=== PATIENT | female | born 1950 | race Caucasian/White ===

== ENCOUNTER → 2016-09-13 | Outpatient (CLI) | payer BC ==
--- NOTE | 2016-09-14 08:15 | MM ---
Reason for exam: screening (asymptomatic). Last mammogram was performed 1 year ago. History: Patient is postmenopausal. Physical Findings: A clinical breast exam by your physician is recommended on an annual basis and results should be correlated with mammographic findings. MG Screening Mammo w CAD Bilateral CC and MLO view(s) were taken. Prior study comparison: September 10, 2015, bilateral MG screening mammo w CAD. September 09, 2014, left breast MG work up mamm w CAD LT. The breast tissue is heterogeneously dense. This may lower the sensitivity of mammography. Finding: There are typically benign round calcifications in both breasts. There is no discrete abnormality. ASSESSMENT: Benign, BI-RAD 2 RECOMMENDATION: Routine screening mammogram of both breasts in 1 year.
== END | disposition home or self-care (01) ==
LOC: RADMAMWWP 07:30
PROVIDERS: ATTEND Obstetrics & Gynecology
DX: Z12.31 Encounter for screening mammogram for malignant neoplasm of breast (principal)

== ENCOUNTER → 2016-11-30 | Outpatient (CLI) | payer BC | END | disposition home or self-care (01) | LOC: LABWHC1 09:39 | PROVIDERS: ATTEND Obstetrics & Gynecology | DX: N83.9 Noninflammatory disorder of ovary, fallopian tube and broad ligament, unspecified (principal) | CPT/HCPCS: 36415; 86304 ==

== ENCOUNTER → 2017-09-05 | Outpatient (CLI) | payer MEDICARE, BC | END | disposition home or self-care (01) | LOC: LABWHC1 06:40 | PROVIDERS: ATTEND Obstetrics & Gynecology | DX: C56.9 Malignant neoplasm of unspecified ovary (principal) | CPT/HCPCS: 36415; 86304 ==

== ENCOUNTER → 2017-09-19 | Outpatient (CLI) | payer MEDICARE, BC ==
--- NOTE | 2017-09-20 10:04 | MM ---
Reason for exam: screening (asymptomatic). Last mammogram was performed 1 year ago. History: Patient is postmenopausal. Physical Findings: A clinical breast exam by your physician is recommended on an annual basis and results should be correlated with mammographic findings. MG Screening Mammo w CAD Bilateral CC and MLO view(s) were taken. Prior study comparison: September 13, 2016, bilateral MG screening mammo w CAD. September 10, 2015, bilateral MG screening mammo w CAD. The breast tissue is heterogeneously dense. This may lower the sensitivity of mammography. There are few typically benign round calcifications in both breasts. There is no discrete abnormality. ASSESSMENT: Benign, BI-RAD 2 RECOMMENDATION: Routine screening mammogram of both breasts in 1 year.
== END | disposition home or self-care (01) ==
LOC: RADMAMWWP 07:56
PROVIDERS: ATTEND Obstetrics & Gynecology
DX: Z12.31 Encounter for screening mammogram for malignant neoplasm of breast (principal)
CPT/HCPCS: 77067

== ENCOUNTER → 2017-09-30 | Outpatient (CLI) | payer MEDICARE, BC | END | disposition home or self-care (01) | LOC: LABWHC1 06:41 | PROVIDERS: ATTEND Obstetrics & Gynecology | DX: C56.9 Malignant neoplasm of unspecified ovary (principal) | CPT/HCPCS: 36415; 86304 ==

== ENCOUNTER → 2017-10-28 | Outpatient (CLI) | payer BC, MEDICARE | LOC: LABWHC1 06:45 | PROVIDERS: ATTEND Obstetrics & Gynecology | DX: C56.9 Malignant neoplasm of unspecified ovary (principal) | CPT/HCPCS: 36415; 86304 ==

== ENCOUNTER → 2018-09-20 | Outpatient (CLI) | payer MEDICARE, BC ==
--- NOTE | 2018-09-21 09:32 | MM ---
Reason for exam: screening (asymptomatic). Last mammogram was performed 1 year ago. History: Patient is postmenopausal. Physical Findings: A clinical breast exam by your physician is recommended on an annual basis and results should be correlated with mammographic findings. MG 3D Screening Mammo W/Cad Bilateral CC and MLO view(s) were taken. XCCL view(s) were taken of the right breast. Prior study comparison: September 19, 2017, bilateral MG screening mammo w CAD. September 13, 2016, bilateral MG screening mammo w CAD. The breast tissue is heterogeneously dense. This may lower the sensitivity of mammography. There is chronic nodularity in the right breast. No significant changes when compared with prior studies. ASSESSMENT: Benign, BI-RAD 2 RECOMMENDATION: Routine screening mammogram of both breasts in 1 year.
== END | disposition home or self-care (01) ==
LOC: RADMAMWWP 07:35
PROVIDERS: ATTEND Family Medicine
DX: Z12.31 Encounter for screening mammogram for malignant neoplasm of breast (principal)
CPT/HCPCS: 77063; 77067

== ENCOUNTER → 2018-10-11 | Outpatient (CLI) | payer MEDICARE, BC ==
[2018-10-11 07:09] LABS: HCT 38.8 % (34.0-46.0); HGB 12.3 gm/dL (11.4-16.0); MCH 30.1 pg (25.0-35.0); MCHC 31.8 g/dL (31.0-37.0); MCV 94.6 fL (80.0-100.0); Mean Platelet Volume 7.6; Platelet Count 365 k/uL (150-450); RDW 13.6 % (11.5-15.5); WBC 9.5 k/uL (3.8-10.6)
[2018-10-11 11:50] LABS: Albumin 4.6 g/dL (3.80-4.90); Albumin/Globulin Ratio 1.92 (1.60-3.17); Anion Gap 8.5 mmol/L (4.00-12.00); Calcium 9.8 mg/dL (8.7-10.3); Carbon Dioxide 25.5 mmol/L (21.6-31.8); Globulin 2.4 g/dL (1.6-3.3); LDL Cholesterol,Calculated 64.2 mg/dL (0.0-131.0); Potassium 4.5 mmol/L (3.5-5.5); Total Bilirubin 0.5 mg/dL (0.3-1.2); VLDL Calculation 16.8 mg/dL (5.00-40.00)
[2018-10-11 16:44] LABS: Amorphous Sediment,Urine Few /hpf; Appearance,Urine Turbid (Clear); Bacteria,Urine Many /hpf; Bilirubin,Urine Negative (Negative); Blood,Urine Negative (Negative); Color,Urine Dark Yellow; Glucose,Urine (UA) Negative (Negative); Ketones,Urine Negative (Negative); Leukocyte Esterase,Urine Large (Negative); Mucus,Urine Many /hpf; Nitrite,Urine Negative (Negative); PH, Urine 5.5 (5.0-8.0); Protein,Urine 1+ (Negative); RBC,Urine 3 /hpf (0-5); Specific Gravity,Urine 1.024 (1.001-1.035); Squamous Epithelial Cell,Urine 37 /hpf (0-4); Urobilinogen,Urine <2.0 mg/dL (<2.0); WBC,Urine 107 /hpf (0-5)
[2018-10-13 21:16] LABS: Hemoglobin A1C 6.9 % (4.0-6.0)
== END ==
LOC: LABWHC1 06:46
PROVIDERS: ATTEND Internal Medicine
DX: E11.9 Type 2 diabetes mellitus without complications (principal); E78.5 Hyperlipidemia, unspecified; C56.1 Malignant neoplasm of right ovary
CPT/HCPCS: 36415; 80053; 80061; 81001; 83036; 85027

== ENCOUNTER 2019-07-12 09:18 | Day surgery (SDC) | payer MEDICARE, BC ==
[2019-07-10 14:25] VITALS: BMI 27.4
[~2019-07-12 09:18] MED LIST: LACTATED RINGERS 1,000 ML IV SCH
[2019-07-12 09:56] VITALS: RESP 16; TEMP 97.9
[2019-07-12] MEDS ORDERED: LIDOCAINE 1% 20 ML VIAL (10MG/ML) FOR IV START INTRADERMA ONE (10:00)
[2019-07-12] MEDS ORDERED: PROPOFOL 10 MG/ML 20 ML VIAL IV ONE (10:38)
[2019-07-12] MEDS ORDERED: LIDOCAINE 1% INJ 10MG/ML (20 ML MDV) ONE (10:38)
--- NOTE | 2019-07-12 10:55 | P.PCN ---
Date of Procedure: 07/12/19 Procedure(s) Performed: BRIEF HISTORY: Patient is a 68-year-old pleasant female scheduled for an elective colonoscopy as a part of screening for colorectal neoplasia. PROCEDURE PERFORMED: Colonoscopy. PREOPERATIVE DIAGNOSIS: Screening for colon cancer. IV sedation per Anesthesia. PROCEDURE: After informed consent was obtained, the patient, was brought into the endoscopy unit. IV sedation was administered by Anesthesia under continuous monitoring. Digital rectal examination was normal. Initially the Olympus CF-160 flexible video colonoscope was then inserted in the rectum, gradually advanced into the cecum without any difficulty. Careful examination was performed as the scope was gradually being withdrawn. Ileocecal valve and the appendiceal orifice were visualized and appeared normal. Prep was excellent. Mucosa of the cecum, ascending colon, transverse colon, descending colon, sigmoid colon, and rectum appeared normal. Anastomosis from previous sigmoid resection was located at 15 cm from the anal was there appeared normal. Retroflexion was performed in the rectum and no lesions were seen. The patient tolerated the procedure well. IMPRESSION: Normal-appearing colon from rectum to cecum with no evidence of colorectal neoplasia. RECOMMENDATIONS: Findings of this examination were discussed with the patient as well as her family. She was advised to have a repeat screening colonoscopy in 10 years.
[2019-07-12 11:03] VITALS: BP 108/65; PULSE 90
== END 2019-07-12 11:33 | disposition home or self-care (01) ==
LOC: ORWHC2ENDO 09:18
PROVIDERS: ATTEND Internal Medicine Gastroenterology
DX: Z12.11 Encounter for screening for malignant neoplasm of colon (principal); I10 Essential (primary) hypertension; E78.5 Hyperlipidemia, unspecified; R32 Unspecified urinary incontinence; Z85.43 Personal history of malignant neoplasm of ovary; Z79.899 Other long term (current) drug therapy; Z90.710 Acquired absence of both cervix and uterus; Z90.722 Acquired absence of ovaries, bilateral; Z90.81 Acquired absence of spleen; Z90.49 Acquired absence of other specified parts of digestive tract
CPT/HCPCS: J2001; J2704; G0121

== ENCOUNTER → 2019-07-26 | Outpatient (CLI) | payer MEDICARE, BC ==
--- NOTE | 2019-07-26 08:00 | BD ---
EXAMINATION TYPE: Axial Bone Density DATE OF EXAM: 07/26/2019 COMPARISON: 09.10.2015 CLINICAL HISTORY: 69 YR OLD FEMALE....ICD-10 CODE: M85.80 DISORDER OF BONE Height: 62 Weight: 148 FRAX RISK QUESTIONS: Family History (Parent hip fracture): YES, MOTHER AND BROTHER NO HIP FX Secondary Osteoporosis: YES 3. Menopause before 45: YES AT 46 RISK FACTORS HISTORY OF: Family History of Osteoporosis: YES, MOTHER AND BROTHER..NO HIP FX Active: YES Postmenopausal woman: YES, AT 46 YRS OLD Hyperparathyroidism: NO Adrenal Insufficiency: NO MEDICATIONS: Additional Medications: HX OF DOUBLE CHEMO TREATMENTS, STATIN FOR CHOLESTEROL, CALCIUM AND VIT D Additional History: HX OF OVARIAN CA, OSTEOARTHRITIS EXAM MEASUREMENTS: Bone mineral densitometry was performed using the [employer] System. Bone mineral density as measured about the Lumbar spine is: ----- L1-L4(G/cm2): 1.357 T Score Values are as follows: ----- L1: 0.9 ----- L2: 0.3 ----- L3: 2.0 ----- L4: 2.1 ----- L1-L4: 1.5 Bone mineral density has: Increased 1.9% since study of: 09.10.2015 Bone mineral density about the R hip (g/cm2): 0.850 Bone mineral density about the L hip (g/cm2): 0.852 T Score values are as follows: -----R Neck: -1.9 -----L Neck: -1.8 -----R Total: -1.3 -----L Total: -1.2 Bone mineral density has: Decreased -8.6% since study of: 09.10.2015 FRAX%s: THERE IS A 10.8% CHANCE FOR A MAJOR OSTEOPOROTIC FX AND A 1.6% FOR HIP.....PROBABILITY FOR FX IN 10 YRS TIME IMPRESSION: Osteopenia (T Score between -2.5 and -1). There is slightly increased risk of fracture and the patient may be considered for treatment. Re-Screen 2-5 years. NOTE: T-SCORE=SD OF THE YOUNG ADULT MEAN.
== END | disposition home or self-care (01) ==
LOC: RADBDWWP 07:13
PROVIDERS: ATTEND Internal Medicine
DX: M85.88 Other specified disorders of bone density and structure, other site (principal)
CPT/HCPCS: 77080

== ENCOUNTER → 2019-09-21 | Outpatient (CLI) | payer MEDICARE ==
--- NOTE | 2019-09-24 09:41 | MM ---
Reason for exam: screening (asymptomatic). Last mammogram was performed 1 year ago. History: Patient is postmenopausal and has history of ovarian cancer at age 66. Physical Findings: A clinical breast exam by your physician is recommended on an annual basis and results should be correlated with mammographic findings. MG 3D Screening Mammo W/Cad Bilateral CC and MLO view(s) were taken. Prior study comparison: September 20, 2018, bilateral MG 3d screening mammo w/cad. September 19, 2017, bilateral MG screening mammo w CAD. The breast tissue is heterogeneously dense. This may lower the sensitivity of mammography. Stable benign calcifications. There is no discrete abnormality. No significant changes when compared with prior studies. ASSESSMENT: Benign, BI-RAD 2 RECOMMENDATION: Routine screening mammogram of both breasts in 1 year.
== END | disposition home or self-care (01) ==
LOC: RADMAMWWP 07:31
PROVIDERS: ATTEND Internal Medicine
DX: Z12.31 Encounter for screening mammogram for malignant neoplasm of breast (principal)
CPT/HCPCS: 77063; 77067

== ENCOUNTER → 2020-10-20 | Outpatient (CLI) | payer MEDICARE ==
--- NOTE | 2020-10-22 09:25 | MM ---
Reason for exam: screening (asymptomatic). Last mammogram was performed 1 year and 1 month ago. History: Patient is postmenopausal and has history of ovarian cancer at age 66. Physical Findings: A clinical breast exam by your physician is recommended on an annual basis and results should be correlated with mammographic findings. MG 3D Screening Mammo W/Cad Bilateral CC and MLO view(s) were taken. Prior study comparison: September 21, 2019, bilateral MG 3d screening mammo w/cad. September 20, 2018, bilateral MG 3d screening mammo w/cad. The breast tissue is heterogeneously dense. This may lower the sensitivity of mammography. There is chronic nodularity in the right breast medially. No significant changes when compared with prior studies. ASSESSMENT: Benign, BI-RAD 2 RECOMMENDATION: Routine screening mammogram of both breasts in 1 year.
== END ==
LOC: RADMAMWWP 08:19
PROVIDERS: ATTEND Internal Medicine
DX: Z12.31 Encounter for screening mammogram for malignant neoplasm of breast (principal); Z85.43 Personal history of malignant neoplasm of ovary
CPT/HCPCS: 77063; 77067

== ENCOUNTER → 2020-12-12 | Outpatient (CLI) | payer MEDICARE ==
[2020-12-12 21:11] LABS: African American GFR (CKD) 53.8 (60.0-200.0); Anion Gap 13.7 mmol/L (4.00-12.00); BUN/Creat Ratio 10.83 Ratio (12.00-20.00); Calcium 10.1 mg/dL (8.7-10.3); Carbon Dioxide 23.3 mmol/L (21.6-31.8); Non-African American GFR(CKD) 46.4 (60.0-200.0); Potassium 4.6 mmol/L (3.5-5.5)
[2020-12-13 03:41] LABS: Creatinine,Urine Random 146.2 mg/dL
== END | disposition home or self-care (01) ==
LOC: LABWHC1 12-04 12:30
PROVIDERS: ATTEND Internal Medicine Nephrology
DX: E87.1 Hypo-osmolality and hyponatremia (principal)
CPT/HCPCS: 36415; 80048; 82570; 83935; 84133; 84300

== ENCOUNTER 2021-07-22 08:06 | Day surgery (SDC) | payer MEDICARE ==
[~2021-07-22 08:06] MED LIST changes: +LIDOCAINE 1% (10MG/ML) FOR IV START INTRADERMA PRN
[2021-07-22 08:32] VITALS: TEMP 98.1
[2021-07-22] MEDS ORDERED: PROPOFOL 10 MG/ML 20 ML VIAL IV ONE (09:12)
--- NOTE | 2021-07-22 09:29 | P.PCN ---
Date of Procedure: 07/22/21 Procedure(s) Performed: BRIEF HISTORY: Patient is a 71-year-old pleasant female scheduled for an elective colonoscopy as a part of screening for colon rectal neoplasia. She has history of colon cancer diagnosed 3 years ago. Presently on immunotherapy. PROCEDURE PERFORMED: Colonoscopy. PREOPERATIVE DIAGNOSIS: Screening for colon cancer. IV sedation per Anesthesia. PROCEDURE: After informed consent was obtained, the patient, was brought into the endoscopy unit. IV sedation was administered by Anesthesia under continuous monitoring. Digital rectal examination was normal. Initially the Olympus CF-160 flexible video colonoscope was then inserted in the rectum, gradually advanced into the cecum without any difficulty. Careful examination was performed as the scope was gradually being withdrawn. Ileocecal valve and the appendiceal orifice were visualized and appeared normal. Prep was excellent. Mucosa of the cecum, ascending colon, transverse colon, descending colon, sigmoid colon, and rectum appeared normal. There was evidence of surgical aarti noted in the distal sigmoid colon at 25 cm from the anal verge. Retroflexion was performed in the rectum and no lesions were seen. The patient tolerated the procedure well. IMPRESSION: Normal-appearing colon from rectum to cecum with no evidence of colorectal neoplasia . RECOMMENDATIONS: Findings of this examination were discussed with the patient as well as a family.. She was advised to have a repeat screening colonoscopy in 5 years from now or earlier based on the recommendations of her oncologist.
[2021-07-22 09:34] VITALS: RESP 16
[2021-07-22 09:51] VITALS: BP 155/75; PULSE 66
== END 2021-07-22 10:05 | disposition home or self-care (01) ==
LOC: ORWHC2ENDO 08:06
PROVIDERS: ATTEND Internal Medicine Gastroenterology
DX: Z85.038 Personal history of other malignant neoplasm of large intestine (principal)
CPT/HCPCS: J2704; G0121

== ENCOUNTER → 2021-10-21 | Outpatient (CLI) | payer MEDICARE ==
--- NOTE | 2021-10-22 11:21 | MM ---
Reason for exam: screening (asymptomatic). Last mammogram was performed 1 year ago. History: Patient is postmenopausal and has history of ovarian cancer at age 66. Physical Findings: A clinical breast exam by your physician is recommended on an annual basis and results should be correlated with mammographic findings. MG 3D Screening Mammo W/Cad Bilateral CC and MLO view(s) were taken. Prior study comparison: October 20, 2020, bilateral MG 3d screening mammo w/cad. September 21, 2019, bilateral MG 3d screening mammo w/cad. The breast tissue is heterogeneously dense. This may lower the sensitivity of mammography. Stable benign calcifications. There is chronic nodularity in the right breast. There is no dominant lesion. No significant changes when compared with prior studies. ASSESSMENT: Benign, BI-RAD 2 RECOMMENDATION: Routine screening mammogram of both breasts in 1 year.
== END | disposition home or self-care (01) ==
LOC: RADMAMWWP 07:56
PROVIDERS: ATTEND Internal Medicine
DX: Z12.31 Encounter for screening mammogram for malignant neoplasm of breast (principal); Z78.0 Asymptomatic menopausal state
CPT/HCPCS: 77063; 77067

== ENCOUNTER → 2022-01-07 | Outpatient (CLI) | payer MEDICARE | END | disposition home or self-care (01) | LOC: LABWHC1 09:38 | PROVIDERS: ATTEND Internal Medicine | DX: Z53.9 Procedure and treatment not carried out, unspecified reason (principal) ==

== ENCOUNTER → 2022-01-13 | Outpatient (CLI) | payer MEDICARE ==
--- NOTE | 2022-01-13 11:36 | BD ---
EXAMINATION TYPE: Axial Bone Density DATE OF EXAM: 01/13/2022 COMPARISON: 07-26-2019 CLINICAL HISTORY: 71 years year old Female. ICD-10 CODE: M85.80 Osteopenia Height: 61.5 Weight: 135.5 FRAX RISK QUESTIONS: Alcohol (3 or more units per day): NO Family History (Parent hip fracture): NO Glucocorticoids (More than 3mos): NO History of Fracture in Adulthood: NO Secondary Osteoporosis: 1. Type 1 Diabetes: NO 2. Hyperthyroidism: NO 3. Menopause before 45: NO 4. Malnutrition: NO 5. Chronic liver disease: NO Rheumatoid Arthritis: NO Current Tobacco Use: NO RISK FACTORS HISTORY OF: Hip Fracture (Right/Left): NO Spine Fracture: NO History of Wrist Fracture: RT When: AGE 6 Surgery to Spine/Hip(right/left)/Wrist (right/left): NO Family History of Osteoporosis: MOTHER AND BROTHER Active: YES Diet low in dairy products/other sources of calcium: YES Postmenopausal woman: YES Take estrogen and/or progesterone medications: NO Lost more than 2 inches in height since high school: NO Frequent falls: NO Poor Health: NO Hyperparathyroidism: NO Adrenal Insufficiency: NO MEDICATIONS: Prednisone or other steroids: NO Thyroid Medications: NO Osteoporosis Medications: NO Additional Medications: LISINOPRIL, LYNPARZA, ROSUVASTATIN, VIT D, CALCIUM, EXAM MEASUREMENTS: Bone mineral densitometry was performed using the [employer] System. Bone mineral density as measured about the Lumbar spine is: ----- L1-L4(G/cm2): 1.251 T Score Values are as follows: ----- L1: -0.5 ----- L2: 0.0 ----- L3: 1.3 ----- L4: 1.0 ----- L1-L4: 0.6 Bone mineral density has: DECREASED 6.3 % since study of: 07/26/2019 Bone mineral density about the R hip (g/cm2): 0.731 Bone mineral density about the L hip (g/cm2): 0.750 T Score values are as follows: -----R Neck: -2.2 -----L Neck: -2.1 -----R Total: -1.8 -----L Total: -1.7 Bone mineral density has: DECREASED 7.9 % since study of: 07/26/2019 FRAX%s: The graph provided illustrates a 13.1% chance for a major osteoporotic fx and a 2.8% chance f or the hips probability for fx in 10 years time. IMPRESSION: Osteopenia NOTE: T-SCORE=SD OF THE YOUNG ADULT MEAN.
== END | disposition home or self-care (01) ==
LOC: RADBDWWP 07:46
PROVIDERS: ATTEND Internal Medicine
DX: M85.89 Other specified disorders of bone density and structure, multiple sites (principal)
CPT/HCPCS: 77080

== ENCOUNTER → 2022-07-05 | Outpatient (CLI) | payer MEDICARE ==
[2022-07-05 11:16] LABS: Basophils # (A) 0.03 X 10*3/uL (0.00-0.10); Basophils % (A) 0.5 %; HCT 28.2 % (37.2-46.3); HGB 9.5 g/dL (12.0-15.0); Immature Grans, Automated 0.5 %; Lymphocytes # (A) 1.02 X 10*3/uL (0.90-5.00); Lymphocytes % (A) 17.1 %; MCH 37.3 pg (27.0-32.0); MCHC 33.7 g/dL (32.0-37.0); MCV 110.6 fL (80.0-97.0); Macrocytosis (M) 2+; Mean Platelet Volume 11.3 fL (9.5-12.2); Monocytes # (A) 0.77 X 10*3/uL (0.20-1.00); Monocytes % (A) 12.9 %; NRBC Per 100 WBC 13.9 /100 WBCS (0.0-0.0); Neutrophils # (A) 3.83 X 10*3/uL (1.80-7.70); Platelet Count 290 X 10*3/uL (140-440); RBC 2.55 X 10*6/uL (4.10-5.20); RDW 15.9 % (11.5-14.5); WBC 5.98 X 10*3/uL (4.50-10.00)
[2022-07-05 11:20] LABS: ALT 14 U/L (8-44); AST 19 U/L (13-35); African American GFR (CKD) 59.3 (60.0-200.0); Albumin 4.3 g/dL (3.8-4.9); Albumin/Globulin Ratio 1.72 (1.60-3.17); Alkaline Phosphatase 45 U/L (41-126); BUN/Creat Ratio 11.27 Ratio (12.00-20.00); Blood Urea Nitrogen 12.4 mg/dL (9.0-27.0); Calcium 9.7 mg/dL (8.7-10.3); Carbon Dioxide 23.9 mmol/L (20.0-27.5); Chloride 99 mmol/L (96-109); Chol/HDL Ratio 2.29 Ratio; Globulin 2.5 g/dL (1.6-3.3); Glucose 89 mg/dL (70-110); Magnesium 1.7 mg/dL (1.5-2.4); Non-African American GFR(CKD) 51.2 (60.0-200.0); Potassium 4.3 mmol/L (3.5-5.5); Sodium 134 mmol/L (135-145); Total Protein 6.8 g/dL (6.2-8.2); VLDL Calculation 12.38 mg/dL (5.00-40.00)
[2022-07-05 14:01] LABS: Appearance,Urine Clear (Clear); Bilirubin,Urine Negative (Negative); Blood,Urine Negative (Negative); Color,Urine Light Yellow; Glucose,Urine (UA) Negative (Negative); Ketones,Urine Negative (Negative); Leukocyte Esterase,Urine Negative (Negative); Nitrite,Urine Negative (Negative); PH, Urine 5.5 (5.0-8.0); Protein,Urine Negative (Negative); Urobilinogen,Urine <2.0 mg/dL (<2.0)
== END | disposition home or self-care (01) ==
LOC: LABWHC1 07:20
PROVIDERS: ATTEND Internal Medicine
DX: Z00.00 Encounter for general adult medical examination without abnormal findings (principal); Z11.59 Encounter for screening for other viral diseases; M85.80 Other specified disorders of bone density and structure, unspecified site; R73.01 Impaired fasting glucose
CPT/HCPCS: 36415; 80053; 80061; 81003; 82306; 83036; 83735; 84443; 85025; 86803

== ENCOUNTER → 2022-10-22 | Outpatient (CLI) | payer MEDICARE ==
--- NOTE | 2022-10-25 09:29 | MM ---
Reason for Exam: Screening (asymptomatic). Last screening mammogram was performed 12 month(s) ago. Patient History: Menarche at age 12. First Full-Term at age 23. Left ovary removed at age 66. Right ovary removed at age 66. Hysterectomy at age 66. Postmenopausal. Ovarian cancer, age 66. Risk Values: Jenna 5 year model risk: 1.7%. NCI Lifetime model risk: 5.0%. Prior Study Comparison: 09/21/2019 Bilateral Screening Mammogram, [facility]. 10/20/2020 Bilateral Screening Mammogram, [facility]. 10/21/2021 Bilateral Screening Mammogram, [facility]. Tissue Density: The breast tissue is heterogeneously dense. This may lower the sensitivity of mammography. Findings: Analyzed By CAD. There are a few scattered benign-appearing round and punctate calcifications throughout the bilateral breasts redemonstrated. Stable benign-appearing bilateral axillary lymph nodes. Stable circumscribed 6 mm rounded mass in the right breast. There is no suspicious new group of microcalcifications or new or enlarging suspicious mass in either breast. Overall Assessment: Benign, BI-RAD 2 Management: Screening Mammogram of both breasts in 1 year. A clinical breast exam by your physician is recommended on an annual basis and results should be correlated with mammographic findings. Electronically signed and approved by: Cuate Diamond M.D.
== END | disposition home or self-care (01) ==
LOC: RADMAMWWP 07:25
PROVIDERS: ATTEND Internal Medicine
DX: Z12.31 Encounter for screening mammogram for malignant neoplasm of breast (principal); Z78.0 Asymptomatic menopausal state
CPT/HCPCS: 77063; 77067

== ENCOUNTER 2023-02-13 06:26 | Inpatient (IN) | payer MEDICARE ==
--- NOTE | 2023-02-13 06:54 | ED ---
SOB HPI - General Chief Complaint: Shortness of Breath Stated Complaint: SOB Time Seen by Provider: 02/13/23 06:42 Source: patient, EMS, RN notes reviewed, old records reviewed Mode of arrival: EMS Limitations: no limitations - History of Present Illness Initial Comments: This is a pleasant 72-year-old female who presents to the emergency room with family member complaining of shortness of breath upon awakening this morning. She denies any chest pain. States that she has had a cough and her shortness of breath is worse when she lays flat. She is being treated with chemotherapy for ovarian cancer. Her last dose was 2 weeks ago and is scheduled for her second dose next week. She denies any fevers, no nausea vomiting or diarrhea. No abdominal pain. No leg swelling. She does have a history of hypertension, osteoarthritis and diabetes. MD Complaint: shortness of breath -: hour(s) Severity scale (1-10): 0 Consistency: constant Improves With: nothing Worsens With: lying flat Known History Of: diabetes, other (ovarian cancer on chemo) Associated Symptoms: cough - Related Data Home Medications Medication Instructions Recorded Confirmed lisinopriL [Prinivil] 20 mg PO DAILY 07/10/19 02/13/23 Gabapentin 300 mg PO HS 02/13/23 02/13/23 Mirtazapine 7.5 mg PO HS 02/13/23 02/13/23 Pantoprazole Sodium [Protonix] 20 mg PO BID 02/13/23 02/13/23 Rosuvastatin Calcium 5 mg PO HS 02/13/23 02/13/23 Allergies Allergy/AdvReac Type Severity Reaction Status Date / Time No Known Allergies Allergy Verified 02/13/23 11:53 Review of Systems ROS Statement: Those systems with pertinent positive or pertinent negative responses have been documented in the HPI. ROS Other: All systems not noted in ROS Statement are negative. Past Medical History Past Medical History: Cancer, Diabetes Mellitus, Hypertension, Osteoarthritis (OA) Additional Past Medical History / Comment(s): Hx ovarian CA, constipation, urinary leakage, History of Any Multi-Drug Resistant Organisms: None Reported Past Surgical History: Appendectomy, Bladder Surgery, Hysterectomy Additional Past Surgical History / Comment(s): bladder suspension, lymph nodes and part of bowel removed with hysterectomy Past Anesthesia/Blood Transfusion Reactions: No Reported Reaction Past Psychological History: No Psychological Hx Reported Past Alcohol Use History: Occasional Past Drug Use History: None Reported - Past Family History Brother(s) Family Medical History: Cancer Mother Family Medical History: Cancer Father Family Medical History: Cancer General Exam Limitations: no limitations General appearance: alert, in no apparent distress Head exam: Present: atraumatic Eye exam: Present: normal appearance. Absent: scleral icterus, conjunctival injection, periorbital swelling Neck exam: Present: full ROM. Absent: meningismus Respiratory exam: Present: rales (bilateral bases). Absent: respiratory distress, chest wall tenderness, accessory muscle use Cardiovascular Exam: Present: tachycardia GI/Abdominal exam: Present: soft Extremities exam: Present: normal capillary refill. Absent: pedal edema, calf tenderness Neurological exam: Present: alert, oriented X3 Psychiatric exam: Present: normal affect, normal mood Skin exam: Present: warm, dry, normal color. Absent: cyanosis, diaphoretic, petechiae, pallor Course Vital Signs 02/13/23 02/13/23 02/13/23 06:32 09:24 09:41 Temperature 97.9 F Pulse Rate 100 96 Respiratory 24 24 Rate Blood Pressure 194/115 169/96 165/102 O2 Sat by Pulse 93 L 100 Oximetry Medical Decision Making - Medical Decision Making Was pt. sent in by a medical professional or institution (, PA, HIGH SPEED PRINTER OPERATOR, urgent care, hospital, or shelter...) When possible be specific @ -No Did you speak to anyone other than the patient for history (EMS, parent, family, police, friend...)? What history was obtained from this source @ -Daughter was able to provide medical history for ovarian cancer diagnosis and chemotherapy treatments Did you review nursing and triage notes (agree or disagree)? Why? @ -I reviewed and agree with nursing and triage notes Were old charts reviewed (outside hosp., previous admission, EMS record, old EKG, old radiological studies, urgent care reports/EKG's, shelter records)? Report findings @ -No old charts were reviewed Differential Diagnosis (chest pain, altered mental status, abdominal pain women, abdominal pain men, vaginal bleeding, weakness, fever, dyspnea, syncope, headache, dizziness, GI bleed, back pain, seizure, CVA, palpatations, mental health, musculoskeletal)? @ -Differential Dyspnea: Coronary syndrome, arrhythmia, tamponade, asthma, COPD, pulmonary embolism, p neumonia, pneumothorax, pulmonary effusion, anaphylaxis, diabetic ketoacidosis, flailed chest, pulmonary contusion, diaphragmatic rupture, anemia, neuromuscular, this is not meant to be an all-inclusive list. EKG interpreted by me (3pts min.). @ -yes EKG interpreted by me shows sinus tachycardia with a ventricular rate of 101, IA interval 0.185, QRS 0.77, QTC 0.389, normal axis. No concerning changes compared to old 05/31/2015. X-rays interpreted by me (1pt min.). @ -yes Chest x-ray interpreted by me shows no evidence of focal consolidation. Blunting of bilateral costophrenic angles. Trachea midline. CT interpreted by me (1pt min.). @ -no U/S interpreted by me (1pt. min.). @ -None done What testing was considered but not performed or refused? (CT, X-rays, U/S, labs)? Why? @ -None What meds were considered but not given or refused? Why? @ -None Did you discuss the management of the patient with other professionals (professionals i.e. , PA, HIGH SPEED PRINTER OPERATOR, lab, RT, psych nurse, secondary social studies teacher, bottom scrubber, teacher, chief supply chain officer, bilingual case manager)? Give summary @ -No Was smoking cessation discussed for >3mins.? @ -No Was critical care preformed (if so, how long)? @ -No Were there social determinants of health that impacted care today? How? (Homelessness, low income, unemployed, alcoholism, drug addiction, felder sportation, low edu. Level, literacy, decrease access to med. care, group home, rehab)? @ -No Was there de-escalation of care discussed even if they declined (Discuss DNR or withdrawal of care, Hospice)? DNR status @ -No What co-morbidities impacted this encounter? (DM, HTN, Smoking, COPD, CAD, Cancer, CVA, ARF, Chemo, Hep., AIDS, mental health diagnosis, sleep apnea, morbid obesity)? @ -History of ovarian cancer, diabetes, hypertension, osteoarthritis, appendectomy, hysterectomy Was patient admitted / discharged? Hospital course, mention meds given and route, prescriptions, significant lab abnormalities, going to OR and other pertinent info. @ -Admitted This is a pleasant 72-year-old female who presents to the emergency room with family member complaining of shortness of breath upon awakening this morning. She denies any chest pain. States that she has had a cough and her shortness of breath is worse when she lays flat. She is being treated with chemotherapy for ovarian cancer. Her last dose was 2 weeks ago and is scheduled for her second dose next week. She denies any fevers, no nausea vomiting or diarrhea. No abdominal pain. No leg swelling. Patient states this is her third recurrence of ovarian cancer initial diagnosis in November 2016, again November 2019 and was recently again in November 2022. Found this time in pelvic lymph nodes. Currently being treated at [facility] with IV chemotherapy first dose 2 weeks ago. EKG interpreted by me shows sinus tachycardia with a ventricular rate of 101, IA interval 0.185, QRS 0.77, QTC 0.389, normal axis. No concerning changes compared to old 05/31/2015. Patient denies any chest pain however continues to be short of breath. Patient was given Lasix, nitro and Vasotec for her hypertensive urgency. States improvement in her breathing. Chest x-ray interpreted by me shows no evidence of focal consolidation. Blunting of bilateral costophrenic angles. Trachea midline. Radiologist interpretation background COPD changes with pulmonary vascular congestion and small bilateral pleural effusions. Troponin elevated at 0.102, magnesium 1.4, sodium 124, d-dimer elevated, patient was started on heparin drip. CTA of the chest shows no evidence of pulmonary embolism. Cardiomegaly with p ulmonary vascular congestion, and Trileptal either septal thickening and moderate bilateral pleural effusions consistent with CHF exacerbation. Patient will be admitted with NSTEMI, new onset CHF, hyponatremia and hypomagnesemia. She is agreeable to this plan of care Case discussed with Dr. Boswell Undiagnosed new problem with uncertain prognosis? @ -New onset congestive heart failure Drug Therapy requiring intensive monitoring for toxicity (Heparin, Nitro, Insulin, Cardizem)? @ -Heparin Were any procedures done? @ -No Diagnosis/symptom? @ -nstemi, new onset congestive heart failure, hyponatremia, hypomagnesemia, ovarian cancer, hypertensive urgency, elevated d-dimer Acute, or Chronic, or Acute on Chronic? @ -Acute Uncomplicated (without systemic symptoms) or Complicated (systemic symptoms)? @ -Complicated Side effects of treatment? @ -No Exacerbation, Progression, or Severe Exacerbation? @ -No Poses a threat to life or bodily function? How? (Chest pain, [place], [place], pneumonia, PE, COPD, DKA, ARF, appy, cholecystitis, CVA, Diverticulitis, Homicidal, Suicidal, threat to staff... and all critical care pts) @ -Yes new-onset congestive heart failure, NSTEMI - Lab Data Result diagrams: 02/13/23 06:55 02/13/23 09:00 Lab Results 02/13/23 02/13/23 02/13/23 Range/Units 06:55 06:55 06:55 WBC 3.8 (3.8-10.6) k/uL RBC 2.72 L (3.80-5.40) m/uL Hgb 9.5 L (11.4-16.0) gm/dL Hct 27.9 L (34.0-46.0) % MCV 102.8 H (80.0-100.0) fL MCH 34.9 (25.0-35.0) pg MCHC 33.9 (31.0-37.0) g/dL RDW 15.9 H (11.5-15.5) % Plt Count 236 (150-450) k/uL MPV 8.7 Neutrophils % 57 % Lymphocytes % 29 % Monocytes % 10 % Eosinophils % 1 % Basophils % 0 % Neutrophils # 2.2 (1.3-7.7) k/uL Lymphocytes # 1.1 (1.0-4.8) k/uL Monocytes # 0.4 (0-1.0) k/uL Eosinophils # 0.0 (0-0.7) k/uL Basophils # 0.0 (0-0.2) k/uL Macrocytosis Slight PT 10.1 (9.0-12.0) sec INR 0.9 (<1.2) APTT 19.5 L (22.0-30.0) sec D-Dimer 1.17 H (<0.60) mg/L FEU Sodium 124 L (137-145) mmol/L Potassium 4.6 (3.5-5.1) mmol/L Chloride 95 L (98-107) mmol/L Carbon Dioxide 18 L (22-30) mmol/L Anion Gap 11 mmol/L BUN 13 (7-17) mg/dL Creatinine 0.74 (0.52-1.04) mg/dL Est GFR (CKD-EPI)AfAm >90 (>60 ml/min/1.73 sqM) Est GFR (CKD-EPI)NonAf 83 (>60 ml/min/1.73 sqM) Glucose 116 H (74-99) mg/dL Osmolality (280-301) mosm/kg Plasma Lactic Acid [place] (0.7-2.0) mmol/L Calcium 8.6 (8.4-10.2) mg/dL Magnesium 1.5 L (1.6-2.3) mg/dL Total Bilirubin 0.4 (0.2-1.3) mg/dL AST 49 H (14-36) U/L ALT 36 H (4-34) U/L Alkaline Phosphatase 53 (38-126) U/L Troponin I (0.000-0.034) ng/mL NT-Pro-B Natriuret Pep pg/mL Total Protein 6.3 (6.3-8.2) g/dL Albumin 3.6 (3.5-5.0) g/dL TSH (0.465-4.680) mIU/L Cortisol ug/dL Urine Color Urine Appearance (Clear) Urine pH (5.0-8.0) Ur Specific [place] (1.001-1.035) Urine Protein (Negative) Urine Glucose (UA) (Negative) Urine Ketones (Negative) Urine Blood (Negative) Urine Nitrite (Negative) Urine Bilirubin (Negative) Urine Urobilinogen (<2.0) mg/dL Ur Leukocyte Esterase (Negative) 02/13/23 02/13/23 02/13/23 Range/Units 06:55 06:55 06:55 WBC (3.8-10.6) k/uL RBC (3.80-5.40) m/uL Hgb (11.4-16.0) gm/dL Hct (34.0-46.0) % MCV (80.0-100.0) fL MCH (25.0-35.0) pg MCHC (31.0-37.0) g/dL RDW (11.5-15.5) % Plt Count (150-450) k/uL MPV Neutrophils % % Lymphocytes % % Monocytes % % Eosinophils % % Basophils % % Neutrophils # (1.3-7.7) k/uL Lymphocytes # (1.0-4.8) k/uL Monocytes # (0-1.0) k/uL Eosinophils # (0-0.7) k/uL Basophils # (0-0.2) k/uL Macrocytosis PT (9.0-12.0) sec INR (<1.2) APTT (22.0-30.0) sec D-Dimer (<0.60) mg/L FEU Sodium (137-145) mmol/L Potassium (3.5-5.1) mmol/L Chloride (98-107) mmol/L Carbon Dioxide (22-30) mmol/L Anion Gap mmol/L BUN (7-17) mg/dL Creatinine (0.52-1.04) mg/dL Est GFR (CKD-EPI)AfAm (>60 ml/min/1.73 sqM) Est GFR (CKD-EPI)NonAf (>60 ml/min/1.73 sqM) Glucose (74-99) mg/dL Osmolality (280-301) mosm/kg Plasma Lactic Acid [place] 1.5 (0.7-2.0) mmol/L Calcium (8.4-10.2) mg/dL Magnesium (1.6-2.3) mg/dL Total Bilirubin (0.2-1.3) mg/dL AST (14-36) U/L ALT (4-34) U/L Alkaline Phosphatase (38-126) U/L Troponin I 0.102 H* (0.000-0.034) ng/mL NT-Pro-B Natriuret Pep 08953 pg/mL Total Protein (6.3-8.2) g/dL Albumin (3.5-5.0) g/dL TSH (0.465-4.680) mIU/L Cortisol ug/dL Urine Color Urine Appearance (Clear) Urine pH (5.0-8.0) Ur Specific [place] (1.001-1.035) Urine Protein (Negative) Urine Glucose (UA) (Negative) Urine Ketones (Negative) Urine Blood (Negative) Urine Nitrite (Negative) Urine Bilirubin (Negative) Urine Urobilinogen (<2.0) mg/dL Ur Leukocyte Esterase (Negative) 02/13/23 02/13/23 02/13/23 Range/Units 09:00 09:00 09:41 WBC (3.8-10.6) k/uL RBC (3.80-5.40) m/uL Hgb (11.4-16.0) gm/dL Hct (34.0-46.0) % MCV (80.0-100.0) fL MCH (25.0-35.0) pg MCHC (31.0-37.0) g/dL RDW (11.5-15.5) % Plt Count (150-450) k/uL MPV Neutrophils % % Lymphocytes % % Monocytes % % Eosinophils % % Basophils % % Neutrophils # (1.3-7.7) k/uL Lymphocytes # (1.0-4.8) k/uL Monocytes # (0-1.0) k/uL Eosinophils # (0-0.7) k/uL Basophils # (0-0.2) k/uL Macrocytosis PT (9.0-12.0) sec INR (<1.2) APTT (22.0-30.0) sec D-Dimer (<0.60) mg/L FEU Sodium (137-145) mmol/L Potassium (3.5-5.1) mmol/L Chloride (98-107) mmol/L Carbon Dioxide (22-30) mmol/L Anion Gap mmol/L BUN (7-17) mg/dL Creatinine 0.73 (0.52-1.04) mg/dL Est GFR (CKD-EPI)AfAm (>60 ml/min/1.73 sqM) Est GFR (CKD-EPI)NonAf (>60 ml/min/1.73 sqM) Glucose (74-99) mg/dL Osmolality 264 L (280-301) mosm/kg Plasma Lactic Acid [place] (0.7-2.0) mmol/L Calcium (8.4-10.2) mg/dL Magnesium (1.6-2.3) mg/dL Total Bilirubin (0.2-1.3) mg/dL AST (14-36) U/L ALT (4-34) U/L Alkaline Phosphatase (38-126) U/L Troponin I (0.000-0.034) ng/mL NT-Pro-B Natriuret Pep pg/mL Total Protein (6.3-8.2) g/dL Albumin (3.5-5.0) g/dL TSH 1.170 (0.465-4.680) mIU/L Cortisol 22 ug/dL Urine Color Colorless Urine Appearance Clear (Clear) Urine pH 5.0 (5.0-8.0) Ur Specific [place] 1.010 (1.001-1.035) Urine Protein Negative (Negative) Urine Glucose (UA) Negative (Negative) Urine Ketones Negative (Negative) Urine Blood Negative (Negative) Urine Nitrite Negative (Negative) Urine Bilirubin Negative (Negative) Urine Urobilinogen <2.0 (<2.0) mg/dL Ur Leukocyte Esterase Negative (Negative) - EKG Data -: EKG Interpreted by Me Rate: tachycardia (EKG interpreted by me shows sinus tachycardia with a ventricular rate of 101, IA interval 0.185, QRS 0.77, QTC 0.389, normal axis) Critical Care Time Critical Care Time: Yes Total Critical Care Time: 32 (heparin) Disposition Clinical Impression: Hyponatremia, Hypomagnesemia, Hypertensive urgency, New onset of congestive heart failure, Elevated d-dimer, NSTEMI (non-ST elevated myocardial infarction) Disposition: ADMITTED IP TO THIS HOSP
--- NOTE | 2023-02-13 07:05 | XR ---
EXAMINATION TYPE: XR chest 2V DATE OF EXAM: 02/13/2023 7:00 AM COMPARISON: Chest radiographs from 05/31/2015 TECHNIQUE: XR chest 2V Frontal and lateral views of the chest. CLINICAL INDICATION:Female, 72 years old with history of difficulty breathing; FINDINGS: Lungs/Pleura: Blunting of both costophrenic angles. No focal consolidation. No pneumothorax. COPD changes. Pulmonary vascularity: Pulmonary vascular congestion. Heart/mediastinum: Cardiomediastinal silhouette is prominent in size. Musculoskeletal: No acute osseous pathology. IMPRESSION: Background COPD changes with pulmonary vascular congestion and small bilateral pleural effusions.
[2023-02-13] MEDS ORDERED: FUROSEMIDE 10 MG/ML 2 ML VIAL IV ONE (07:12)
[2023-02-13 07:18] LABS: ALT 36 U/L (4-34); AST 49 U/L (14-36); African American GFR (CKD) >90 (>60 ml/min/1.73 sqM); Albumin 3.6 g/dL (3.5-5.0); Alkaline Phosphatase 53 U/L (38-126); Anion Gap 11 mmol/L; Blood Urea Nitrogen 13 mg/dL (7-17); Calcium 8.6 mg/dL (8.4-10.2); Carbon Dioxide 18 mmol/L (22-30); Chloride 95 mmol/L (98-107); Glucose 116 mg/dL (74-99); Magnesium 1.5 mg/dL (1.6-2.3); Non-African American GFR(CKD) 83 (>60 ml/min/1.73 sqM); Potassium 4.6 mmol/L (3.5-5.1); Sodium 124 mmol/L (137-145); Total Bilirubin 0.4 mg/dL (0.2-1.3); Total Protein 6.3 g/dL (6.3-8.2)
[2023-02-13 07:20] LABS: Basophils % (A) 0 %; Eosinophils % (A) 1 %; HCT 27.9 % (34.0-46.0); HGB 9.5 gm/dL (11.4-16.0); Lymphocytes # (A) 1.1 k/uL (1.0-4.8); Lymphocytes % (A) 29 %; MCH 34.9 pg (25.0-35.0); MCHC 33.9 g/dL (31.0-37.0); MCV 102.8 fL (80.0-100.0); Macrocytosis Slight; Mean Platelet Volume 8.7; Monocytes # (A) 0.4 k/uL (0-1.0); Monocytes % (A) 10 %; Neutrophils # (A) 2.2 k/uL (1.3-7.7); Neutrophils % (A) 57 %; Platelet Count 236 k/uL (150-450); RBC 2.72 m/uL (3.80-5.40); RDW 15.9 % (11.5-15.5); WBC 3.8 k/uL (3.8-10.6)
[2023-02-13] MEDS ORDERED: Magnesium Replacement Protocol 1 EACH MISC MISCELLANE PRN (07:25)
[2023-02-13] MEDS ORDERED: FUROSEMIDE 10 MG/ML 4 ML VIAL IV STA (07:29)
[2023-02-13 07:31] LABS: INR 0.9 (<1.2); Prothrombin Time 10.1 sec (9.0-12.0)
[2023-02-13 07:51] LABS: Partial Thromboplastin Time 19.5 sec (22.0-30.0)
[2023-02-13] MEDS ORDERED: HEPARIN SODIUM 1,000 UN/ML (10ML VL) IV PRN (07:58)
[2023-02-13] MEDS ORDERED: HEPARIN SODIUM 1,000 UN/ML (10ML VL) IV ONE (07:58)
[2023-02-13] MEDS ORDERED: ENALAPRILAT 1.25 MG/ML 1 ML VIAL IVP STA (08:30)
[2023-02-13] MEDS ORDERED: NITROGLYCERIN OINT 1 INCH/GM PACKET TOPICAL STA (08:30)
[2023-02-13] MEDS: HEPARIN SOD,PORK IN 0.45% NACL 25,000 UNIT in 0.45% NACL 1 250ML.BAG IV SCH (08:32)
--- NOTE | 2023-02-13 09:16 | CT ---
EXAMINATION TYPE: CT angio chest CT DLP: 277.7 mGycm, Automated exposure control for dose reduction was used. DATE OF EXAM: 02/13/2023 9:05 AM COMPARISON: Chest radiograph from same day. CLINICAL INDICATION:Female, 72 years old with history of SOB elevated dimer, current ovarian cancer; SOB TECHNIQUE/CONTRAST: CTA scan of the thorax is performed without and with IV Contrast, patient injected with 100 ml mL of Isovue 370, pulmonary embolism protocol. MIP images are created and reviewed. FINDINGS: Pulmonary Artery: There is no evidence for a filling defect within the pulmonary vasculature to sugge st acute pulmonary embolism. The pulmonary artery is of normal size. Reflux of contrast into the IVC . Lungs/Pleura: Moderate bilateral pleural effusions with partial atelectasis of the bilateral lower lo bes. Intralobular septal thickening identified. No pneumothorax. Airway: Large airways are patent. Heart: Mildly enlarged heart. Trace pericardial effusion. Small coronary arterial calcifications. Vasculature: No evidence of aortic aneurysm. Mediastinum: Mildly prominent bilateral hilar mediastinal lymph nodes. Musculoskeletal: No acute osseous abnormalities. Healing right lateral first, fourth and fifth rib fr actures. No aggressive osseous lesion. Mild multilevel degenerative disc disease. Soft Tissues: Unremarkable. Lower neck: Right thyroid lobe 1.1 cm hypodense nodule.. Upper Abdomen: No significant findings. IMPRESSION: 1. No evidence of pulmonary embolism. 2. Cardiomegaly with pulmonary vascular congestion, intralobular septal thickening, and moderate bila teral pleural effusions. This is most consistent with CHF exacerbation.
[2023-02-13] MEDS ORDERED: NALOXONE 0.4 MG/ML 1 ML VIAL IV PRN (09:27)
[2023-02-13] MEDS ORDERED: ACETAMINOPHEN TAB 325 MG TAB PO PRN (09:27)
[2023-02-13] MEDS: MAGNESIUM SULFATE-D5W PMX 1 GM in DEXTROSE/WATER 1 100ML.BAG IVPB SCH ×2 (10:47→11:09)
[2023-02-13 11:24] LABS: Glucose,Whole Blood 132 mg/dL (70-110)
[2023-02-13 12:40] LABS: Appearance,Urine Clear (Clear); Bilirubin,Urine Negative (Negative); Blood,Urine Negative (Negative); Color,Urine Colorless; Glucose,Urine (UA) Negative (Negative); Ketones,Urine Negative (Negative); Leukocyte Esterase,Urine Negative (Negative); Nitrite,Urine Negative (Negative); Protein,Urine Negative (Negative); Urobilinogen,Urine <2.0 mg/dL (<2.0)
--- NOTE | 2023-02-13 15:15 | P.HPIM ---
History of Present Illness H&P Date: 02/13/23 72-year-old female with PMH of hypertension, GERD, dyslipidemia, history of ovarian cancer currently undergoing chemotherapy at [facility] presents the ED for shortness of breath and lower extremity swelling that has been progressively getting worse over the past 3 days. She reports 2 pillow orthopnea. Her symptoms are worse with exertion. She denies any chest pain. In the ED, her BP was elevated at 194/115 with heart rate of 100 and O2 saturation of 92% on 2 L nasal cannula. CBC showed hemoglobin of 9.5 with MCV of 102.8. Coagulation panel showed a PTT of 43.1. D-dimer 1.17. CMP showed sodium 124, chloride of 95, bicarb of 18, glucose of 116, osmolality of 264, AST of 49, ALT of 36. BNP was 22,600. TSH 1.17. Cortisol 22. Troponin 0.102. Magnesium 1.5. Urinalysis negative. Chest x-ray showed pulmonary vascular congestion and small bilateral pleural effusion. CTA chest showed no PE, cardiomegaly with pulmonary vascular congestion and moderate bilateral pleural e ffusions. EKG showed sinus tachycardia with Q waves, ventricular rate of 101. Pertinent positives and negatives as discussed in HPI, a complete review of systems was performed and all other systems are negative. General: non toxic, no distress, appears at stated age Derm: warm, dry Head: atraumatic, normocephalic, symmetric Eyes: EOMI, no lid lag, anicteric sclera Mouth: no lip lesion, mucus membranes moist Cardiovascular: Tachycardic, no murmur, positive posterior tibial pulse bilateral, Lungs: Decreased breath sounds bilateral, rales at the bases, no accessory muscle use Abdominal: soft, nontender to palpation, no guarding, no appreciable organomegaly Ext: no gross muscle atrophy, no edema, no contractures Neuro: no focal neuro deficits Psych: Alert, oriented, appropriate affect CHF exacerbation Hypertensive urgency Troponin elevation Macrocytic anemia Elevated d-dimer Hyponatremia Hypochloremic metabolic acidosis Hypomagnesemia Transaminitis Chronic conditions: Hypertension, GERD, dyslipidemia, history of ovarian cancer currently undergoing chemotherapy at [facility] Based on my assessment of this patient, this patient meets a high complexity level of care. Patient has an acute diagnosis of CHF exacerbation that poses a threat to life or bodily function. Currently requiring 3 L nasal cannula to maintain O2 saturation greater than 92%. She also has a troponin elevation of 0.102. Her BP was elevated on admission, 194/115. Started on heparin drip at 12 units per kilogram per hour. Trend Trop/EKG to rule out ACS. Telemetry monitoring. Cardiology consultation. Patient be started on Lasix 40 mg IV daily. Strict intake and output take ordered along with daily weights. Echocardiogram ordered. Start Coreg 6.25 mg by mouth twice a day. Obtain B12 and folic acid. Hyponatremia likely related to volume overload. Hopeful improvement with diuresis. Magnesium replaced as per protocol. LFTs are nonobstructive. Unknown etiology. Oncology consultation. Heparin drip for DVT prophylaxis. FULL CODE. I have reviewed the following solution consultant notes: I have reviewed the results of the following tests: CBC, CMP, coagulation panel, d-dimer, serum osmolality, BNP, TSH, cortisol, troponin, and easy him, urinalysis, chest x-ray, CT chest. I have ordered the following tests: Troponin, echocardiogram, PTT, B12, folic acid, CBC, BMP. I have discussed the care of this patient with the following independent historian: Case discussed with the daughter at bedside. I have independently interpreted the following test below: EKG as above. I have discussed the management of this patient with the following physician: Case discussed extensively with the ED provider. This patient has a high risk of morbidity due to the following reasons: Patient is currently on a heparin drip which were his intensive monitoring of PTT. Past Medical History Past Medical History: Cancer, Hypertension, Osteoarthritis (OA) Additional Past Medical History / Comment(s): Hx ovarian CA 2016, recurrence of ovarian CA in 2019 and now currently on chemo, last chemo 01/20/23, constipation, urinary leakage, possible diabetes (being tested) History of Any Multi-Drug Resistant Organisms: None Reported Past Surgical History: Appendectomy, Bladder Surgery, Hysterectomy Additional Past Surgical History / Comment(s): Bladder suspension, lymph nodes and part of bowel removed with hysterectomy, spleen removed Past Anesthesia/Blood Transfusion Reactions: No Reported Reaction Past Psychological History: No Psychological Hx Reported Smoking Status: Never smoker Past Alcohol Use History: Occasional Past Drug Use History: None Reported - Past Family History Brother(s) Family Medical History: Cancer Mother Family Medical History: Cancer Additional Family Medical History / Comment(s): Bone cancer Father History Unknown: Yes Family Medical History: Cancer Medications and Allergies Home Medications Medication Instructions Recorded Confirmed Type lisinopriL [Prinivil] 20 mg PO DAILY 07/10/19 02/13/23 History Gabapentin 300 mg PO HS 02/13/23 02/13/23 History Mirtazapine 7.5 mg PO HS 02/13/23 02/13/23 History Pantoprazole Sodium [Protonix] 20 mg PO BID 02/13/23 02/13/23 History Rosuvastatin Calcium 5 mg PO HS 02/13/23 02/13/23 History Allergies Allergy/AdvReac Type Severity Reaction Status Date / Time No Known Allergies Allergy Verified 02/13/23 11:53 Physical Exam Vitals: Vital Signs Temp Pulse Pulse Resp BP BP Pulse Ox 02/13/23 14:28 89 02/13/23 11:16 98.0 F 89 16 174/98 97 02/13/23 09:41 96 24 165/102 100 02/13/23 09:24 169/96 02/13/23 06:32 97.9 F 100 24 194/115 93 L Intake and Output 02/13/23 02/13/23 02/13/23 06:59 14:59 22:59 Intake Total 216.47 Balance 216.47 Intake: Intake, IV Titration 36.47 Amount Heparin Sod,Pork in 0.45% 36.47 NaCl 25,000 unit In 0.45 % NaCl 1 250ml.bag @ 12 UNITS/KG/HR 7.294 mls/hr IV .Q24H [facility] Rx#: [id number] Oral 180 Other: Voiding Method Toilet # Bowel Movements 1 Weight 134 kg 60.781 kg Results CBC & Chem 7: 02/13/23 06:55 02/13/23 09:00 Labs: Abnormal Lab Results - Last 24 Hours (Table) 02/13/23 02/13/23 02/13/23 Range/Units 06:55 06:55 06:55 RBC 2.72 L (3.80-5.40) m/uL Hgb 9.5 L (11.4-16.0) gm/dL Hct 27.9 L (34.0-46.0) % MCV 102.8 H (80.0-100.0) fL RDW 15.9 H (11.5-15.5) % APTT 19.5 L (22.0-30.0) sec D-Dimer 1.17 H (<0.60) mg/L FEU Sodium 124 L (137-145) mmol/L Chloride 95 L (98-107) mmol/L Carbon Dioxide 18 L (22-30) mmol/L Glucose 116 H (74-99) mg/dL POC Glucose (mg/dL) (70-110) mg/dL Osmolality (280-301) mosm/kg Magnesium 1.5 L (1.6-2.3) mg/dL AST 49 H (14-36) U/L ALT 36 H (4-34) U/L Troponin I (0.000-0.034) ng/mL 02/13/23 02/13/23 02/13/23 Range/Units 06:55 09:00 11:23 RBC (3.80-5.40) m/uL Hgb (11.4-16.0) gm/dL Hct (34.0-46.0) % MCV (80.0-100.0) fL RDW (11.5-15.5) % APTT (22.0-30.0) sec D-Dimer (<0.60) mg/L FEU Sodium (137-145) mmol/L Chloride (98-107) mmol/L Carbon Dioxide (22-30) mmol/L Glucose (74-99) mg/dL POC Glucose (mg/dL) 132 H (70-110) mg/dL Osmolality 264 L (280-301) mosm/kg Magnesium (1.6-2.3) mg/dL AST (14-36) U/L ALT (4-34) U/L Troponin I 0.102 H* (0.000-0.034) ng/mL 02/13/23 Range/Units 11:43 RBC (3.80-5.40) m/uL Hgb (11.4-16.0) gm/dL Hct (34.0-46.0) % MCV (80.0-100.0) fL RDW (11.5-15.5) % APTT 43.1 H (22.0-30.0) sec D-Dimer (<0.60) mg/L FEU Sodium (137-145) mmol/L Chloride (98-107) mmol/L Carbon Dioxide (22-30) mmol/L Glucose (74-99) mg/dL POC Glucose (mg/dL) (70-110) mg/dL Osmolality (280-301) mosm/kg Magnesium (1.6-2.3) mg/dL AST (14-36) U/L ALT (4-34) U/L Troponin I (0.000-0.034) ng/mL Thrombosis Risk Factor Assmnt - Choose All That Apply Any of the Below Risk Factors Present?: Yes Each Factor Represents 1 point: Obesity (BMI >25), Swollen legs (current) Other Risk Factors: Yes Each Risk Factor Represents 2 Points: Age 61-74 years Other congenital or acquired thrombophilia - If yes, enter type in comment: No Thrombosis Risk Factor Assessment Total Risk Factor Score: 4 Thrombosis Risk Factor Assessment Level: Moderate Risk
[2023-02-13 16:36] LABS: Glucose,Whole Blood 150 mg/dL (70-110)
[2023-02-13] MEDS: carvediloL 6.25 MG TAB PO SCH (17:20)
[2023-02-13 20:14] LABS: Glucose,Whole Blood 117 mg/dL (70-110)
[2023-02-13] MEDS: MIRTAZAPINE 15 MG TAB PO SCH (20:27)
[2023-02-13] MEDS: GABAPENTIN 300 MG CAP PO SCH (20:27)
[2023-02-13] MEDS: ATORVASTATIN 10 MG TAB PO SCH (20:28)
[2023-02-13] MEDS: PANTOPRAZOLE 40 MG TABLET PO SCH (20:28)
[2023-02-14] MEDS: carvediloL 6.25 MG TAB PO SCH ×2 (05:46→16:25)
[2023-02-14 06:13] LABS: Glucose,Whole Blood 104 mg/dL (70-110)
[2023-02-14 08:43] LABS: Anisocytosis Slight; HCT 26.7 % (34.0-46.0); MCH 34.2 pg (25.0-35.0); MCHC 33.7 g/dL (31.0-37.0); MCV 101.6 fL (80.0-100.0); Macrocytosis Slight; Mean Platelet Volume 9.7; Platelet Count 247 k/uL (150-450); RBC 2.63 m/uL (3.80-5.40); RDW 16.4 % (11.5-15.5); WBC 4.1 k/uL (3.8-10.6)
[2023-02-14 09:24] LABS: Eosinophils # (M) 0.08 k/uL (0-0.7); Lymphocytes # (M) 1.07 k/uL (1.0-4.8); Monocytes # (M) 0.57 k/uL (0-1.0); Neutrophils # (M) 2.38 k/uL (1.3-7.7); Neutrophils % (M) 58 %; Nucleated Red Blood Cells 0 /100 WBC (0-0); Total Cells Counted 100
[2023-02-14 09:27] LABS: Howell-Jolly Bodies Present; Large Platelets Present
[2023-02-14 09:29] LABS: Poikilocytosis (M) Present
[2023-02-14] MEDS: PANTOPRAZOLE 40 MG TABLET PO SCH ×2 (09:33→21:57)
[2023-02-14] MEDS: FUROSEMIDE 10 MG/ML 4 ML VIAL IV SCH (09:33)
[2023-02-14] MEDS: lisinopriL 20 MG TAB PO SCH (09:33)
[2023-02-14 09:38] LABS: African American GFR (CKD) 81 (>60 ml/min/1.73 sqM); Anion Gap 7 mmol/L; Blood Urea Nitrogen 16 mg/dL (7-17); Calcium 8.4 mg/dL (8.4-10.2); Carbon Dioxide 23 mmol/L (22-30); Chloride 92 mmol/L (98-107); Glucose 117 mg/dL (74-99); Magnesium 1.9 mg/dL (1.6-2.3); Non-African American GFR(CKD) 70 (>60 ml/min/1.73 sqM); Potassium 4.2 mmol/L (3.5-5.1); Sodium 122 mmol/L (137-145)
[2023-02-14] MEDS: HEPARIN SOD,PORK IN 0.45% NACL 25,000 UNIT in 0.45% NACL 1 250ML.BAG IV SCH (09:38)
[2023-02-14 11:33] LABS: Glucose,Whole Blood 187 mg/dL (70-110)
--- NOTE | 2023-02-14 11:40 | P.CRDCN ---
History of Present Illness History of present illness: HISTORY OF PRESENT ILLNESS: This is a 72-year-old female with a past medical history significant for hypertension, hyperlipidemia, and ovarian cancer currently undergoing chemotherapy in [place]. 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 We have been asked to see the patient in consultation for congestive heart failure. Patient examined at the bedside. Patients daughter present time of examination. Patient presented to the hospital for chief complaint of shortness of breath. Patient states her shortness of breath started on and progressively got worse. Patient was found to have congestive heart failure. Patient was started on IV Lasix. The patient denies having any chest pain or pressure. * EKG reveals sinus tachycardia without signs of acute ischemia * Chest xray background COPD changes with pulmonary vascular congestion and small bilateral pleural effusions * Laboratory data: WBC 4.1. Hemoglobin 9.0. Platelet count 247. Sodium 122. Potassium 4.2. BUN 16. Creatinine 0.85. Troponin 0.102. 0.152. 0.131. ProBNP 22,600. * Current home cardiac medications include lisinopril 20 mg daily and Crestor 5 mg at night REVIEW OF SYSTEMS: At the time of my exam: CONSTITUTIONAL: Denies fever or chills. HEENT: Denies blurred vision, vision changes, or eye pain. Denies hemoptysis CARDIOVASCULAR: Denies chest pain. Denies orthopnea. Denies PND. Denies palpitations RESPIRATORY: Denies shortness of breath. GASTROINTESTINAL: Denies abdominal pain. Denies nausea or vomiting. HEMATOLOGIC: Denies bleeding disorders. GENITOURINARY: Denies any blood in urine. SKIN: Denies pruitis. Denies rash. PHYSICAL EXAM: VITAL SIGNS: Reviewed. GENERAL: Well-developed in no acute distress. HEENT: Head is normocephalic. Pupils are equal, round. Sclerae anicteric. Mucous membranes of the mouth are moist. Neck supple. No JVD or thyromegaly LUNGS: Respirations even and unlabored. Lungs diminished to auscultation bilaterally. HEART: Regular rate and rhythm. S1 and S2 heard. Soft systolic murmur. ABDOMEN: Soft. Nondistended. Nontender. EXTREMITIES: Normal range of motion. No clubbing or cyanosis. Peripheral pulses intact. Trace lower extremity edema NEUROLOGIC: Awake and alert. Oriented x 3. ASSESSMENT: Shortness of breath Acute heart failure, type unknown, echo pending Abnormal troponins, flat, suspect secondary to above Hypertension Hyperlipidemia Ovarian cancer, currently undergoing chemotherapy PLAN: Obtain 2D echo to assess cardiac structure and function Resume home cardiac medications Continue IV Lasix Daily weights, accurate I&O, and monitoring of kidney function Continue IV heparin until echocardiogram has been resulted Further recommendations pending patient's course Nurse practitioner note has been reviewed by physician. Signing provider agrees with the documented findings, assessment, and plan of care. Past Medical History Past Medical History: Cancer, Diabetes Mellitus, Hypertension, Osteoarthritis (OA) Additional Past Medical History / Comment(s): Hx ovarian CA, constipation, urinary leakage, History of Any Multi-Drug Resistant Organisms: None Reported Past Surgical History: Appendectomy, Bladder Surgery, Hysterectomy Additional Past Surgical History / Comment(s): bladder suspension, lymph nodes and part of bowel removed with hysterectomy Past Anesthesia/Blood Transfusion Reactions: No Reported Reaction Past Psychological History: No Psychological Hx Reported Past Alcohol Use History: Occasional Past Drug Use History: None Reported - Past Family History Brother(s) Family Medical History: Cancer Mother Family Medical History: Cancer Additional Family Medical History / Comment(s): Bone cancer Father History Unknown: Yes Family Medical History: Cancer Medications and Allergies Home Medications Medication Instructions Recorded Confirmed Type lisinopriL [Prinivil] 20 mg PO DAILY 07/10/19 02/13/23 History Gabapentin 300 mg PO HS 02/13/23 02/13/23 History Mirtazapine 7.5 mg PO HS 02/13/23 02/13/23 History Pantoprazole Sodium [Protonix] 20 mg PO BID 02/13/23 02/13/23 History Rosuvastatin Calcium 5 mg PO HS 02/13/23 02/13/23 History Allergies Allergy/AdvReac Type Severity Reaction Status Date / Time No Known Allergies Allergy Verified 02/13/23 11:53 Physical Exam Vitals: Vital Signs Temp Pulse Pulse Resp BP BP Pulse Ox 02/14/23 04:00 97.6 F 67 16 134/79 99 02/13/23 23:34 97.5 F L 72 16 140/83 99 02/13/23 20:00 97.9 F 76 18 153/94 99 02/13/23 17:15 98.2 F 89 16 163/92 99 02/13/23 14:28 89 02/13/23 11:16 98.0 F 89 16 174/98 97 02/13/23 09:41 96 24 165/102 100 02/13/23 09:24 169/96 Intake and Output 02/13/23 02/14/23 02/14/23 22:59 06:59 14:59 Intake Total 120 Balance 120 Intake: Oral 120 Other: # Voids 2 Weight 61.5 kg Results 02/14/23 07:43 02/14/23 07:43 Cardiac Enzymes 02/13/23 02/13/23 Range/Units 15:15 18:56 Troponin I 0.152 H* 0.131 H* (0.000-0.034) ng/mL Coagulation 02/13/23 02/13/23 Range/Units 11:43 18:56 APTT 43.1 H 52.8 H (22.0-30.0) sec Comprehensive Metabolic Panel 02/13/23 Range/Units 09:00 Creatinine 0.73 (0.52-1.04) mg/dL Current Medications Generic Name Dose Route Start Last Admin Trade Name Ketty PRN Reason Stop Dose Admin Acetaminophen 650 mg 02/13/23 09:27 02/13/23 17:24 Acetaminophen Tab 325 Mg Tab PO 650 mg Q6HR PRN Administration Mild Pain or Fever > 100.5 Atorvastatin Calcium 10 mg 02/13/23 21:00 02/13/23 20:28 Atorvastatin 10 Mg Tab PO 10 mg HS WILIAM Administration Carvedilol 6.25 mg 02/13/23 17:30 02/14/23 05:46 Carvedilol 6.25 Mg Tab PO 6.25 mg BID-W/MEALS WILIAM Administration Furosemide 40 mg 02/14/23 09:00 Furosemide 10 Mg/Ml 4 Ml Vial IV DAILY WILIAM Gabapentin 300 mg 02/13/23 21:00 02/13/23 20:27 Gabapentin 300 Mg Cap PO 300 mg HS WILIAM Administration Heparin Sodium (Porcine) 0 unit 02/13/23 07:58 Heparin Sodium 1,000 Un/Ml (10ml Vl) IV PER PROTOCOL PRN Low PTT Protocol Heparin Sodium/Sodium Chloride 250 mls @ 7.294 mls/hr 02/13/23 08:00 02/13/23 13:32 25,000 unit/ Sodium Chloride IV 14 units/kg/hr .Q24H WILIAM 8.509 mls/hr Titration Protocol 12 UNITS/KG/HR Lisinopril 20 mg 02/14/23 09:00 Lisinopril 20 Mg Tab PO DAILY WILIAM Mirtazapine 7.5 mg 02/13/23 21:00 02/13/23 20:27 Mirtazapine 15 Mg Tab PO 7.5 mg HS WILIAM Administration Miscellaneous Information 1 each 02/13/23 07:25 Magnesium Replacement Protocol 1 Each Misc MISCELLANE DAILY PRN Per Protocol Protocol Naloxone HCl 0.2 mg 02/13/23 09:27 Naloxone 0.4 Mg/Ml 1 Ml Vial IV Q2M PRN Opioid Reversal Pantoprazole Sodium 40 mg 02/13/23 21:00 02/13/23 20:28 Pantoprazole 40 Mg Tablet PO 40 mg BID WILIAM Administration Intake and Output 02/13/23 02/14/23 02/14/23 22:59 06:59 14:59 Intake Total 120 Balance 120 Intake: Oral 120 Other: # Voids 2 Weight 61.5 kg 02/13/23 06:55 02/13/23 09:00
--- NOTE | 2023-02-14 12:10 | P.CONS ---
History of Present Illness - Reason for Consult Consult date: 02/14/23 hx ovarian cancer Requesting physician: Jorje Israle - Chief Complaint SOB - History of Present Illness Patient is a 72 year old female with a significant history of ovarian cancer. She was diagnosed in 2017 and had debulking surgery with Dr Lacey at [facility]. She was treated with adjuvant Carbo + dose dense Taxol. Due to recurrence patient was started on doxil and avastin and s/p cycle [address] Rossi at [facility]. Patient presented to the emergency room for increasing shortness of breath over the last 2 days. Denies cough and fever. She denies chest pain and dizziness. Denies diet changes. Upon presentation chest x-ray revealed background COPD changes with pulmonary vascular congestion and small bilateral pleural effusions. CT chest revealed no evidence of pulmonary embolism. Cardiomegaly with pulmonary vascular congestion, intralobular septal thickening, and moderate bilateral pleural effusions, most consistent with CHF exacerbation. Serial troponins elevated. BNP 22,600. Patient has been started on heparin and Lasix. Cardiology following. Echo ordered. Patient reports she had an echocardiogram 6 weeks ago and [facility] which was normal per patient. patient afebrile. SPO2 97% on 3 L. WBC 4.1, hemoglobin 9.0, platelets 247,000. Review of Systems 10 point ROS is negative except as stated in HPI Past Medical History Past Medical History: Cancer, Diabetes Mellitus, Hypertension, Osteoarthritis (OA) Additional Past Medical History / Comment(s): Hx ovarian CA, constipation, urinary leakage, History of Any Multi-Drug Resistant Organisms: None Reported Past Surgical History: Appendectomy, Bladder Surgery, Hysterectomy Additional Past Surgical History / Comment(s): bladder suspension, lymph nodes and part of bowel removed with hysterectomy Past Anesthesia/Blood Transfusion Reactions: No Reported Reaction Past Psychological History: No Psychological Hx Reported Past Alcohol Use History: Occasional Past Drug Use History: None Reported - Past Family History Brother(s) Family Medical History: Cancer Mother Family Medical History: Cancer Additional Family Medical History / Comment(s): Bone cancer Father History Unknown: Yes Family Medical History: Cancer Medications and Allergies Home Medications Medication Instructions Recorded Confirmed Type lisinopriL [Prinivil] 20 mg PO DAILY 07/10/19 02/13/23 History Gabapentin 300 mg PO HS 02/13/23 02/13/23 History Mirtazapine 7.5 mg PO HS 02/13/23 02/13/23 History Pantoprazole Sodium [Protonix] 20 mg PO BID 02/13/23 02/13/23 History Rosuvastatin Calcium 5 mg PO HS 02/13/23 02/13/23 History Allergies Allergy/AdvReac Type Severity Reaction Status Date / Time No Known Allergies Allergy Verified 02/13/23 11:53 Physical Exam Vitals: Vital Signs Temp Pulse Pulse Resp BP BP Pulse Ox 02/14/23 04:00 97.6 F 67 16 134/79 99 02/13/23 23:34 97.5 F L 72 16 140/83 99 02/13/23 20:00 97.9 F 76 18 153/94 99 02/13/23 17:15 98.2 F 89 16 163/92 99 02/13/23 14:28 89 02/13/23 11:16 98.0 F 89 16 174/98 97 02/13/23 09:41 96 24 165/102 100 02/13/23 09:24 169/96 Intake and Output 02/13/23 02/14/23 02/14/23 22:59 06:59 14:59 Intake Total 120 180 Balance 120 180 Intake: Oral 120 180 Other: # Voids 2 Weight 61.5 kg - Constitutional General appearance: average body habitus, no acute distress - EENT Eyes: anicteric sclerae, EOMI ENT: hearing grossly normal - Respiratory Respiratory: bilateral: rales - Cardiovascular Rhythm: regular Heart sounds: normal: S1, S2 Abnormal Heart Sounds: no systolic murmur, no diastolic murmur, no rub, no S3 Gallop, no S4 Gallop, no click, no other - Gastrointestinal General gastrointestinal: soft, no tenderness - Integumentary Integumentary: no cyanotic, no rash - Neurologic Neurologic: CNII-XII intact - Musculoskeletal Musculoskeletal: strength equal bilaterally - Psychiatric Psychiatric: A&O x's 3 Results CBC & Chem 7: 02/14/23 07:43 02/14/23 07:43 Labs: Abnormal Lab Results - Last 24 Hours (Table) 02/13/23 02/13/23 02/13/23 Range/Units 09:00 11:23 11:43 RBC (3.80-5.40) m/uL Hgb (11.4-16.0) gm/dL Hct (34.0-46.0) % MCV (80.0-100.0) fL RDW (11.5-15.5) % APTT 43.1 H (22.0-30.0) sec POC Glucose (mg/dL) 132 H (70-110) mg/dL Osmolality 264 L (280-301) mosm/kg Troponin I (0.000-0.034) ng/mL 02/13/23 02/13/23 02/13/23 Range/Units 15:15 16:35 18:56 RBC (3.80-5.40) m/uL Hgb (11.4-16.0) gm/dL Hct (34.0-46.0) % MCV (80.0-100.0) fL RDW (11.5-15.5) % APTT 52.8 H (22.0-30.0) sec POC Glucose (mg/dL) 150 H (70-110) mg/dL Osmolality (280-301) mosm/kg Troponin I 0.152 H* (0.000-0.034) ng/mL 02/13/23 02/13/23 02/14/23 Range/Units 18:56 20:13 07:43 RBC 2.63 L (3.80-5.40) m/uL Hgb 9.0 L (11.4-16.0) gm/dL Hct 26.7 L (34.0-46.0) % MCV 101.6 H (80.0-100.0) fL RDW 16.4 H (11.5-15.5) % APTT (22.0-30.0) sec POC Glucose (mg/dL) 117 H (70-110) mg/dL Osmolality (280-301) mosm/kg Troponin I 0.131 H* (0.000-0.034) ng/mL Chest x-ray: report reviewed CT scan - chest: report reviewed Assessment and Plan (1) Ovarian cancer Current Visit: Yes Status: Acute Priority: High Code(s): C56.9 - MALIGNANT NEOPLASM OF UNSPECIFIED OVARY SNOMED Code(s): 731986017 (2) New onset of congestive heart failure Current Visit: Yes Status: Acute Priority: High Code(s): I50.9 - HEART FAILURE, UNSPECIFIED SNOMED Code(s): 91467338 Plan: Ovarian Cancer: -Significant history of ovarian cancer. She was diagnosed in 2017 and had debulking surgery with Dr Lacey at [facility]. She was treated with adjuvant Carbo + dose dense Taxol. Due to recurrence patient was started on doxil and avastin and s/p cycle 1 approx 3 weeks ago, and follows with Dr. Rossi at [facility]. -Doxil has potential for acute cardiotoxicity and heart failure with an incidence of approx 11%, with avastin having low overall risk for CHF. Will gilberto it Echo results and will forward results to Dr. Rossi -Patient will follow-up with primary oncologist upon discharge, who will provide further recommendations for treatment -Counts stable, will continue to monitor CHF: -Upon presentation chest x-ray revealed background COPD changes with pulmonary vascular congestion and small bilateral pleural effusions. CT chest revealed no evidence of pulmonary embolism. Cardiomegaly with pulmonary vascular congestion, intralobular septal thickening, and moderate bilateral pleural effusions, most consistent with CHF exacerbation. -Serial troponins elevated. BNP 22,600. Patient has been started on Lasix. Cardiology following. Echo ordered. Patient reports she had an echocardiogram 6 weeks ago and [facility] which was normal per patient. Denies history of heart failure -Today, breathing is improved. SPO2 97% on 3 L attests: I performed H&P and developed impression and plan of care for patient, discussed with dictator. I agree with dictated note, documented as a scribe
--- NOTE | 2023-02-14 14:57 | P.PN ---
Subjective Progress Note Date: 02/14/23 72-year-old female with PMH of hypertension, GERD, dyslipidemia, history of ovarian cancer currently undergoing chemotherapy at [facility] presents the ED for shortness of breath and lower extremity swelling that has been progressively getting worse over the past 3 days. She reports 2 pillow ort hopnea. Her symptoms are worse with exertion. She denies any chest pain. In the ED, her BP was elevated at 194/115 with heart rate of 100 and O2 saturation of 92% on 2 L nasal cannula. CBC showed hemoglobin of 9.5 with MCV of 102.8. Coagulation panel showed a PTT of 43.1. D-dimer 1.17. CMP showed sodium 124, chloride of 95, bicarb of 18, glucose of 116, osmolality of 264, AST of 49, ALT of 36. BNP was 22,600. TSH 1.17. Cortisol 22. Troponin 0.102. Magnesium 1.5. Urinalysis negative. Chest x-ray showed pulmonary vascular congestion and small bilateral pleural effusion. CTA chest showed no PE, cardiomegaly with pulmonary vascular congestion and moderate bilateral pleural effusions. EKG showed sinus tachycardia with Q waves, ventricular rate of 101. 7/10 Patient was seen and examined. She reports improvement in her LE swelling and breathing. She is currently 94% on RA. CBC shows Hg of 9. BMP shows Na 122, Cl 92, glucose 117. B12 and Folate within normal limits. Troponin flat at 0.152 and 0.131. Echocardiogram pending. General: non toxic, no distress, appears at stated age Derm: warm, dry Head: atraumatic, normocephalic, symmetric Eyes: EOMI, no lid lag, anicteric sclera Cardiovascular: Normal S1 S2, no murmur Lungs: Decreased breath sounds bilateral, rales at the bases, no accessory muscle use Ext: no gross muscle atrophy, no edema, no contractures Neuro: no focal neuro deficits Psych: Alert, oriented, appropriate affect CHF exacerbation Hypertensive urgency Troponin elevation Macrocytic anemia Elevated d-dimer Hyponatremia Hypochloremic metabolic acidosis Hypomagnesemia Transaminitis Chronic conditions: Hypertension, GERD, dyslipidemia, history of ovarian cancer currently undergoing chemotherapy at [facility] in [place] Based on my assessment of this patient, this patient meets a high complexity level of care. Patient has an acute diagnosis of CHF exacerbation that poses a threat to life or bodily function. Currently requiring 3 L nasal cannula to maintain O2 saturation greater than 92%. She also has a troponin elevation of 0.102. Her BP was elevated on admission, 194/115. Troponins are flat and ACS is ruled out. Heparin drip discontinued. Telemetry monitoring. Cardiology consultation. Patient be started on Lasix 40 mg IV daily. Strict intake and output take ordered along with daily weights. Echocardiogram ordered. Continue Coreg 6.25 mg by mouth twice a day. Hyponatremia likely related to volume overload. Hopeful improvement with diuresis. Magnesium replaced as per protocol. LFTs are nonobstructive. Unknown etiology. Oncology consultation. Heparin drip for DVT prophylaxis. FULL CODE. I have reviewed the following color consultant notes: I have reviewed the results of the following tests: CBC, BMP, Troponin. I have ordered the following tests: BMP for tomorrow morning. I have discussed the care of this patient with the following independent historian: Case discussed with the daughter and at bedside. I have independently interpreted the following test below: I have discussed the management of this patient with the following physician: Objective - Vital Signs Vital signs: Vital Signs Temp 97.5 F L 02/14/23 12:00 Pulse 85 02/14/23 13:03 Resp 18 02/14/23 13:03 BP 145/70 02/14/23 12:00 Pulse Ox 94 L 02/14/23 12:00 FiO2 Intake & Output 02/13/23 02/14/23 02/14/23 18:59 06:59 18:59 Intake Total 216.47 120 360 Balance 216.47 120 360 Weight 60.781 kg 61.5 kg Intake: Intake, IV Titration 36.47 Amount Heparin Sod,Pork in 0.45% 36.47 NaCl 25,000 unit In 0.45 % NaCl 1 250ml.bag @ 12 UNITS/KG/HR 7.294 mls/hr IV .Q24H WILIAM Rx#: [id number] Oral 180 120 360 Other: Voiding Method Toilet Toilet # Voids 2 # Bowel Movements 1 - Labs CBC & Chem 7: 02/14/23 07:43 02/14/23 07:43 Labs: Abnormal Lab Results - Last 24 Hours (Table) 02/13/23 02/13/23 02/13/23 Range/Units 15:15 16:35 18:56 RBC (3.80-5.40) m/uL Hgb (11.4-16.0) gm/dL Hct (34.0-46.0) % MCV (80.0-100.0) fL RDW (11.5-15.5) % APTT 52.8 H (22.0-30.0) sec Sodium (137-145) mmol/L Chloride (98-107) mmol/L Glucose (74-99) mg/dL POC Glucose (mg/dL) 150 H (70-110) mg/dL Troponin I 0.152 H* (0.000-0.034) ng/mL 02/13/23 02/13/23 02/14/23 Range/Units 18:56 20:13 07:43 RBC 2.63 L (3.80-5.40) m/uL Hgb 9.0 L (11.4-16.0) gm/dL Hct 26.7 L (34.0-46.0) % MCV 101.6 H (80.0-100.0) fL RDW 16.4 H (11.5-15.5) % APTT (22.0-30.0) sec Sodium (137-145) mmol/L Chloride (98-107) mmol/L Glucose (74-99) mg/dL POC Glucose (mg/dL) 117 H (70-110) mg/dL Troponin I 0.131 H* (0.000-0.034) ng/mL 02/14/23 02/14/23 Range/Units 07:43 11:31 RBC (3.80-5.40) m/uL Hgb (11.4-16.0) gm/dL Hct (34.0-46.0) % MCV (80.0-100.0) fL RDW (11.5-15.5) % APTT (22.0-30.0) sec Sodium 122 L (137-145) mmol/L Chloride 92 L (98-107) mmol/L Glucose 117 H (74-99) mg/dL POC Glucose (mg/dL) 187 H (70-110) mg/dL Troponin I (0.000-0.034) ng/mL
[2023-02-14 16:09] LABS: Glucose,Whole Blood 134 mg/dL (70-110)
--- NOTE | 2023-02-14 17:17 | CA ---
Transthoracic Echo Report Name: Veena Pimentel Age: 72 Gender: F : 1950 Exam Date: 02/14/2023 09:16 Exam Location: [facility] Ht (in): 61 Wt (lb): 135 Ordering Physician: Liam Velasquez Attending/Referring Phys: Hostler Helper Kelsi Oscar [facility] Procedure CPT: Indications: New onset CHF Cardiac Hx: Technical Quality: Fair Contrast 1: Total Dose (mL): Contrast 2: Total Dose (mL): MEASUREMENTS (Male / Female) Normal Values 2D ECHO LV Diastolic Diameter PLAX 5.2 cm 4.2 - 5.9 / 3.9 - 5.3 cm LV Systolic Diameter PLAX 4.4 cm IVS Diastolic Thickness 0.8 cm 0.6 - 1.0 / 0.6 - 0.9 cm LVPW Diastolic Thickness 0.9 cm 0.6 - 1.0 / 0.6 - 0.9 cm LV Relative Wall Thickness 0.3 LVOT Diameter 2.0 cm LV Diastolic Volume MOD BP 83.3 cm??? 67 - 155 / 56 - 104 cm??? LV Systolic Volume MOD BP 58.7 cm??? 22 - 58 / 19 - 49 cm??? LV Ejection Fraction MOD BP 29.5 % >= 55 % LV Cardiac Index MOD BP 1187.3 cm???/min???m??? LV Diastolic Volume MOD 4C 78.7 cm??? LV Systolic Volume MOD 4C 57.0 cm??? LV Ejection Fraction MOD 4C 27.6 % LV Cardiac Index MOD 4C 1049.2 cm???/min???m??? LV Diastolic Length 4C 6.8 cm LV Systolic Length 4C 6.1 cm LV Diastolic Volume MOD 2C 80.6 cm??? LV Systolic Volume MOD 2C 58.7 cm??? LV Ejection Fraction MOD 2C 27.2 % LV Cardiac Index MOD 2C 1057.6 cm???/min???m??? LV Diastolic Length 2C 7.5 cm LV Systolic Length 2C 6.3 cm M-MODE Aortic Root Diameter MM 2.4 cm LA Systolic Diameter MM 3.5 cm LA Ao Ratio MM 1.4 AV Cusp Separation MM 1.6 cm DOPPLER AV Peak Velocity 119.2 cm/s AV Peak Gradient 5.7 mmHg AV Mean Velocity 81.9 cm/s AV Mean Gradient 3.0 mmHg AV Velocity Time Integral 23.2 cm LVOT Peak Velocity 91.3 cm/s LVOT Peak Gradient 3.3 mmHg LVOT Velocity Time Integral 18.3 cm LVOT Stroke Volume 59.0 cm??? LVOT Stroke Volume Index 36.9 ml/m??? LVOT Cardiac Index 2845.4 cm???/min???m??? AV Area Cont Eq vti 2.5 cm??? AV Area Cont Eq pk 2.5 cm??? MV Peak Velocity 107.1 cm/s MV Peak Gradient 4.6 mmHg MV Mean Velocity 83.3 cm/s MV Mean Gradient 2.9 mmHg MV Velocity Time Integral 24.8 cm MR Peak Velocity 558.7 cm/s MR Peak Gradient 124.9 mmHg Mitral E Point Velocity 96.1 cm/s Mitral A Point Velocity 102.0 cm/s Mitral E to A Ratio 0.9 MV Deceleration Time 167.2 ms LV E' Lateral Velocity 4.7 cm/s Mitral E to LV E' Lateral Ratio 20.3 LV E' Septal Velocity 3.2 cm/s Mitral E to LV E' Septal Ratio 30.4 TR Peak Velocity 329.3 cm/s TR Peak Gradient 43.4 mmHg Right Atrial Pressure 15.0 mmHg Pulmonary Artery Systolic Pressu 58.4 mmHg Right Ventricular Systolic Press 58.4 mmHg FINDINGS Left Ventricle Left ventricular wall thickness normal. Mild-moderate left ventricular dilatation. Moderate-severely reduced global left ventricular systolic function. reduced global left ventricular systolic function. Hypokinetic septum. Hypokinetic anterior wall. Hypokinetic inferior wall. Left ventricular ejection fraction is estimated at 25-30%. Right Ventricle Normal right ventricular size and function. Severe pulmonary hypertension. Prominent moderator band in right ventricle (normal variant). Right Atrium Mild right atrial dilatation. Left Atrium Severe left atrial dilatation. Mitral Valve Structurally normal mitral valve. Mitral valve thickened. Gfugyezq-gv-dvuped mitral regurgitation. Aortic Valve Trileaflet aortic valve. Trace aortic regurgitation. Tricuspid Valve Structurally normal tricuspid valve. Mekk-nw-fdgoegul tricuspid regurgitation. Pulmonic Valve Structurally normal pulmonic valve. Wqah-og-rasqllua pulmonic regurgitation. Pericardium Small pericardial effusion. Pleural effusion. Aorta Normal size aortic root. CONCLUSIONS Severe LV systolic dysfunction Severe pulmonary hypertension Moderate to severe mitral regurgitation Previewed by: Dr. Christopher Arenas MD (Electronically Signed) Final Date: 14 February 2023 17:16
[2023-02-14 20:09] LABS: Glucose,Whole Blood 160 mg/dL (70-110)
[2023-02-14] MEDS: GABAPENTIN 300 MG CAP PO SCH (21:56)
[2023-02-14] MEDS: ATORVASTATIN 10 MG TAB PO SCH (21:56)
[2023-02-14] MEDS: MIRTAZAPINE 15 MG TAB PO SCH (21:56)
[2023-02-15 06:05] LABS: Glucose,Whole Blood 96 mg/dL (70-110)
[2023-02-15] MEDS: carvediloL 6.25 MG TAB PO SCH ×2 (06:16→16:55)
[2023-02-15] MEDS: FUROSEMIDE 10 MG/ML 4 ML VIAL IV SCH (08:21)
[2023-02-15] MEDS: PANTOPRAZOLE 40 MG TABLET PO SCH ×2 (08:21→19:42)
[2023-02-15] MEDS: lisinopriL 20 MG TAB PO SCH (08:21)
[2023-02-15] MEDS: SPIRONOLACTONE 25 MG TAB PO SCH (10:29)
[2023-02-15] MEDS: DAPAGLIFLOZIN PROPANEDIOL 10 MG TABLET PO SCH (10:29)
[2023-02-15 10:41] LABS: African American GFR (CKD) 74 (>60 ml/min/1.73 sqM); Anion Gap 10 mmol/L; Blood Urea Nitrogen 18 mg/dL (7-17); Calcium 8.5 mg/dL (8.4-10.2); Carbon Dioxide 23 mmol/L (22-30); Chloride 90 mmol/L (98-107); Glucose 134 mg/dL (74-99); Non-African American GFR(CKD) 64 (>60 ml/min/1.73 sqM); Sodium 123 mmol/L (137-145)
[2023-02-15 10:58] LABS: Potassium 4.6 mmol/L (3.5-5.1)
--- NOTE | 2023-02-15 11:12 | P.PN ---
Subjective Progress Note Date: 02/15/23 Pt is doing well today and reports her breathing is significantly improved. However, she still reports orthopnea. Gen: awake, alert HEENT: normocephalic, atraumatic, good hearing acuity, moist mucous membranes Resp: good air exchange, breathing comfortably with no accessory muscle use CVS: good distal perfusion x 4, GI: soft, NTTP, ND : no SPT, no CVAT, gaitan catheter not present MSK: no pitting edema, no clubbing Neuro: non-focal, moving all extremities Psych: cooperative, euthymic mood Hospital Course: 72-year-old female with PMH of hypertension, GERD, dyslipidemia, history of ovarian cancer currently undergoing chemotherapy at [facility] in [place] presented the ED for shortness of breath and lower extremity swelling that has been progressively getting worse over the prior 3 days. In the ED, her BP was elevated at 194/115 with heart rate of 100 and O2 saturation of 92% on 2 L nasal cannula. CBC showed hemoglobin of 9.5 with MCV of 102.8. Coagulation panel showed a PTT of 43.1. D-dimer 1.17. CMP showed sodium 124, chloride of 95, bicarb of 18, glucose of 116, osmolality of 264, AST of 49, ALT of 36. BNP was 22,600. TSH 1.17. Cortisol 22. Troponin 0.102. Magnesium 1.5. Urinalysis negative. Chest x-ray showed pulmonary vascular congestion and small bilateral pleural effusion. CTA chest showed no PE, cardiomegaly with pulmonary vascular congestion and moderate bilateral pleural effusions. EKG showed sinus tachycardia with Q waves, ventricular rate of 101. She was started on diuretics IV, and reported improvement in her dyspnea. Echo demonstrated significant red uction in EF to 25-30%. 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 Hypertensive urgency Troponin elevation Macrocytic anemia Elevated d-dimer Hyponatremia, hypervolemic Hypochloremic metabolic acidosis Hypomagnesemia Transaminitis Plan: Today, patient is afebrile, 146/81, heart rate 75, 95% on room air Sodium today is 123, up from 122 Discussed the case with cardiology, they're waiting for outpatient records regarding previous echocardiogram done 4 weeks ago, however, they believe this is chemotherapy side effect Consult nephrology for hyponatremia Recommend ongoing diuresis, Lasix 40 mg switched to by mouth by cardiology service Continue Coreg 6.25 mg twice a day Continue lisinopril 20 mg daily Continue Spiriva lactone 25 mg daily Patient was started on dapagliflozin by cardiology service today Patient is full code Objective - Vital Signs Vital signs: Vital Signs Temp 97.9 F 02/15/23 08:18 Pulse 75 02/15/23 08:18 Resp 16 02/15/23 08:18 BP 146/81 02/15/23 08:18 Pulse Ox 95 02/15/23 08:18 FiO2 Intake & Output 02/14/23 02/15/23 02/15/23 18:59 06:59 18:59 Intake Total 360 180 Output Total 400 Balance 360 -220 Weight 60.9 kg Intake: Oral 360 180 Output: Urine 400 Other: Voiding Method Toilet Toilet Toilet # Voids 1 - Labs CBC & Chem 7: 02/14/23 07:43 02/15/23 09:02 Labs: Abnormal Lab Results - Last 24 Hours (Table) 02/14/23 02/14/23 02/14/23 Range/Units 11:31 16:08 20:07 Sodium (137-145) mmol/L Chloride (98-107) mmol/L BUN (7-17) mg/dL Glucose (74-99) mg/dL POC Glucose (mg/dL) 187 H 134 H 160 H (70-110) mg/dL 02/15/23 Range/Units 09:02 Sodium 123 L (137-145) mmol/L Chloride 90 L (98-107) mmol/L BUN 18 H (7-17) mg/dL Glucose 134 H (74-99) mg/dL POC Glucose (mg/dL) (70-110) mg/dL
[2023-02-15 11:38] LABS: Glucose,Whole Blood 120 mg/dL (70-110)
--- NOTE | 2023-02-15 12:10 | P.PN ---
Subjective Progress Note Date: 02/15/23 Principal diagnosis: SOB At today's visit patient is resting comfortably in bed. She reports improvement in her breathing. Denies pain. Echocardiogram reviewed with patient and daughter. Objective - Vital Signs Vital signs: Vital Signs Temp 97.9 F 02/15/23 08:18 Pulse 76 02/15/23 11:29 Resp 15 02/15/23 11:29 BP 157/98 02/15/23 11:29 Pulse Ox 92 L 02/15/23 11:29 FiO2 Intake & Output 02/14/23 02/15/23 02/15/23 18:59 06:59 18:59 Intake Total 360 180 Output Total 400 Balance 360 -220 Weight 60.9 kg Intake: Oral 360 180 Output: Urine 400 Other: Voiding Method Toilet Toilet Toilet # Voids 1 - Constitutional General appearance: Present: average body habitus, no acute distress - EENT Eyes: Present: anicteric sclerae, EOMI ENT: Present: hearing grossly normal - Respiratory Details: breathing is even and unlabored - Cardiovascular Details: skin is warm and dry - Integumentary Integumentary: Absent: cyanotic - Neurologic Neurologic Comment(s): grossly intact - Musculoskeletal Musculoskeletal: Present: strength equal bilaterally - Psychiatric Psychiatric: Present: A&O x's 3, appropriate affect, intact judgment & insight - Labs CBC & Chem 7: 02/14/23 07:43 02/15/23 09:02 Labs: Abnormal Lab Results - Last 24 Hours (Table) 02/14/23 02/14/23 02/15/23 Range/Units 16:08 20:07 09:02 Sodium 123 L (137-145) mmol/L Chloride 90 L (98-107) mmol/L BUN 18 H (7-17) mg/dL Glucose 134 H (74-99) mg/dL POC Glucose (mg/dL) 134 H 160 H (70-110) mg/dL 02/15/23 Range/Units 11:36 Sodium (137-145) mmol/L Chloride (98-107) mmol/L BUN (7-17) mg/dL Glucose (74-99) mg/dL POC Glucose (mg/dL) 120 H (70-110) mg/dL - Imaging and Cardiology echo reviewed Assessment and Plan (1) Ovarian cancer Current Visit: Yes Status: Acute Priority: High Code(s): C56.9 - MALIGNANT NEOPLASM OF UNSPECIFIED OVARY SNOMED Code(s): 709192305 (2) New onset of congestive heart failure Current Visit: Yes Status: Acute Priority: High Code(s): I50.9 - HEART FAILURE, UNSPECIFIED SNOMED Code(s): 79827111 Plan: CHF: -Upon presentation chest x-ray revealed background COPD changes with pulmonary vascular congestion and small bilateral pleural effusions. CT chest revealed no evidence of pulmonary embolism. Cardiomegaly with pulmonary vascular congestion, intralobular septal thickening, and moderate bilateral pleural effusions, most consistent with CHF exacerbation. -Serial troponins elevated. BNP 22,600. Continues on Lasix. Cardiology following. Echo revealed severe LV systolic dysfunction with EF 25-30%. And severe pulmonary hypertension. Echocardiogram from 6 weeks ago requested from her primary oncologist for comparison. Unfortunately, her acute heart failure may be due to Doxil/Avastin. Echocardiogram will be sent to Dr. Rossi. -Defer to cardiology and IM team for management Ovarian Cancer: -Significant history of ovarian cancer. She was diagnosed in 2016 and had debulking surgery with Dr Lacey at [facility]. She was treated with adjuvant Carbo + dose dense Taxol. Due to recurrence patient was started on doxil and avastin and s/p cycle 1 on 01/18/23, and follows with Dr. Rossi at [facility]. -Doxil has potential for acute cardiotoxicity and heart failure with an incidence of approx 11%, with avastin having low overall risk for CHF. Patient has follow-up on with Dr. Rossi. Discussed with patient that she will need to f/u with Dr. Rossi prior to cycle 2, for further recommendations for treatment, as her treatment will likely need to be changed due to her heart failure. Pt and daughters questions were answered to the best of our ability. Recommend close outpt f/u with cardiology -Counts stable, will continue to monitor
--- NOTE | 2023-02-15 12:42 | P.PN ---
Subjective Progress Note Date: 02/15/23 PROGRESS NOTE The patient is a 72-year-old female with a known history of ovarian cancer with recurrence, undergoing chemotherapy who presented with symptoms of CHF. According to her she had an echocardiogram 4-6 weeks ago that was reported to be normal. She's feeling much better today. She denies any chest discomfort, dizziness or palpitations. Her breathing is better. She denies any nausea or vomiting. She is in sinus mechanism. She had an echocardiogram that showed an ejection fraction of 25-30% with severe pulmonary hypertension with moderate to severe mitral and [id number] tricuspid regurgitation. Medications: Lipitor 10 mg daily, Coreg 6.25 mg twice a day, Lasix 40 mg IV daily, lisinopril 20 mg daily, PHYSICAL EXAMINATION: Blood pressure 146/80 heart rate 70 LUNGS: Clear to auscultation HEART: Regular rate and rhythm, S1, S2. No S3. Holosystolic murmur ABDOMEN: Soft, nontender, no organomegaly EXTREMETIES: No edema LAB: Sodium 123, BUN 18, creatinine 0.9 IMPRESSION: 1. Acute CHF with impaired systolic function, new. Secondary to her chemotherapy 2. History for ovarian cancer 3. History of hyperlipidemia 4. Pulmonary hypertension, probably related to the heart failure PLAN: 1. Add Aldactone 2. Changed to oral diuretics 3. Add Farxiga 10 mg daily 4. Follow her renal functions 5. Depending on her progress the dose of her beta dave will be adjusted and she will be changed to Entresto. 6. Close follow-up of left ventricular systolic function as outpatient Objective - Vital Signs Vital signs: Vital Signs Temp 97.9 F 02/15/23 08:18 Pulse 76 02/15/23 11:29 Resp 15 02/15/23 11:29 BP 157/98 02/15/23 11:29 Pulse Ox 92 L 02/15/23 11:29 FiO2 Intake & Output 02/14/23 02/15/23 02/15/23 18:59 06:59 18:59 Intake Total 360 180 Output Total 400 Balance 360 -220 Weight 60.9 kg Intake: Oral 360 180 Output: Urine 400 Other: Voiding Method Toilet Toilet Toilet # Voids 1 - Labs CBC & Chem 7: 02/14/23 07:43 02/15/23 09:02 Labs: Abnormal Lab Results - Last 24 Hours (Table) 02/14/23 02/14/23 02/15/23 Range/Units 16:08 20:07 09:02 Sodium 123 L (137-145) mmol/L Chloride 90 L (98-107) mmol/L BUN 18 H (7-17) mg/dL Glucose 134 H (74-99) mg/dL POC Glucose (mg/dL) 134 H 160 H (70-110) mg/dL 02/15/23 Range/Units 11:36 Sodium (137-145) mmol/L Chloride (98-107) mmol/L BUN (7-17) mg/dL Glucose (74-99) mg/dL POC Glucose (mg/dL) 120 H (70-110) mg/dL
--- NOTE | 2023-02-15 15:20 | P.NPCON ---
History of Present Illness - Reason for Consult hyponatremia - History of Present Illness Reason for consultation: Hyponatremia History of present illness: Patient is a 72-year-old female seen in consultation for hyponatremia. Patient came to the hospital with worsening shortness of breath. Patient states after diuresis she feels better. She is currently on room air. She has no edema in the lower extremities at this time. Patient's sodium level was 124 on admission and is 123 today. She admits to good urine output. No hematuria. No vomiting or diarrhea. Oral intake has been good. She does admit to drinking quite a bit of fluids. Patient also has history of ovarian cancer and is maintained on chemotherapy outpatient. She denies chest pain or shortness of breath at this time. Urine osmolality is noted to be 222. UA is completely benign. She denies regular use of nonsteroidals. She denies family history of renal disease. No history of diabetes. No fever or chills. Denies history of coronary artery disease. Echocardiogram done this admission showed ejection fraction of 25-30% with moderate to severe mitral regurgitation, mild to moderate pulmonic and tricuspid regurgitation and severe pulmonary hypertension. GFR is at baseline. Creatinine 0.9 today. She did receive IV contrast on 02/13/2023 for a CTA which showed pulmonary vascular congestion and no PE. IV diuretics were discontinued and she was changed to oral Lasix today. She is also on spironolactone. Vital signs are stable. General: No acute distress. HEENT: Head exam is unremarkable. LUNGS: No audible rhonchi or wheezes. HEART: Rate and Rhythm are regular. ABDOMEN: Nontender. EXTREMITITES: No edema. Past Medical History Past Medical History: Cancer, Diabetes Mellitus, Hypertension, Osteoarthritis (OA) Additional Past Medical History / Comment(s): Hx ovarian CA, constipation, urinary leakage, History of Any Multi-Drug Resistant Organisms: None Reported Past Surgical History: Appendectomy, Bladder Surgery, Hysterectomy Additional Past Surgical History / Comment(s): bladder suspension, lymph nodes and part of bowel removed with hysterectomy Past Anesthesia/Blood Transfusion Reactions: No Reported Reaction Past Psychological History: No Psychological Hx Reported Past Alcohol Use History: Occasional Past Drug Use History: None Reported - Past Family History Brother(s) Family Medical History: Cancer Mother Family Medical History: Cancer Additional Family Medical History / Comment(s): Bone cancer Father History Unknown: Yes Family Medical History: Cancer Medications and Allergies Home Medications Medication Instructions Recorded Confirmed Type lisinopriL [Prinivil] 20 mg PO DAILY 07/10/19 02/13/23 History Gabapentin 300 mg PO HS 02/13/23 02/13/23 History Mirtazapine 7.5 mg PO HS 02/13/23 02/13/23 History Pantoprazole Sodium [Protonix] 20 mg PO BID 02/13/23 02/13/23 History Rosuvastatin Calcium 5 mg PO HS 02/13/23 02/13/23 History Allergies Allergy/AdvReac Type Severity Reaction Status Date / Time No Known Allergies Allergy Verified 02/13/23 11:53 Physical Exam Vitals: Vital Signs Temp Pulse Resp BP Pulse Ox 02/15/23 11:29 76 15 157/98 92 L 02/15/23 08:18 97.9 F 75 16 146/81 95 02/15/23 04:00 74 18 153/80 94 L 02/15/23 01:56 80 18 02/15/23 00:00 80 18 145/72 92 L 02/14/23 20:00 81 18 155/84 91 L 02/14/23 16:00 97.6 F 87 18 157/81 93 L Intake and Output 02/15/23 02/15/23 02/15/23 06:59 14:59 22:59 Intake Total 360 Output Total 400 Balance -40 Intake: Oral 360 Output: Urine 400 Other: Voiding Method Toilet Toilet # Voids 1 Weight 60.9 kg Results - Lab Results Most recent lab results Calcium 8.5 mg/dL (8.4-10.2) 02/15/23 09:02 Magnesium 1.9 mg/dL (1.6-2.3) 02/14/23 07:43 02/14/23 07:43 02/15/23 09:02 Assessment and Plan Plan: Assessment: 1. Hyponatremia from excessive fluid intake. Also concern for SIADH from underlying malignancy. Currently appears euvolemic. Sodium level 123 today. TSH and cortisol normal. Urine osmolality to 222. 2. acute on chronic systolic CHF with ejection fraction of 25-30% with moderate to severe mitral regurgitation, mild to moderate tricuspid and pulmonic regurgitation. 3. Severe pulmonary hypertension. 4. Ovarian cancer maintain and chemotherapy. Oncology following. 5. Anemia. Rule out iron deficiency. Plan: Maintain oral Lasix. Add 1200 mL fluid restriction. Encourage oral intake. Avoid nephrotoxins. Continue to monitor renal function and urine output. Check iron studies. Check urine sodium level. Thank you for the consultation. I will continue to follow the patient with you during her hospital stay.
[2023-02-15 16:39] LABS: Glucose,Whole Blood 112 mg/dL (70-110)
[2023-02-15] MEDS: MIRTAZAPINE 15 MG TAB PO SCH (19:27)
[2023-02-15] MEDS: GABAPENTIN 300 MG CAP PO SCH (19:41)
[2023-02-15] MEDS: ATORVASTATIN 10 MG TAB PO SCH (19:42)
[2023-02-15 20:06] LABS: Glucose,Whole Blood 191 mg/dL (70-110)
[2023-02-15 22:49] LABS: % Iron Saturation 15.15 (12.00-45.00)
[2023-02-16 06:16] LABS: Glucose,Whole Blood 121 mg/dL (70-110)
[2023-02-16] MEDS: carvediloL 6.25 MG TAB PO SCH ×2 (06:37→17:46)
[2023-02-16 08:24] LABS: African American GFR (CKD) 62 (>60 ml/min/1.73 sqM); Anion Gap 7 mmol/L; Blood Urea Nitrogen 21 mg/dL (7-17); Calcium 8.7 mg/dL (8.4-10.2); Carbon Dioxide 26 mmol/L (22-30); Chloride 90 mmol/L (98-107); Glucose 157 mg/dL (74-99); Non-African American GFR(CKD) 54 (>60 ml/min/1.73 sqM); Sodium 123 mmol/L (137-145)
[2023-02-16] MEDS: PANTOPRAZOLE 40 MG TABLET PO SCH ×2 (08:29→20:29)
[2023-02-16] MEDS: FUROSEMIDE 40 MG TAB PO SCH (08:29)
[2023-02-16] MEDS: DAPAGLIFLOZIN PROPANEDIOL 10 MG TABLET PO SCH (08:29)
[2023-02-16] MEDS: lisinopriL 20 MG TAB PO SCH (08:29)
[2023-02-16] MEDS: SPIRONOLACTONE 25 MG TAB PO SCH (08:29)
[2023-02-16 08:55] LABS: NT-Pro-B-Type Natriuretic Pept 42900 pg/mL
--- NOTE | 2023-02-16 11:10 | P.PN ---
Subjective Progress Note Date: 02/16/23 Pt is doing well today and reports her breathing is significantly improved. Orthopnea has improved as well. Gen: awake, alert HEENT: normocephalic, atraumatic, good hearing acuity, moist mucous membranes Resp: good air exchange, breathing comfortably with no accessory muscle use CVS: good distal perfusion x 4, GI: soft, NTTP, ND : no SPT, no CVAT, gaitan catheter not present MSK: no pitting edema, no clubbing Neuro: non-focal, moving all extremities Psych: cooperative, euthymic mood Hospital Course: 72-year-old female with PMH of hypertension, GERD, dyslipidemia, history of ovarian cancer currently undergoing chemotherapy at [facility] in [place] presented the ED for shortness of breath and lower extremity swelling that has been progressively getting worse over the prior 3 days. In the ED, her BP was elevated at 194/115 with heart rate of 100 and O2 saturation of 92% on 2 L nasal cannula. CBC showed hemoglobin of 9.5 with MCV of 102.8. Coagulation panel showed a PTT of 43.1. D-dimer 1.17. CMP showed sodium 124, chloride of 95, bicarb of 18, glucose of 116, osmolality of 264, AST of 49, ALT of 36. BNP was 22,600. TSH 1.17. Cortisol 22. Troponin 0.102. Magnesium 1.5. Urinalysis negative. Chest x-ray showed pulmonary vascular congestion and small bilateral pleural effusion. CTA chest showed no PE, cardiomegaly with pulmonary vascular congestion and moderate bilateral pleural effusions. EKG showed sinus tachycardia with Q waves, ventricular rate of 101. She was started on diuretics IV, and reported improvement in her dyspnea. Echo demonstrated significant reduction in EF to 25-30%. 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, will continue fluid restriction Talked to daughter who reports that patient's Na has always been low while getting chemo - last known check prior to hospitalization was 128 Consideration of tolvaptan per nephrology Recommend ongoing diuresis, Lasix 40 mg switched to by mouth by cardiology service Continue Coreg 6.25 mg twice a day Continue lisinopril 20 mg daily Continue Spiriva lactone 25 mg daily Continue dapagliflozin Patient is full code Objective - Vital Signs Vital signs: Vital Signs Temp 97.9 F 02/15/23 08:18 Pulse 79 02/16/23 08:26 Resp 17 02/16/23 08:40 BP 152/79 02/16/23 08:26 Pulse Ox 93 L 02/16/23 08:26 FiO2 Intake & Output 02/15/23 02/16/23 02/16/23 18:59 06:59 18:59 Intake Total 540 598 Output Total 950 700 100 Balance -410 -700 498 Weight 60.1 kg Intake: Oral 540 598 Output: Urine 950 700 100 Other: Voiding Method Toilet Toilet Toilet # Voids 1 1 - Labs CBC & Chem 7: 02/14/23 07:43 02/16/23 07:52 Labs: Abnormal Lab Results - Last 24 Hours (Table) 02/15/23 02/15/23 02/15/23 Range/Units 09:00 11:36 16:37 Sodium (137-145) mmol/L Chloride (98-107) mmol/L BUN (7-17) mg/dL Creatinine (0.52-1.04) mg/dL Glucose (74-99) mg/dL POC Glucose (mg/dL) 120 H 112 H (70-110) mg/dL Ferritin 803.0 H (10.0-291.0) ng/mL 02/15/23 02/16/23 02/16/23 Range/Units 20:05 06:14 07:52 Sodium 123 L (137-145) mmol/L Chloride 90 L (98-107) mmol/L BUN 21 H (7-17) mg/dL Creatinine 1.06 H (0.52-1.04) mg/dL Glucose 157 H (74-99) mg/dL POC Glucose (mg/dL) 191 H 121 H (70-110) mg/dL Ferritin (10.0-291.0) ng/mL
[2023-02-16 11:25] LABS: Glucose,Whole Blood 139 mg/dL (70-110)
--- NOTE | 2023-02-16 12:02 | P.PN ---
Subjective Progress Note Date: 02/16/23 Principal diagnosis: SOB At today's visit patient is resting comfortably in bed. She reports continued improvement in her breathing. Denies pain. Echocardiogram reviewed with p jonas and daughter. Objective - Vital Signs Vital signs: Vital Signs Temp 97.9 F 02/15/23 08:18 Pulse 83 02/16/23 11:41 Resp 15 02/16/23 11:41 BP 135/78 02/16/23 11:41 Pulse Ox 96 02/16/23 11:41 FiO2 Intake & Output 02/15/23 02/16/23 02/16/23 18:59 06:59 18:59 Intake Total 540 598 Output Total 950 700 100 Balance -410 -700 498 Weight 60.1 kg Intake: Oral 540 598 Output: Urine 950 700 100 Other: Voiding Method Toilet Toilet Toilet # Voids 1 1 - Constitutional General appearance: Present: average body habitus, no acute distress - EENT Eyes: Present: anicteric sclerae, EOMI ENT: Present: hearing grossly normal - Respiratory Details: breathing even and unlabored - Cardiovascular Details: skin warm and dry - Integumentary Integumentary: Absent: cyanotic - Neurologic Neurologic: Present: CNII-XII intact - Musculoskeletal Musculoskeletal: Present: strength equal bilaterally - Psychiatric Psychiatric: Present: A&O x's 3, appropriate affect, intact judgment & insight - Labs CBC & Chem 7: 02/14/23 07:43 02/16/23 07:52 Labs: Abnormal Lab Results - Last 24 Hours (Table) 02/15/23 02/15/23 02/15/23 Range/Units 09:00 16:37 20:05 Sodium (137-145) mmol/L Chloride (98-107) mmol/L BUN (7-17) mg/dL Creatinine (0.52-1.04) mg/dL Glucose (74-99) mg/dL POC Glucose (mg/dL) 112 H 191 H (70-110) mg/dL Ferritin 803.0 H (10.0-291.0) ng/mL 02/16/23 02/16/23 02/16/23 Range/Units 06:14 07:52 11:23 Sodium 123 L (137-145) mmol/L Chloride 90 L (98-107) mmol/L BUN 21 H (7-17) mg/dL Creatinine 1.06 H (0.52-1.04) mg/dL Glucose 157 H (74-99) mg/dL POC Glucose (mg/dL) 121 H 139 H (70-110) mg/dL Ferritin (10.0-291.0) ng/mL - Imaging and Cardiology echocardiogram reviewed Assessment and Plan (1) Ovarian cancer Current Visit: Yes Status: Acute Priority: High Code(s): C56.9 - MALIGNANT NEOPLASM OF UNSPECIFIED OVARY SNOMED Code(s): 162853537 (2) New onset of congestive heart failure Current Visit: Yes Status: Acute Priority: High Code(s): I50.9 - HEART FAILURE, UNSPECIFIED SNOMED Code(s): 44727520 Plan: CHF: -Upon presentation chest x-ray revealed background COPD changes with pulmonary vascular congestion and small bilateral pleural effusions. CT chest revealed no evidence of pulmonary embolism. Cardiomegaly with pulmonary vascular congestio n, intralobular septal thickening, and moderate bilateral pleural effusions, most consistent with CHF exacerbation. -Serial troponins elevated. BNP 22,600. Continues on Lasix. Cardiology following. Echo revealed severe LV systolic dysfunction with EF 25-30%. And severe pulmonary hypertension. Echocardiogram from 12/30/22 showed EF 55-60%. Unfortunately, her acute heart failure may be due to Doxil/Avastin. Echocardiogram will be sent to Dr. Rossi. -Defer to cardiology and IM team for management Ovarian Cancer: -Significant history of ovarian cancer. She was diagnosed in 2017 and had debulking surgery with Dr Lacey at [facility]. She was treated with adjuvant Carbo + dose dense Taxol. Due to recurrence patient was started on doxil and avastin and s/p cycle 1 on 01/18/23, and follows with Dr. Rossi at [facility]. -Doxil has potential for acute cardiotoxicity and heart failure with an incidence of approx 11%, with avastin having low overall risk for CHF. Patient has follow-up on with Dr. Rossi. Discussed with patient that she will need to f/u with Dr. Rossi prior to cycle 2, for further recommendations for treatment, as her treatment will likely need to be changed due to her heart failure. Pt and daughters questions were answered to the best of our ability. Re commend close outpt f/u with cardiology -Counts stable, will continue to monitor attests: I performed H&P and developed impression and plan of care for patient, discussed with dictator. I agree with dictated note, documented as a scribe
--- NOTE | 2023-02-16 13:12 | P.PN ---
Subjective Progress Note Date: 02/16/23 PROGRESS NOTE The patient is a 72-year-old female with a known history of ovarian cancer with recurrence, undergoing chemotherapy who presented with symptoms of CHF. According to her she had an echocardiogram 4-6 weeks ago that was reported to be normal. She's feeling much better today. She denies any chest discomfort, dizziness or palpitations. Her breathing is better. She denies any nausea or vomiting. She is in sinus mechanism. She had an echocardiogram that showed an ejection fraction of 25-30% with severe pulmonary hypertension with moderate to severe mitral and [id number] tricuspid regurgitation. February 16: The patient feels better today, she denies any chest discomfort, dizziness or palpitations. She is ambulating without difficulties. She continues to be in sinus mechanism. There is no evidence of fluid overload. Medications: Lipitor 10 mg daily, Coreg 6.25 mg twice a day, Lasix 40 mg by mouth daily, lisinopril 20 mg daily, Aldactone 25 mg daily, Farxiga 10 mg daily PHYSICAL EXAMINATION: Blood pressure 135/70 heart rate 80 LUNGS: Clear to auscultation HEART: Regular rate and rhythm, S1, S2. No S3. Holosystolic murmur ABDOMEN: Soft, nontender, no organomegaly EXTREMETIES: No edema LAB: Sodium 123, BUN 21, creatinine 1.06, NT proBNP 42,900 IMPRESSION: 1. Acute CHF with impaired systolic function, new. Secondary to her chemotherapy 2. History for ovarian cancer 3. History of hyperlipidemia 4. Pulmonary hypertension, probably related to the heart failure PLAN: 1. Increase beta dave 2. Change to oral diuretics 3. Increase physical activity 4. If stable probable discharge home soon and follow-up as an outpatient, if stable change lisinopril to Entresto 5. Follow-up with primary oncologist 6. Plan discussed with the patient and her daughter Objective - Vital Signs Vital signs: Vital Signs Temp 97.9 F 02/15/23 08:18 Pulse 83 02/16/23 11:41 Resp 15 02/16/23 11:41 BP 135/78 02/16/23 11:41 Pulse Ox 96 02/16/23 11:41 FiO2 Intake & Output 02/15/23 02/16/23 02/16/23 18:59 06:59 18:59 Intake Total 540 598 Output Total 950 700 100 Balance -410 -700 498 Weight 60.1 kg Intake: Oral 540 598 Output: Urine 950 700 100 Other: Voiding Method Toilet Toilet Toilet # Voids 1 1 - Labs CBC & Chem 7: 02/14/23 07:43 02/16/23 07:52 Labs: Abnormal Lab Results - Last 24 Hours (Table) 02/15/23 02/15/23 02/15/23 Range/Units 09:00 16:37 20:05 Sodium (137-145) mmol/L Chloride (98-107) mmol/L BUN (7-17) mg/dL Creatinine (0.52-1.04) mg/dL Glucose (74-99) mg/dL POC Glucose (mg/dL) 112 H 191 H (70-110) mg/dL Ferritin 803.0 H (10.0-291.0) ng/mL 02/16/23 02/16/23 02/16/23 Range/Units 06:14 07:52 11:23 Sodium 123 L (137-145) mmol/L Chloride 90 L (98-107) mmol/L BUN 21 H (7-17) mg/dL Creatinine 1.06 H (0.52-1.04) mg/dL Glucose 157 H (74-99) mg/dL POC Glucose (mg/dL) 121 H 139 H (70-110) mg/dL Ferritin (10.0-291.0) ng/mL
[2023-02-16] MEDS ORDERED: TOLVAPTAN 15 MG TABLET PO ONE (14:00)
--- NOTE | 2023-02-16 14:12 | P.PN ---
Subjective Patient is seen in follow-up for hyponatremia. Sodium level stable. On oral Lasix. Has been voiding. No edema. No chest pain or shortness of breath. Vital signs are stable. General: No acute distress. HEENT: Head exam is unremarkable. LUNGS: No acute distress. HEART: Rate and Rhythm are regular. ABDOMEN: Nontender. EXTREMITITES: No edema. Objective - Vital Signs Vital signs: Vital Signs Temp 97.9 F 02/15/23 08:18 Pulse 83 02/16/23 11:41 Resp 15 02/16/23 11:41 BP 135/78 02/16/23 11:41 Pulse Ox 96 02/16/23 11:41 FiO2 Intake & Output 02/15/23 02/16/23 02/16/23 18:59 06:59 18:59 Intake Total 540 598 Output Total 950 700 100 Balance -410 -700 498 Weight 60.1 kg Intake: Oral 540 598 Output: Urine 950 700 100 Other: Voiding Method Toilet Toilet Toilet # Voids 1 1 - Labs CBC & Chem 7: 02/14/23 07:43 02/16/23 07:52 Labs: Abnormal Lab Results - Last 24 Hours (Table) 02/15/23 02/15/23 02/15/23 Range/Units 09:00 16:37 20:05 Sodium (137-145) mmol/L Chloride (98-107) mmol/L BUN (7-17) mg/dL Creatinine (0.52-1.04) mg/dL Glucose (74-99) mg/dL POC Glucose (mg/dL) 112 H 191 H (70-110) mg/dL Ferritin 803.0 H (10.0-291.0) ng/mL 02/16/23 02/16/23 02/16/23 Range/Units 06:14 07:52 11:23 Sodium 123 L (137-145) mmol/L Chloride 90 L (98-107) mmol/L BUN 21 H (7-17) mg/dL Creatinine 1.06 H (0.52-1.04) mg/dL Glucose 157 H (74-99) mg/dL POC Glucose (mg/dL) 121 H 139 H (70-110) mg/dL Ferritin (10.0-291.0) ng/mL Assessment and Plan Plan: Assessment: 1. Hyponatremia from excessive fluid intake. Also concern for SIADH from underlying malignancy. Currently appears euvolemic. Sodium level stable at 123 today. TSH and cortisol normal. Urine osmolality to 222. Urine sodium 68. 2. Acute on chronic systolic CHF with ejection fraction of 25-30% with moderate to severe mitral regurgitation, mild to moderate tricuspid and pulmonic regurgitation. 3. Severe pulmonary hypertension. 4. Ovarian cancer maintain and chemotherapy. Oncology following. 5. Anemia. Iron deficiency noted. Plan: Maintain oral Lasix. Maintain 1200 mL fluid restriction. Samsca 15 mg once now. Add IV iron. Encourage oral intake. Avoid nephrotoxins. Continue to monitor renal function and urine output.
[2023-02-16] MEDS: SODIUM FERRIC GLUCONAT-SUCROSE 125 MG in SODIUM CHLORIDE 0.9% 100 ML IVPB SCH (15:24)
[2023-02-16 16:11] LABS: Glucose,Whole Blood 151 mg/dL (70-110)
[2023-02-16 19:13] LABS: African American GFR (CKD) 56 (>60 ml/min/1.73 sqM); Anion Gap 11 mmol/L; Blood Urea Nitrogen 24 mg/dL (7-17); Calcium 8.9 mg/dL (8.4-10.2); Carbon Dioxide 23 mmol/L (22-30); Chloride 91 mmol/L (98-107); Glucose 156 mg/dL (74-99); Non-African American GFR(CKD) 48 (>60 ml/min/1.73 sqM); Potassium 4.2 mmol/L (3.5-5.1); Sodium 125 mmol/L (137-145)
[2023-02-16 20:12] LABS: Glucose,Whole Blood 142 mg/dL (70-110)
[2023-02-16] MEDS: ATORVASTATIN 10 MG TAB PO SCH (20:29)
[2023-02-16] MEDS: GABAPENTIN 300 MG CAP PO SCH (20:29)
[2023-02-16] MEDS: MIRTAZAPINE 15 MG TAB PO SCH (20:29)
[2023-02-17 06:21] LABS: Glucose,Whole Blood 96 mg/dL (70-110)
[2023-02-17] MEDS: carvediloL 6.25 MG TAB PO SCH (06:35)
[2023-02-17 08:22] LABS: African American GFR (CKD) 50 (>60 ml/min/1.73 sqM); Anion Gap 6 mmol/L; Blood Urea Nitrogen 22 mg/dL (7-17); Calcium 9.1 mg/dL (8.4-10.2); Carbon Dioxide 31 mmol/L (22-30); Chloride 95 mmol/L (98-107); Glucose 93 mg/dL (74-99); Non-African American GFR(CKD) 43 (>60 ml/min/1.73 sqM); Potassium 4.3 mmol/L (3.5-5.1); Sodium 132 mmol/L (137-145)
[2023-02-17 08:24] VITALS: TEMP 97.5
[2023-02-17] MEDS: FUROSEMIDE 40 MG TAB PO SCH (08:24)
[2023-02-17] MEDS: SPIRONOLACTONE 25 MG TAB PO SCH (08:24)
[2023-02-17] MEDS: DAPAGLIFLOZIN PROPANEDIOL 10 MG TABLET PO SCH (08:24)
[2023-02-17] MEDS: PANTOPRAZOLE 40 MG TABLET PO SCH (08:24)
[2023-02-17] MEDS: lisinopriL 20 MG TAB PO SCH (08:25)
[2023-02-17] MEDS: SODIUM FERRIC GLUCONAT-SUCROSE 125 MG in SODIUM CHLORIDE 0.9% 100 ML IVPB SCH (08:55)
--- NOTE | 2023-02-17 10:49 | P.DS ---
Providers Date of admission: 02/13/23 09:59 Expected date of discharge: 02/17/23 Attending physician: Jorje Israel MD Consults: 02/13/23 09:27 Consult Physician Routine Consulting Provider: Riley Barcenas Consult Reason/Comments: new onset CHF, NSTEMI Do you want consulting provider notified?: Yes, Notify in am 02/13/23 15:01 Consult Physician Routine Consulting Provider: Milo Traylor Consult Reason/Comments: ovarian CA chemo at [facility] Do you want consulting provider notified?: Yes 02/15/23 11:06 Consult Physician Routine Consulting Provider: Rl Lucia Consult Reason/Comments: hyponatremia, hypervolemic Do you want consulting provider notified?: Yes Primary care physician: Eliseo Carrera MD Hospital Course: 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 Hypertensive urgency Troponin elevation Macrocytic anemia Elevated d-dimer Hyponatremia, SIADH Hypochloremic metabolic acidosis Hypomagnesemia Transaminitis Hospital Course: 72-year-old female with PMH of hypertension, GERD, dyslipidemia, history of ovarian cancer currently undergoing chemotherapy at [facility] in [place] presented the ED for shortness of breath and lower extremity swelling that has been progressively getting worse over the prior 3 days. In the ED, her BP was elevated at 194/115 with heart rate of 100 and O2 saturation of 92% on 2 L nasal cannula. CBC showed hemoglobin of 9.5 with MCV of 102.8. Coagulation panel showed a PTT of 43.1. D-dimer 1.17. CMP showed sodium 124, chloride of 95, bicarb of 18, glucose of 116, osmolality of 264, AST of 49, ALT of 36. BNP was 22,600. TSH 1.17. Cortisol 22. Troponin 0.102. Magnesium 1.5. Urinalysis negative. Chest x-ray showed pulmonary vascular congestion and small bilateral pleural effusion. CTA chest showed no PE, cardiomegaly with pulmonary vascular congestion and moderate bilateral pleural effusions. EKG showed sinus tachycard ia with Q waves, ventricular rate of 101. She was started on diuretics IV, and reported improvement in her dyspnea. Echo demonstrated significant reduction in EF to 25-30%. Patient was started on goal-directed medical therapy for systolic heart failure including beta dave, TASHA inhibitor, spironolactone, dapagliflozin. Was seen and cleared by cardiology and oncology. On discharge, patient's lisinopril was exchanged to entresto. Patient did have hyponatremia which was initially mildly improved with diuretics, but noted to have a component of SIADH, received tolvaptan in consultation with nephrology, and this improved to 132 by discharge. I spent 40 minutes coordinating this discharge on 02/17 Gen: awake, alert HEENT: normocephalic, atraumatic, good hearing acuity, moist mucous membranes Resp: good air exchange, breathing comfortably with no accessory muscle use CVS: good distal perfusion x 4, GI: soft, NTTP, ND : no SPT, no CVAT, gaitan catheter not present MSK: no pitting edema, no clubbing Neuro: non-focal, moving all extremities Psych: cooperative, euthymic mood Patient Condition at Discharge: Good Plan - Discharge Summary Discharge Rx Participant: No New Discharge Prescriptions: New Spironolactone [Aldactone] 25 mg PO DAILY #30 tab carvediloL [Coreg] 12.5 mg PO BID-W/MEALS #120 tab Furosemide [Lasix] 20 mg PO DAILY #30 tab Sacubitril/Valsartan [Entresto 49 mg-51 mg Tablet] 1 each PO BID #60 tablet Dapagliflozin Propanediol [Farxiga] 10 mg PO DAILY #30 tab Continue Rosuvastatin Calcium 5 mg PO HS Mirtazapine 7.5 mg PO HS Pantoprazole Sodium [Protonix] 20 mg PO BID Gabapentin 300 mg PO HS Discontinued lisinopriL [Prinivil] 20 mg PO DAILY Discharge Medication List Gabapentin 300 mg PO HS 02/13/23 [History] Mirtazapine 7.5 mg PO HS 02/13/23 [History] Pantoprazole Sodium [Protonix] 20 mg PO BID 02/13/23 [History] Rosuvastatin Calcium 5 mg PO HS 02/13/23 [History] Dapagliflozin Propanediol [Farxiga] 10 mg PO DAILY #30 tab 02/17/23 [Rx] Furosemide [Lasix] 20 mg PO DAILY #30 tab 02/17/23 [Rx] Sacubitril/Valsartan [Entresto 49 mg-51 mg Tablet] 1 each PO BID #60 tablet 02/17/23 [Rx] Spironolactone [Aldactone] 25 mg PO DAILY #30 tab 02/17/23 [Rx] carvediloL [Coreg] 12.5 mg PO BID-W/MEALS #120 tab 02/17/23 [Rx] Follow up Appointment(s)/Referral(s): Jaylin Chen MD [STAFF PHYSICIAN] - 1 Week Eliseo Carrera MD [Primary Care Provider] - 1-2 days Discharge Disposition: HOME SELF-CARE
--- NOTE | 2023-02-17 11:50 | P.PN ---
Subjective HISTORY OF PRESENT ILLNESS: This is a 72-year-old female with a past medical history significant for hypertension, hyperlipidemia, and ovarian cancer currently undergoing chemotherapy in [place]. 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 We have been asked to see the patient in consultation for congestive heart failure. Patient examined at the bedside. Patients daughter present time of examination. Patient presented to the hospital for chief complaint of shortness of breath. Patient states her shortness of breath started on and progressively got worse. Patient was found to have congestive heart failure. Patient was started on IV Lasix. The patient denies having any chest pain or pressure. * EKG reveals sinus tachycardia without signs of acute ischemia * Chest xray background COPD changes with pulmonary vascular congestion and small bilateral pleural effusions * Laboratory data: WBC 4.1. Hemoglobin 9.0. Platelet count 247. Sodium 122. Potassium 4.2. BUN 16. Creatinine 0.85. Troponin 0.102. 0.152. 0.131. ProBNP 22,600. * Current home cardiac medications include lisinopril 20 mg daily and Crestor 5 mg at night 02/17/2023 Patient examined this morning at the bedside. Patient denies chest pain or pressure. She denies shortness of breath. She has been transitioned to oral diuretics. PHYSICAL EXAM: VITAL SIGNS: Reviewed. GENERAL: Well-developed in no acute distress. HEENT: Head is normocephalic. Pupils are equal, round. Sclerae anicteric. Mucous membranes of the mouth are moist. Neck supple. No JVD or thyromegaly LUNGS: Respirations even and unlabored. Lungs clear to auscultation bilaterally HEART: Regular rate and rhythm. S1 and S2 heard. Soft systolic murmur. ABDOMEN: Soft. Nondistended. Nontender. EXTREMITIES: Normal range of motion. No clubbing or cyanosis. Peripheral pulses intact. No lower extremity edema NEUROLOGIC: Awake and alert. Oriented x 3. ASSESSMENT: Shortness of breath Acute heart failure with reduced EF, likely secondary to her chemotherapy as echocardiogram was normal prior to beginning chemo Abnormal troponins, flat, suspect secondary to above Hypertension Hyperlipidemia Ovarian cancer, currently undergoing chemotherapy PLAN: Continue current cardiac medications Will likely transition from lisinopril to entrust on an outpatient basis Patient is stable for discharge home today from a cardiac standpoint She is to follow up on an outpatient basis with Dr. Chen Patient to follow up with her primary oncologist for reevaluation of her chemotherapy regimen Nurse practitioner note has been reviewed by physician. Signing provider agrees with the documented findings, assessment, and plan of care. Objective - Vital Signs Vital signs: Vital Signs Temp 97.5 F L 02/17/23 08:23 Pulse 71 02/17/23 10:07 Resp 16 02/17/23 10:07 BP 119/63 02/17/23 08:23 Pulse Ox 99 02/17/23 09:39 FiO2 Intake & Output 02/16/23 02/17/23 02/17/23 18:59 06:59 18:59 Intake Total 838 960 100 Output Total 900 1500 400 Balance -62 -540 -300 Intake: Intake, IV Titration 100 Amount Sodium Ferric Gluconat- 100 Sucrose 125 mg In Sodium Chloride 0.9% 100 ml @ 100 mls/hr IVPB DAILY [facility] Rx#:[id number] Oral 838 960 Output: Urine 900 1500 400 Other: Voiding Method Toilet Toilet Toilet # Voids 1 # Bowel Movements 1 - Labs CBC & Chem 7: 02/14/23 07:43 02/17/23 07:11 Labs: Abnormal Lab Results - Last 24 Hours (Table) 02/16/23 02/16/23 02/16/23 Range/Units 16:09 18:17 20:09 Sodium 125 L (137-145) mmol/L Chloride 91 L (98-107) mmol/L Carbon Dioxide (22-30) mmol/L BUN 24 H (7-17) mg/dL Creatinine 1.15 H (0.52-1.04) mg/dL Glucose 156 H (74-99) mg/dL POC Glucose (mg/dL) 151 H 142 H (70-110) mg/dL 02/17/23 Range/Units 07:11 Sodium 132 L (137-145) mmol/L Chloride 95 L (98-107) mmol/L Carbon Dioxide 31 H (22-30) mmol/L BUN 22 H (7-17) mg/dL Creatinine 1.26 H (0.52-1.04) mg/dL Glucose (74-99) mg/dL POC Glucose (mg/dL) (70-110) mg/dL
[2023-02-17 12:00] LABS: Glucose,Whole Blood 163 mg/dL (70-110)
[2023-02-17 12:11] VITALS: BP 147/78; PULSE 72; RESP 18
--- NOTE | 2023-02-17 12:12 | P.PN ---
Subjective Patient is seen in follow-up for hyponatremia. Sodium level improved. On oral Lasix. Has been voiding. No edema. No chest pain or shortness of breath. Renal function fairly stable. Vital signs are stable. General: No acute distress. HEENT: Head exam is unremarkable. LUNGS: No acute distress. HEART: Rate and Rhythm are regular. ABDOMEN: Nontender. EXTREMITITES: No edema. Objective - Vital Signs Vital signs: Vital Signs Temp 97.5 F L 02/17/23 08:23 Pulse 71 02/17/23 10:07 Resp 16 02/17/23 10:07 BP 119/63 02/17/23 08:23 Pulse Ox 99 02/17/23 09:39 FiO2 Intake & Output 02/16/23 02/17/23 02/17/23 18:59 06:59 18:59 Intake Total 838 960 100 Output Total 900 1500 400 Balance -62 -540 -300 Intake: Intake, IV Titration 100 Amount Sodium Ferric Gluconat- 100 Sucrose 125 mg In Sodium Chloride 0.9% 100 ml @ 100 mls/hr IVPB DAILY [facility] Rx#:[id number] Oral 838 960 Output: Urine 900 1500 400 Other: Voiding Method Toilet Toilet Toilet # Voids 1 # Bowel Movements 1 - Labs CBC & Chem 7: 02/14/23 07:43 02/17/23 07:11 Labs: Abnormal Lab Results - Last 24 Hours (Table) 02/16/23 02/16/23 02/16/23 Range/Units 16:09 18:17 20:09 Sodium 125 L (137-145) mmol/L Chloride 91 L (98-107) mmol/L Carbon Dioxide (22-30) mmol/L BUN 24 H (7-17) mg/dL Creatinine 1.15 H (0.52-1.04) mg/dL Glucose 156 H (74-99) mg/dL POC Glucose (mg/dL) 151 H 142 H (70-110) mg/dL 02/17/23 02/17/23 Range/Units 07:11 11:58 Sodium 132 L (137-145) mmol/L Chloride 95 L (98-107) mmol/L Carbon Dioxide 31 H (22-30) mmol/L BUN 22 H (7-17) mg/dL Creatinine 1.26 H (0.52-1.04) mg/dL Glucose (74-99) mg/dL POC Glucose (mg/dL) 163 H (70-110) mg/dL Assessment and Plan Plan: Assessment: 1. Hyponatremia from excessive fluid intake. Also concern for SIADH from underlying malignancy. Currently appears euvolemic. Sodium level 132today. TSH and cortisol normal. Urine osmolality to 222. Urine sodium 68. 2. Acute on chronic systolic CHF with ejection fraction of 25-30% with moderate to severe mitral regurgitation, mild to moderate tricuspid and pulmonic regurgitation. 3. Severe pulmonary hypertension. 4. Ovarian cancer maintain and chemotherapy. Oncology following. 5. Anemia. Iron deficiency noted. Plan: Maintain oral Lasix. Maintain 1200 mL fluid restriction. Status post samsca given 02/16/2023. Maintain IV iron. Encourage oral intake. Avoid nephrotoxins. Continue to monitor renal function and urine output. Repeat BMP and magnesium level in 2-3 days postdischarge and follow up outpatient in 1 week.
[2023-02-18] MEDS ORDERED: FUROSEMIDE 20 MG TAB PO SCH (09:00)
== END 2023-02-17 13:49 | disposition home or self-care (01) | DRG 291 ==
LOC: EC 06:26 → 3SCARD 09:59
PROVIDERS: ADMIT Family Medicine; ATTEND Family Medicine
DX: I11.0 Hypertensive heart disease with heart failure (principal); I50.23 Acute on chronic systolic (congestive) heart failure; E22.2 Syndrome of inappropriate secretion of antidiuretic hormone; C56.9 Malignant neoplasm of unspecified ovary; E87.8 Other disorders of electrolyte and fluid balance, not elsewhere classified; I08.1 Rheumatic disorders of both mitral and tricuspid valves; I16.0 Hypertensive urgency; I27.20 Pulmonary hypertension, unspecified; I42.7 Cardiomyopathy due to drug and external agent; J44.9 Chronic obstructive pulmonary disease, unspecified; K21.9 Gastro-esophageal reflux disease without esophagitis; T45.1X5A Adverse effect of antineoplastic and immunosuppressive drugs, initial encounter; E83.42 Hypomagnesemia; E78.5 Hyperlipidemia, unspecified; D50.9 Iron deficiency anemia, unspecified; D53.9 Nutritional anemia, unspecified; Z79.899 Other long term (current) drug therapy; Z90.710 Acquired absence of both cervix and uterus
CPT/HCPCS: 36415; 71046; 71275; 80048; 80053; 81003; 82533; 82575; 82607; 82728; 82746; 83540; 83550; 83605; 83735; 83880; 83930; 83935; 84300; 84443; 84484; 85025; 85379; 85610; 85730; 93005; 93306; 94760; 96374; 96375; 99291

== ENCOUNTER → 2023-02-21 | Outpatient (CLI) | payer MEDICARE ==
[2023-02-21 12:21] LABS: BUN/Creat Ratio 23.36 Ratio (12.00-20.00); Blood Urea Nitrogen 32.7 mg/dL (9.0-27.0); Calcium 10.3 mg/dL (8.7-10.3); Carbon Dioxide 23.4 mmol/L (21.6-31.8); Chloride 97 mmol/L (96-109); Glucose 112 mg/dL (70-110); Magnesium 2.1 mg/dL (1.5-2.4); Potassium 5.2 mmol/L (3.5-5.5); Sodium 135 mmol/L (135-145)
== END | disposition home or self-care (01) ==
LOC: LABWHC1 07:08
PROVIDERS: ATTEND Internal Medicine
DX: Z01.812 Encounter for preprocedural laboratory examination (principal); E83.42 Hypomagnesemia; E87.8 Other disorders of electrolyte and fluid balance, not elsewhere classified
CPT/HCPCS: 36415; 80048; 83735

== ENCOUNTER → 2023-03-16 | Outpatient (CLI) | payer MEDICARE | END | disposition home or self-care (01) | LOC: LABWHC1 07:15 | PROVIDERS: ATTEND Internal Medicine Interventional Cardiology | DX: I50.9 Heart failure, unspecified (principal); E78.2 Mixed hyperlipidemia; R73.01 Impaired fasting glucose ==

== ENCOUNTER → 2023-06-07 | Outpatient (CLI) | payer MEDICARE ==
[2023-06-07 09:41] LABS: Potassium 5.5 mmol/L (3.5-5.1)
[2023-06-07 09:44] LABS: African American GFR (CKD) 81 (>60 ml/min/1.73 sqM); Anion Gap 11 mmol/L; Blood Urea Nitrogen 34 mg/dL (7-17); Calcium 9.4 mg/dL (8.4-10.2); Carbon Dioxide 22 mmol/L (22-30); Chloride 103 mmol/L (98-107); Glucose 157 mg/dL (74-99); Magnesium 1.6 mg/dL (1.6-2.3); Non-African American GFR(CKD) 71 (>60 ml/min/1.73 sqM); Sodium 136 mmol/L (137-145)
[2023-06-07 20:08] LABS: Appearance,Urine Cloudy (Clear); Bilirubin,Urine Negative (Negative); Blood,Urine Moderate (Negative); Color,Urine Yellow (Yellow); Ketones,Urine Negative (Negative); Nitrite,Urine Negative (Negative); Specific Gravity,Urine 1.019 (1.001-1.030)
[2023-06-07 21:14] LABS: Bacteria,Urine 3+ (None Seen)
== END | disposition home or self-care (01) ==
LOC: LABWHC1 08:36
PROVIDERS: ATTEND Internal Medicine
DX: E87.1 Hypo-osmolality and hyponatremia (principal)
CPT/HCPCS: 36415; 80048; 81001; 82306; 83735; 83930; 83935; 84100; 84300

== ENCOUNTER → 2023-06-10 | Outpatient (CLI) | payer MEDICARE ==
--- NOTE | 2023-06-10 11:32 | US ---
EXAMINATION TYPE: US carotid duplex BILAT DATE OF EXAM: 06/10/2023 COMPARISON: NONE CLINICAL INDICATION: Female, 72 years old with history of R09.89 OTH SYMPTOMS AND SIGNS INVOLVING THE CIRC A; HTN controlled with meds. Patient states having ringing in her ears. Chemo treatments. TECHNIQUE: Carotid duplex ultrasound examination. Indirect Doppler criteria was utilized. FINDINGS: EXAM MEASUREMENTS: RIGHT: Peak Systolic Velocity (PSV) cm/sec ----- Right CCA: 49.6 ----- Right ICA: 112.1 ----- Right ECA: 73.5 ICA/CCA ratio: 2.3 RIGHT: End Diastole cm/sec ----- Right CCA: 11.3 ----- Right ICA: 47.4 ----- Right ECA: 0.0 LEFT: Peak Systolic Velocity (PSV) cm/sec ----- Left CCA: 72.1 ----- Left ICA: 121.0 ----- Left ECA: 84.5 ICA/CCA ratio: 1.7 LEFT: End Diastole cm/sec ----- Left CCA: 19.3 ----- Left ICA: 43.4 ----- Left ECA: 0.0 VERTEBRALS (direction of flow): Right Vertebral: Antegrade Left Vertebral: Antegrade Rhythm: Normal [employer] NOTES: Bilateral wall thickening. Plaque seen in right bulb. No elevated velocities. R ight significant stenosis. IMPRESSION: 1. Intimal thickening and atheromatous plaquing present without significant flow-limiting stenosis. Criteria for Assigning % of Stenosis / Diameter reduction (Estimation based on the indirect measurements of the internal carotid artery velocities (ICA PSV). 1. Normal (no stenosis)=ICA PSV < 125 cm/s: ratio < 2.0: ICA EDV<40 cm/s. 2. Less than 50% stenosis=ICA PSV < 125 cm/s: ratio < 2.0: ICA EDV<40 cm/s. 3. 50 to 69% stenosis=ICA PSV of 125 to 230 cm/s: ration 2.0 ? 4.0: ICA EDV 40-100 cm/s. 4. Greater than 70% stenosis to near occlusion= ICA PSV > 230 cm/s: ratio > 4.0: ICA EDV > 100 cm/s. 5. Near occlusion= ICA PSV velocities may be low or undetectable: variable ratio and ICA EDV. 6. Total occlusion=unable to detect flow.
== END ==
LOC: RADUSWWP 10:47
PROVIDERS: ATTEND Internal Medicine
DX: I67.2 Cerebral atherosclerosis (principal); I10 Essential (primary) hypertension; I77.89 Other specified disorders of arteries and arterioles; R09.89 Other specified symptoms and signs involving the circulatory and respiratory systems
CPT/HCPCS: 93880

== ENCOUNTER 2023-07-02 11:51 | Inpatient (IN) | payer MEDICARE ==
--- NOTE | 2023-07-02 12:19 | ED ---
Recheck HPI - General Source: patient, RN notes reviewed Mode of arrival: ambulatory Limitations: no limitations <Carito Ellis - Last Filed: 07/02/23 12:19> <Sultana Edmond - Last Filed: 07/02/23 23:47> - General Chief Complaint: Recheck/Abnormal Lab/Rx Stated Complaint: nose bleed Time Seen by Provider: 07/02/23 12:17 - History of Present Illness Initial Comments: patient is a 72-year-old female presented ER chief complaint of nosebleeds. Patient has been having a nosebleed for 3 days. Patient denies blood thinner use patient is on chemo last treatment about 2 weeks ago. Patient has any fevers, chills or shortness of breath. (Carito Ellis) 72-year-old female with past history of ovarian cancer on chemotherapy who presents to the emergency department reporting nosebleed for the past 3 days. States that she has had slight oozing from the right nostril for 3 days area denies digital trauma or oxygen use. She does not take any blood thinners. She is on chemotherapy through the [facility] for her ovarian cancer. Last treatment was 14 days ago. Her next upcoming treatment is on . States that since April she has had issues with her blood counts. She has required multiple transfusions of blood products. She denies any chest pain or shortness of breath. No fevers. No headaches or visual changes. Denies any abdominal pain. No recent trauma. No bleeding from any other site. No other alleviating, precipitating or modifying factors (Sultana Edmond) - Related Data Home Medications Medication Instructions Recorded Confirmed Gabapentin 300 mg PO DAILY PRN 02/13/23 07/02/23 Pantoprazole Sodium [Protonix] 20 mg PO BID 02/13/23 07/02/23 Rosuvastatin Calcium 5 mg PO DAILY 02/13/23 07/02/23 ALPRAZolam [Xanax] 0.25 mg PO Q8H PRN 07/02/23 07/02/23 Aspirin EC [Ecotrin Low Dose] 81 mg PO DAILY 07/02/23 07/02/23 Iron 142mg (45fe) Tablet 1 tab PO DAILY 07/02/23 07/02/23 Magnesium Oxide [Mag-Ox] 400 mg PO DAILY 07/02/23 07/02/23 Sacubitril/Valsartan [Entresto 49 1 tab PO BID 07/02/23 07/02/23 mg-51 mg Tablet] Spironolactone [Aldactone] 12.5 mg PO DAILY 07/02/23 07/02/23 carvediloL [Coreg] 6.25 mg PO BID-W/MEALS 07/02/23 07/02/23 Previous Rx's Medication Instructions Recorded Dapagliflozin Propanediol [Farxiga] 10 mg PO DAILY #30 tab 02/17/23 Allergies Allergy/AdvReac Type Severity Reaction Status Date / Time No Known Allergies Allergy Verified 07/02/23 17:48 Review of Systems ROS Other: All systems not noted in ROS Statement are negative. <Carito Ellis - Last Filed: 07/02/23 12:19> ROS Other: All systems not noted in ROS Statement are negative. <Sultana Edmond - Last Filed: 07/02/23 23:47> ROS Statement: Those systems with pertinent positive or pertinent negative responses have been documented in the HPI. Past Medical History Past Medical History: Cancer, Diabetes Mellitus, Hypertension, Osteoarthritis (OA) Additional Past Medical History / Comment(s): Hx ovarian CA, constipation, urinary leakage, anemia History of Any Multi-Drug Resistant Organisms: None Reported Past Surgical History: Appendectomy, Bladder Surgery, Hysterectomy Additional Past Surgical History / Comment(s): bladder suspension, lymph nodes and part of bowel removed with hysterectomy Past Anesthesia/Blood Transfusion Reactions: No Reported Reaction Past Psychological History: No Psychological Hx Reported Smoking Status: Former smoker Past Alcohol Use History: Occasional Past Drug Use History: None Reported - Past Family History Brother(s) Family Medical History: Cancer Mother Family Medical History: Cancer Additional Family Medical History / Comment(s): Bone cancer Father History Unknown: Yes Family Medical History: Cancer <Carito Ellis - Last Filed: 07/02/23 12:19> General Exam Limitations: no limitations <Carito Ellis - Last Filed: 07/02/23 12:19> General appearance: alert, in no apparent distress Head exam: Present: atraumatic, normocephalic, normal inspection Eye exam: Present: normal appearance, PERRL, EOMI. Absent: scleral icterus, conjunctival injection, periorbital swelling ENT exam: Present: mucous membranes moist, other (Dried blood left naree, slight pink oozing of blood from right nare. Nasal mucosa appears abraded) Neck exam: Present: normal inspection. Absent: tenderness, meningismus, lymphadenopathy Respiratory exam: Present: normal lung sounds bilaterally. Absent: respiratory distress, wheezes, rales, rhonchi, stridor Cardiovascular Exam: Present: regular rate, normal rhythm, normal heart sounds. Absent: systolic murmur, diastolic murmur, rubs, gallop, clicks GI/Abdominal exam: Present: soft, normal bowel sounds. Absent: distended, tenderness, guarding, rebound, rigid Extremities exam: Present: normal inspection, full ROM, normal capillary refill. Absent: tenderness, pedal edema, joint swelling, calf tenderness Back exam: Present: normal inspection Neurological exam: Present: alert, oriented X3, CN II-XII intact Psychiatric exam: Present: normal affect, normal mood Skin exam: Present: warm, dry, intact, normal color. Absent: rash <Sultana Edmond - Last Filed: 07/02/23 23:47> - General Exam Comments Initial Comments: Visual Physical Exam Vital signs reviewed General: Well-appearing, nontoxic, no acute distress. Head: Normocephalic, atraumatic Eyes: PERRLA, EOMI ENT: Airway patent Chest: Nonlabored breathing Skin: No visual rash, normal skin tone Neuro: Alert and oriented 3 Musculoskeletal: No gross abnormalities (Carito Ellis) Course Vital Signs 07/02/23 07/02/23 07/02/23 12:03 18:08 21:30 Temperature 98.3 F 97.9 F Pulse Rate 77 80 88 Respiratory 20 22 18 Rate Blood Pressure 120/62 122/68 112/70 O2 Sat by Pulse 99 Oximetry 07/02/23 23:27 Temperature 99.5 F Pulse Rate 79 Respiratory 18 Rate Blood Pressure 105/64 O2 Sat by Pulse 95 Oximetry Medical Decision Making <Carito Ellis - Last Filed: 07/02/23 12:19> - Lab Data Result diagrams: 07/02/23 15:49 07/02/23 15:49 <Sultana Edmond - Last Filed: 07/02/23 23:47> - Medical Decision Making I performed the quick note portion of the exam. Electronically signed by Carito Ellis PA-C (Carito Ellis) Was pt. sent in by a medical professional or institution ([facility] Cheema, SILK [employer], urgent care, hospital, or group home...) When possible be specific @ -No Did you speak to anyone other than the patient for history (EMS, parent, family, police, friend...)? What history was obtained from this source @ -I spoke with the patient's daughter for history Did you review nursing and triage notes (agree or disagree)? Why? @ -I reviewed and agree with nursing and triage notes Were old charts reviewed (outside hosp., previous admission, EMS record, old EKG, old radiological studies, urgent care reports/EKG's, group home records)? Report findings @ -No old charts were reviewed Differential Diagnosis (chest pain, altered mental status, abdominal pain women, abdominal pain men, vaginal bleeding, weakness, fever, dyspnea, syncope, headache, dizziness, GI bleed, back pain, seizure, CVA, palpatations, mental health, musculoskeletal)? @ -Anterior epistaxis, posterior epistaxis, thrombocytopenia, DIC EKG interpreted by me (3pts min.). @ -Not done X-rays interpreted by me (1pt min.). @ -None done CT interpreted by me (1pt min.). @ -None done U/S interpreted by me (1pt. min.). @ -None done What testing was considered but not performed or refused? (CT, X-rays, U/S, labs)? Why? @ -None What meds were considered but not given or refused? Why? @ -None Did you discuss the management of the patient with other professionals (pr ofessionals i.e. LAYNE Cheema, SILK WORKER, lab, RT, psych nurse, rn social services, roll operator, teacher, information technology officer, case management assistant)? Give summary @ -Spoke with Dean hannon [facility], [place] who will admit the patient Was smoking cessation discussed for >3mins.? @ -No Was critical care preformed (if so, how long)? @ -Yes, 40 minutes for transfusion of blood products Were there social determinants of health that impacted care today? How? (Homelessness, low income, unemployed, alcoholism, drug addiction, transporta tion, low edu. Level, literacy, decrease access to med. care, assisted, rehab)? @ -No Was there de-escalation of care discussed even if they declined (Discuss DNR or withdrawal of care, Hospice)? DNR status @ -No What co-morbidities impacted this encounter? (DM, HTN, Smoking, COPD, CAD, Cancer, CVA, ARF, Chemo, Hep., AIDS, mental health diagnosis, sleep apnea, morbid obesity)? @ -Ovarian cancer on chemotherapy Was patient admitted / discharged? Hospital course, mention meds given and r oute, prescriptions, significant lab abnormalities, going to OR and other pertinent info. @ -Knitted. Upon arrival patient was placed into room 12. Her port was accessed. Laboratory studies were conducted. Patient has some epistaxis noted bilaterally. Left nare has dried blood. Right nare has slight oozing. I did instill 500 mg of TX a on a cotton ball and this was placed in the patient's right nare. Laboratory studies are reviewed. Platelets are 2. Hemoglobin is 6.3. I did order one pack of platelets and one unit of PRBC. Inform the patient that she will require admission due to critically low platelets for which she understood. Spoke with Dean mckee who was agreeable to admit the patient. Patient's nare is not packed at this time due to concern for trauma with worsening bleed because of low platelets. Bleeding is minor at this time. Patient agreeable to the plan and is awaiting a bed on the floor in stable condition Undiagnosed new problem with uncertain prognosis? @ -No Drug Therapy requiring intensive monitoring for toxicity (Heparin, Nitro, Insulin, Cardizem)? @ -No Were any procedures done? @ -No Diagnosis/symptom? @ -Acute bilateral epistaxis, chemo-induced pancytopenia Acute, or Chronic, or Acute on Chronic? @ -Acute Uncomplicated (without systemic symptoms) or Complicated (systemic symptoms)? @ -Complicated Side effects of treatment? @ -No Exacerbation, Progression, or Severe Exacerbation? @ -No Poses a threat to life or bodily function? How? (Chest pain, USA, MT, pneumonia, PE, COPD, DKA, ARF, appy, cholecystitis, CVA, Diverticulitis, Homicidal, Suicidal, threat to staff... and all critical care pts) @ -Yes patient has critically low platelets which can lead to spontaneous blee ding (Damer,Sultana A) - Lab Data Lab Results 07/02/23 07/02/23 07/02/23 Range/Units 15:49 15:49 15:49 WBC 9.9 (3.8-10.6) k/uL RBC 1.99 L (3.80-5.40) m/uL Hgb 6.3 L* (11.4-16.0) gm/dL Hct 18.4 L* (34.0-46.0) % MCV 92.4 (80.0-100.0) fL MCH 31.6 (25.0-35.0) pg MCHC 34.3 (31.0-37.0) g/dL RDW 18.2 H (11.5-15.5) % Plt Count 2 L* (150-450) k/uL MPV 8.5 Neutrophils % (Manual) 48 % Lymphocytes % (Manual) 21 % Monocytes % (Manual) 31 % Eosinophils % (Manual) 1 % Neutrophils # (Manual) 4.75 (1.3-7.7) k/uL Lymphocytes # (Manual) 2.08 (1.0-4.8) k/uL Monocytes # (Manual) 3.07 H (0-1.0) k/uL Eosinophils # (Manual) 0.10 (0-0.7) k/uL Nucleated RBCs 0 (0-0) /100 WBC Manual Slide Review Performed Poikilocytosis (manual Present Anisocytosis Slight Macrocytosis Slight Crenated Cell Present Fragmented RBCs Present PT 11.1 (10.0-12.5) sec INR 1.0 (<1.2) APTT 19.3 L (22.0-30.0) sec Sodium 130 L (137-145) mmol/L Potassium 4.5 (3.5-5.1) mmol/L Chloride 102 (98-107) mmol/L Carbon Dioxide 19 L (22-30) mmol/L Anion Gap 9 mmol/L BUN 23 H (7-17) mg/dL Creatinine 0.76 (0.52-1.04) mg/dL Est GFR (CKD-EPI)AfAm >90 (>60 ml/min/1.73 sqM) Est GFR (CKD-EPI)NonAf 80 (>60 ml/min/1.73 sqM) Glucose 65 L (74-99) mg/dL Calcium 8.8 (8.4-10.2) mg/dL Total Bilirubin 0.4 (0.2-1.3) mg/dL AST 23 (14-36) U/L ALT 21 (4-34) U/L Alkaline Phosphatase 65 (38-126) U/L Total Protein 6.0 L (6.3-8.2) g/dL Albumin 3.4 L (3.5-5.0) g/dL Blood Type Blood Type Confirm Blood Type Recheck Bld Type Recheck Status Antibody Screen Crossmatch Spec Expiration Date 07/02/23 07/02/23 Range/Units 15:49 15:50 WBC (3.8-10.6) k/uL RBC (3.80-5.40) m/uL Hgb (11.4-16.0) gm/dL Hct (34.0-46.0) % MCV (80.0-100.0) fL MCH (25.0-35.0) pg MCHC (31.0-37.0) g/dL RDW (11.5-15.5) % Plt Count (150-450) k/uL MPV Neutrophils % (Manual) % Lymphocytes % (Manual) % Monocytes % (Manual) % Eosinophils % (Manual) % Neutrophils # (Manual) (1.3-7.7) k/uL Lymphocytes # (Manual) (1.0-4.8) k/uL Monocytes # (Manual) (0-1.0) k/uL Eosinophils # (Manual) (0-0.7) k/uL Nucleated RBCs (0-0) /100 WBC Manual Slide Review Poikilocytosis (manual Anisocytosis Macrocytosis Crenated Cell Fragmented RBCs PT (10.0-12.5) sec INR (<1.2) APTT (22.0-30.0) sec Sodium (137-145) mmol/L Potassium (3.5-5.1) mmol/L Chloride (98-107) mmol/L Carbon Dioxide (22-30) mmol/L Anion Gap mmol/L BUN (7-17) mg/dL Creatinine (0.52-1.04) mg/dL Est GFR (CKD-EPI)AfAm (>60 ml/min/1.73 sqM) Est GFR (CKD-EPI)NonAf (>60 ml/min/1.73 sqM) Glucose (74-99) mg/dL Calcium (8.4-10.2) mg/dL Total Bilirubin (0.2-1.3) mg/dL AST (14-36) U/L ALT (4-34) U/L Alkaline Phosphatase (38-126) U/L Total Protein (6.3-8.2) g/dL Albumin (3.5-5.0) g/dL Blood Type B Positive Blood Type Confirm B Positive Blood Type Recheck No Previous Record Bld Type Recheck Status CABO Indicated Antibody Screen NEGATIVE Crossmatch See Detail Spec Expiration Date 07/05/2023 - 2350 Disposition <Carito Ellis - Last Filed: 07/02/23 12:19> Is patient prescribed a controlled substance at d/c from ED?: No Time of Disposition: 17:31 Decision to Admit Reason: Admit from EC Decision Date: 07/02/23 Decision Time: 17:31 <Sultana Edmond - Last Filed: 07/02/23 23:47> Clinical Impression: Epistaxis, Pancytopenia, Ovarian cancer, Antineoplastic chemotherapy induced pancytopenia Disposition: ADMITTED IP TO THIS HOSP Condition: Serious
[2023-07-02] MEDS ORDERED: TRANEXAMIC ACID 1,000 MG/10 ML VIAL MISCELLANE ONE (14:57)
[2023-07-02 16:13] LABS: Anisocytosis Slight; MCH 31.6 pg (25.0-35.0); MCHC 34.3 g/dL (31.0-37.0); MCV 92.4 fL (80.0-100.0); Macrocytosis Slight; Mean Platelet Volume 8.5; RBC 1.99 m/uL (3.80-5.40); RDW 18.2 % (11.5-15.5); WBC 9.9 k/uL (3.8-10.6)
[2023-07-02 16:29] LABS: ALT 21 U/L (4-34); AST 23 U/L (14-36); African American GFR (CKD) >90 (>60 ml/min/1.73 sqM); Albumin 3.4 g/dL (3.5-5.0); Alkaline Phosphatase 65 U/L (38-126); Anion Gap 9 mmol/L; Blood Urea Nitrogen 23 mg/dL (7-17); Calcium 8.8 mg/dL (8.4-10.2); Carbon Dioxide 19 mmol/L (22-30); Chloride 102 mmol/L (98-107); Glucose 65 mg/dL (74-99); Non-African American GFR(CKD) 80 (>60 ml/min/1.73 sqM); Potassium 4.5 mmol/L (3.5-5.1); Sodium 130 mmol/L (137-145); Total Bilirubin 0.4 mg/dL (0.2-1.3)
[2023-07-02 16:32] LABS: Prothrombin Time 11.1 sec (10.0-12.5)
[2023-07-02 16:41] LABS: Partial Thromboplastin Time 19.3 sec (22.0-30.0)
[2023-07-02 16:44] LABS: HCT 18.4 % (34.0-46.0); HGB 6.3 gm/dL (11.4-16.0)
[2023-07-02 16:56] LABS: Platelet Count 2 k/uL (150-450)
[2023-07-02 17:00] LABS: Lymphocytes # (M) 2.08 k/uL (1.0-4.8); Monocytes # (M) 3.07 k/uL (0-1.0); Neutrophils # (M) 4.75 k/uL (1.3-7.7); Neutrophils % (M) 48 %; Nucleated Red Blood Cells 0 /100 WBC (0-0); Total Cells Counted 200
[2023-07-02 17:03] LABS: Poikilocytosis (M) Present; RBC Fragments Present
[2023-07-02 17:04] LABS: Crenated RBC Present
[2023-07-02] MEDS ORDERED: NALOXONE 0.4 MG/ML 1 ML VIAL IV PRN (17:31)
[2023-07-02] MEDS ORDERED: DEXTROSE 50% SYRINGE 50 ML IVP PRN ×4 (17:44→20:57)
[2023-07-02] MEDS ORDERED: ALPRAZolam 0.25 MG TAB PO PRN (20:53)
[2023-07-02] MEDS ORDERED: ACETAMINOPHEN TAB 325 MG TAB PO PRN (21:00)
--- NOTE | 2023-07-02 21:11 | P.HPIM ---
History of Present Illness H&P Date: 07/02/23 Chief Complaint: Refractory nosebleed 72-year-old female with recurrent ovarian cancer over the past 6 years on chemotherapy last dose was 2 weeks ago She is presenting today with 3 day history of refractory nosebleeds has been getting worse she denies any nose injury denies any history of bleeding denies any bleeding from other sources. She is not on any blood thinners she does take aspirin daily Patient last chemotherapy dose was 2 weeks ago she is due for another dose this week on . She was recently hospitalized and discharged for acute CHF exacerbation back in February. Otherwise she denies any upper respiratory infection symptoms denies any chest pain trouble breathing dizziness lightheadedness palpitations denies any abdominal pain nausea vomiting changes in bowel or urinary habits denies any GI bleeding or vaginal bleeding. Denies any tobacco smoking illicit drugs or heavy alcohol Past medical history Congestive heart failure systolic with left ventricle ejection fraction 2530 percent. Diabetes mellitus, ovarian cancer since 2017 with multiple relapses status post surgical hysterectomy and bilateral oophorectomy and lymph node dissection. History of hyponatremia secondary to SIADH, GERD hypertension Review of systems Pertinent positives as noted in HPI. All other systems were reviewed and are negative on exam Constitutional: No acute distress, conversant, pleasant Eyes: Anicteric sclerae, moist conjunctiva, Pupils equal round reactive to light ENMT: NC/AT Oropharynx clear, recurrent nosebleed no signs of trauma bruising cuts or wounds on the on or around the nose Neck: Supple, no masses, or JVD No carotid bruits No thyromegaly Lungs: Clear to auscultation Clear to percussion Normal respiratory effort, no accessory muscle use Cardiovascular: Heart regular in rate and rhythm, No murmurs, gallops, or rubs No peripheral edema Abdominal: Soft Nontender, no guarding, rebound or rigidity Abdomen moving with respiration Normoactive bowel sounds No hepatomegaly, No splenomegaly No palpable mass No abdominal wall hernia noted Extremities: No digital cyanosis No clubbing Pedal pulses intact and symmetrical Radial pulses intact and symmetrical No calf tenderness Psychiatric: Alert and oriented to person, place and time Appropriate affect fair judgement Neuro Muscles Strength 5/5 in all 4 extremities Sensation to light touch grossly present throughout Cranial nerves II-XII grossly intact Lymphatics: no palpable cervical or supraclavicular lymph nodes Past Medical History Past Medical History: Cancer, Diabetes Mellitus, Hypertension, Osteoarthritis (OA) Additional Past Medical History / Comment(s): Hx ovarian CA, constipation, urinary leakage, anemia History of Any Multi-Drug Resistant Organisms: None Reported Past Surgical History: Appendectomy, Bladder Surgery, Hysterectomy Additional Past Surgical History / Comment(s): bladder suspension, lymph nodes and part of bowel removed with hysterectomy Past Anesthesia/Blood Transfusion Reactions: No Reported Reaction Past Psychological History: No Psychological Hx Reported Smoking Status: Former smoker Past Alcohol Use History: Occasional Past Drug Use History: None Reported - Past Family History Brother(s) Family Medical History: Cancer Mother Family Medical History: Cancer Additional Family Medical History / Comment(s): Bone cancer Father History Unknown: Yes Family Medical History: Cancer Medications and Allergies Home Medications Medication Instructions Recorded Confirmed Type Gabapentin 300 mg PO DAILY PRN 02/13/23 07/02/23 History Pantoprazole Sodium [Protonix] 20 mg PO BID 02/13/23 07/02/23 History Rosuvastatin Calcium 5 mg PO DAILY 02/13/23 07/02/23 History Dapagliflozin Propanediol [Farxiga] 10 mg PO DAILY #30 tab 02/17/23 07/02/23 Rx ALPRAZolam [Xanax] 0.25 mg PO Q8H PRN 07/02/23 07/02/23 History Aspirin EC [Ecotrin Low Dose] 81 mg PO DAILY 07/02/23 07/02/23 History Iron 142mg (45fe) Tablet 1 tab PO DAILY 07/02/23 07/02/23 History Magnesium Oxide [Mag-Ox] 400 mg PO DAILY 07/02/23 07/02/23 History Sacubitril/Valsartan [Entresto 49 1 tab PO BID 07/02/23 07/02/23 History mg-51 mg Tablet] Spironolactone [Aldactone] 12.5 mg PO DAILY 07/02/23 07/02/23 History carvediloL [Coreg] 6.25 mg PO BID-W/MEALS 07/02/23 07/02/23 History Allergies Allergy/AdvReac Type Severity Reaction Status Date / Time No Known Allergies Allergy Verified 07/02/23 17:48 Physical Exam Vitals: Vital Signs Temp Pulse Resp BP 07/02/23 18:08 97.9 F 80 22 122/68 07/02/23 12:03 98.3 F 77 20 120/62 Intake and Output 07/02/23 07/02/23 07/02/23 06:59 14:59 22:59 Other: Weight 57.606 kg Results CBC & Chem 7: 07/02/23 15:49 07/02/23 15:49 Labs: Abnormal Lab Results - Last 24 Hours (Table) 07/02/23 07/02/23 07/02/23 Range/Units 15:49 15:49 15:49 RBC 1.99 L (3.80-5.40) m/uL Hgb 6.3 L* (11.4-16.0) gm/dL Hct 18.4 L* (34.0-46.0) % RDW 18.2 H (11.5-15.5) % Plt Count 2 L* (150-450) k/uL Monocytes # (Manual) 3.07 H (0-1.0) k/uL APTT 19.3 L (22.0-30.0) sec Sodium 130 L (137-145) mmol/L Carbon Dioxide 19 L (22-30) mmol/L BUN 23 H (7-17) mg/dL Glucose 65 L (74-99) mg/dL Total Protein 6.0 L (6.3-8.2) g/dL Albumin 3.4 L (3.5-5.0) g/dL Crossmatch 07/02/23 Range/Units 15:50 RBC (3.80-5.40) m/uL Hgb (11.4-16.0) gm/dL Hct (34.0-46.0) % RDW (11.5-15.5) % Plt Count (150-450) k/uL Monocytes # (Manual) (0-1.0) k/uL APTT (22.0-30.0) sec Sodium (137-145) mmol/L Carbon Dioxide (22-30) mmol/L BUN (7-17) mg/dL Glucose (74-99) mg/dL Total Protein (6.3-8.2) g/dL Albumin (3.5-5.0) g/dL Crossmatch See Detail Assessment and Plan Assessment: 72-year-old female with ovarian cancer since 2017 with multiple relapses currently on chemotherapy last dose 2 weeks ago. She is presenting with refractory nosebleed blood work revealed vital count of 2 I discussed the case with the ED doctor accepted the admission for severe thrombocytopenia, and anemia requiring platelet and blood transfusion with anticipated length of stay more than 2 midnights Refractory nosebleed Severe thrombocytopenia most likely secondary to chemotherapy Platelet count 2000 this is critical platelet transfusion ordered we'll continue to monitor platelet count goal is to initially keep it at least above 10,000 If poor response to platelet transfusion will consider DIC workup Blood transfusion ordered for hemoglobin 6.3 currently asymptomatic Fall precautions Neurochecks every 2 hours 6 then every 4 hours 6 Avoid NSAIDs, aspirin, pharmacologic DVT prophylaxis Hematology consult History of ovarian cancer with recurrent relapses currently on chemotherapy continue outpatient follow-up Systolic congestive heart failure with left ventricular ejection fraction 25%, compensated at this time Maintain euvolemic status Continue Coreg with hold parameters, Aldactone, farxiga, Entresto with hold parameters Daily weights Fluid restriction of 2 L per day Cardiac monitoring Diabetes mellitus Continue Farxiga Insulin sliding scale Renal function otherwise unremarkable BUN 23 creatinine 0.76 Chronic hyponatremia 130 Potassium 4.5 Full code DVT prophylaxis mechanical secondary to severe thrombocytopenia
[2023-07-02 21:21] LABS: Glucose,Whole Blood 178 mg/dL (70-110)
[2023-07-02] MEDS: carvediloL 6.25 MG TAB PO SCH (21:32)
[2023-07-02] MEDS: INSULIN ASPART (NovoLOG) 100 UNIT/ML VIAL SQ SCH (21:32)
[2023-07-02] MEDS: PANTOPRAZOLE 40 MG TABLET PO SCH (21:32)
[2023-07-02] MEDS: SACUBITRIL/VALSARTAN 49 MG-51 MG TABLET PO SCH (21:34)
[2023-07-03 03:45] LABS: Anisocytosis Slight; HCT 20.6 % (34.0-46.0); MCH 30.8 pg (25.0-35.0); MCHC 34.2 g/dL (31.0-37.0); MCV 90.1 fL (80.0-100.0); Mean Platelet Volume 10.8; RBC 2.28 m/uL (3.80-5.40); RDW 17.9 % (11.5-15.5); WBC 13.7 k/uL (3.8-10.6)
[2023-07-03 03:47] LABS: Platelet Count 29 k/uL (150-450)
[2023-07-03 05:26] LABS: Band Neutrophils % 1 %; Lymphocytes # (M) 2.74 k/uL (1.0-4.8); Monocytes # (M) 1.64 k/uL (0-1.0); Neutrophils % (M) 67 %; Nucleated Red Blood Cells 0 /100 WBC (0-0); Total Cells Counted 100
[2023-07-03 05:27] LABS: Poikilocytosis (M) Present; RBC Fragments Present
[2023-07-03 07:27] LABS: Glucose,Whole Blood 110 mg/dL (70-110)
[2023-07-03] MEDS: INSULIN ASPART (NovoLOG) 100 UNIT/ML VIAL SQ SCH ×4 (07:27→21:41)
[2023-07-03] MEDS: carvediloL 6.25 MG TAB PO SCH ×2 (07:30→17:58)
[2023-07-03 08:09] LABS: Anisocytosis Slight; HCT 21.7 % (34.0-46.0); HGB 7.4 gm/dL (11.4-16.0); MCH 31.4 pg (25.0-35.0); MCHC 34.2 g/dL (31.0-37.0); MCV 91.6 fL (80.0-100.0); Mean Platelet Volume 9.6; RBC 2.37 m/uL (3.80-5.40); RDW 17.2 % (11.5-15.5); WBC 13.6 k/uL (3.8-10.6)
[2023-07-03 08:11] LABS: Platelet Count 27 k/uL (150-450)
[2023-07-03 08:17] LABS: African American GFR (CKD) 75 (>60 ml/min/1.73 sqM); Anion Gap 10 mmol/L; Blood Urea Nitrogen 18 mg/dL (7-17); Calcium 8.9 mg/dL (8.4-10.2); Carbon Dioxide 22 mmol/L (22-30); Chloride 101 mmol/L (98-107); Glucose 119 mg/dL (74-99); Non-African American GFR(CKD) 65 (>60 ml/min/1.73 sqM); Potassium 4.5 mmol/L (3.5-5.1); Sodium 133 mmol/L (137-145)
[2023-07-03 09:01] LABS: Neutrophils % (M) 61 %; Nucleated Red Blood Cells 0 /100 WBC (0-0)
[2023-07-03 09:04] LABS: Dohle Bodies Present; Lymphocytes # (M) 2.72 k/uL (1.0-4.8); Monocytes # (M) 2.72 k/uL (0-1.0); Total Cells Counted 200
[2023-07-03 09:06] LABS: Poikilocytosis (M) Present; RBC Fragments Present
[2023-07-03 09:07] LABS: Toxic Granulation Present
[2023-07-03] MEDS: SPIRONOLACTONE 25 MG TAB PO SCH (09:52)
[2023-07-03] MEDS: PANTOPRAZOLE 40 MG TABLET PO SCH ×2 (09:52→22:36)
[2023-07-03] MEDS: DAPAGLIFLOZIN PROPANEDIOL 10 MG TABLET PO SCH (09:53)
[2023-07-03] MEDS: SACUBITRIL/VALSARTAN 49 MG-51 MG TABLET PO SCH ×2 (09:54→22:36)
[2023-07-03] MEDS: ATORVASTATIN 10 MG TAB PO SCH (09:54)
[2023-07-03 12:08] LABS: Glucose,Whole Blood 92 mg/dL (70-110)
--- NOTE | 2023-07-03 13:36 | P.PN ---
Subjective Progress Note Date: 07/03/23 Hospital Course: 72-year-old female with recurrent ovarian cancer over the past 6 years on chemotherapy last dose was 2 weeks ago, systolic heart failure with EF 25-30%, hypertension, GERD, dyslipidemia presenting with refractory epistaxis. Vital signs within normal limits. Initial lab work showed hemoglobin of 6.3, platelet count of 2, sodium 1:30, bicarbonate 19, creatinine 0.76. She received 1 unit of PRBCs and 1 platelets. Hemoglobin improved to 7.4, platelet count at 27. H ematology oncology consulted. Subjective: Patient seen and examined at bedside. No acute events overnight. Denies any further epistaxis. Pertinent positives and negatives as discussed above, a complete review of systems was performed and all other systems are negative. Vitals Signs Reviewed. General: nontoxic, no distress, appears at stated age Derm: warm, dry Head: atraumatic, normocephalic, symmetric Eyes: EOMI, no lid lag, anicteric sclera Mouth: no lip lesion, mucus membranes moist Cardiovascular: S1S2 reg, no murmur Lungs: CTA bilateral, no rhonchi, no rales , no accessory muscle use Abdominal: soft, nontender to palpation, no guarding, no appreciable organomegaly Ext: no gross muscle atrophy, no edema, no contractures Neuro: CN II-XI grossly intact, no focal neuro deficits Psych: Alert, oriented, appropriate affect Data Reviewed Today: Pertinent Labs: Hemoglobin 7.4, WBC 13.6, platelet 27, sodium 133, creatinine 0.9, A1c 6.2, blood sugars range between 92-178 Imaging: No new imaging Assessment and Plan: Patient is critically ill, needs close monitoring. Active: Acute symptomatic blood loss anemia Refractory epistaxis, resolved Acute thrombocytopenia Recurrent ovarian cancer, on active chemotherapy, status post hysterectomy and bilateral nephrectomy, and lymph node dissection -Status post 1 of PRBCs, and 1 dose of platelets -Hemoglobin and platelet count currently stable -Repeat CBC tomorrow -Avoid NSAIDs, aspirin, pharmacologic DVT prophylaxis -Hematology consulted Type 2 diabetes, A1c 6.2 -Continue farxiga, and sliding scale insulin, monitor for hypoglycemia Chronic: Systolic cardiomyopathy with EF 25-30%, not in exacerbation SIADH GERD Hypertension DVT ppx: SCDs Code status: Full code Anticipated discharge place: Pending clinical course Objective - Vital Signs Vital signs: Vital Signs Temp 98 F 07/03/23 10:28 Pulse 71 07/03/23 10:28 Resp 18 07/03/23 10:28 BP 124/74 07/03/23 10:28 Pulse Ox 99 07/03/23 10:28 FiO2 Intake & Output 07/02/23 07/03/23 07/03/23 18:59 06:59 18:59 Intake Total 310 Balance 310 Weight 57.606 kg Intake: Blood Product 310 Platelet Pheresis Pas 0 Psoralen Unit [id number] Rc Irr As1 Unit 310 [id number] - Labs CBC & Chem 7: 07/03/23 07:36 07/03/23 07:36 Labs: Abnormal Lab Results - Last 24 Hours (Table) 07/02/23 07/02/23 07/02/23 Range/Units 15:49 15:49 15:49 WBC (3.8-10.6) k/uL RBC 1.99 L (3.80-5.40) m/uL Hgb 6.3 L* (11.4-16.0) gm/dL Hct 18.4 L* (34.0-46.0) % RDW 18.2 H (11.5-15.5) % Plt Count 2 L* (150-450) k/uL Neutrophils # (Manual) (1.3-7.7) k/uL Monocytes # (Manual) 3.07 H (0-1.0) k/uL APTT 19.3 L (22.0-30.0) sec Sodium 130 L (137-145) mmol/L Carbon Dioxide 19 L (22-30) mmol/L BUN 23 H (7-17) mg/dL Glucose 65 L (74-99) mg/dL POC Glucose (mg/dL) (70-110) mg/dL Hemoglobin A1c (<=6.0) % Total Protein 6.0 L (6.3-8.2) g/dL Albumin 3.4 L (3.5-5.0) g/dL Crossmatch 07/02/23 07/02/23 07/03/23 Range/Units 15:50 21:19 03:25 WBC (3.8-10.6) k/uL RBC (3.80-5.40) m/uL Hgb (11.4-16.0) gm/dL Hct (34.0-46.0) % RDW (11.5-15.5) % Plt Count (150-450) k/uL Neutrophils # (Manual) (1.3-7.7) k/uL Monocytes # (Manual) (0-1.0) k/uL APTT (22.0-30.0) sec Sodium (137-145) mmol/L Carbon Dioxide (22-30) mmol/L BUN (7-17) mg/dL Glucose (74-99) mg/dL POC Glucose (mg/dL) 178 H (70-110) mg/dL Hemoglobin A1c 6.2 H (<=6.0) % Total Protein (6.3-8.2) g/dL Albumin (3.5-5.0) g/dL Crossmatch See Detail 07/03/23 07/03/23 07/03/23 Range/Units 03:25 07:36 07:36 WBC 13.7 H 13.6 H (3.8-10.6) k/uL RBC 2.28 L 2.37 L (3.80-5.40) m/uL Hgb 7.0 L 7.4 L (11.4-16.0) gm/dL Hct 20.6 L 21.7 L (34.0-46.0) % RDW 17.9 H 17.2 H (11.5-15.5) % Plt Count 29 L D 27 L (150-450) k/uL Neutrophils # (Manual) 9.30 H 8.30 H (1.3-7.7) k/uL Monocytes # (Manual) 1.64 H 2.72 H (0-1.0) k/uL APTT (22.0-30.0) sec Sodium 133 L (137-145) mmol/L Carbon Dioxide (22-30) mmol/L BUN 18 H (7-17) mg/dL Glucose 119 H (74-99) mg/dL POC Glucose (mg/dL) (70-110) mg/dL Hemoglobin A1c (<=6.0) % Total Protein (6.3-8.2) g/dL Albumin (3.5-5.0) g/dL Crossmatch
[2023-07-03 17:03] LABS: Glucose,Whole Blood 190 mg/dL (70-110)
[2023-07-03 21:24] LABS: Glucose,Whole Blood 101 mg/dL (70-110)
[2023-07-04 07:13] LABS: Glucose,Whole Blood 91 mg/dL (70-110)
[2023-07-04] MEDS: INSULIN ASPART (NovoLOG) 100 UNIT/ML VIAL SQ SCH ×4 (07:38→20:50)
[2023-07-04] MEDS: DAPAGLIFLOZIN PROPANEDIOL 10 MG TABLET PO SCH (08:44)
[2023-07-04] MEDS: ATORVASTATIN 10 MG TAB PO SCH (08:44)
[2023-07-04] MEDS: PANTOPRAZOLE 40 MG TABLET PO SCH ×2 (08:44→20:50)
[2023-07-04] MEDS: carvediloL 6.25 MG TAB PO SCH ×2 (08:44→17:18)
[2023-07-04] MEDS: SPIRONOLACTONE 25 MG TAB PO SCH (08:44)
[2023-07-04] MEDS: SACUBITRIL/VALSARTAN 49 MG-51 MG TABLET PO SCH ×2 (08:44→20:50)
[2023-07-04 11:01] LABS: BUN/Creat Ratio 13.78 Ratio (12.00-20.00); Blood Urea Nitrogen 12.4 mg/dL (9.0-27.0); Calcium 8.7 mg/dL (8.7-10.3); Carbon Dioxide 24.3 mmol/L (21.6-31.8); Chloride 102 mmol/L (96-109); Glucose 84 mg/dL (70-110); Potassium 4.3 mmol/L (3.5-5.5); Sodium 134 mmol/L (135-145)
[2023-07-04 12:04] LABS: HCT 20.5 % (37.2-46.3); HGB 6.7 g/dL (12.0-15.0); Immature Platelet Fraction 12.6 % (1.1-6.1); MCH 30.2 pg (27.0-32.0); MCHC 32.7 g/dL (32.0-37.0); MCV 92.3 FL (80.0-97.0); Mean Platelet Volume 10.7 FL (9.5-12.2); NRBC Per 100 WBC 0.06 X 10*3/uL (0.00-0.01); Platelet Count 18 X 10*3/uL (140-440); RBC 2.22 X 10*6/uL (4.10-5.20); RDW 16.3 % (11.5-14.5); WBC 14.81 X 10*3/uL (4.50-10.00)
[2023-07-04 12:05] LABS: Basophils # (M) 0 X 10*3/uL (0.00-0.10); Neutrophils % (M) 54 %
[2023-07-04 12:06] LABS: Acanthocytes 2+; Hypochromasia (M) 2+; Lymphocytes # (M) 2.81 X 10*3/uL (0.90-5.00); Macrocytosis (M) 2+; Target Cells 2+
[2023-07-04 12:20] LABS: Glucose,Whole Blood 98 mg/dL (70-110)
--- NOTE | 2023-07-04 14:21 | P.PN ---
Subjective Progress Note Date: 07/04/23 Hospital Course: 72-year-old female with recurrent ovarian cancer over the past 6 years on chem otherapy last dose was 2 weeks ago, systolic heart failure with EF 25-30%, hypertension, GERD, dyslipidemia presenting with refractory epistaxis. Vital signs within normal limits. Initial lab work showed hemoglobin of 6.3, platelet count of 2, sodium 1:30, bicarbonate 19, creatinine 0.76. She received 1 unit of PRBCs and 1 platelets. Hemoglobin improved to 7.4, platelet count at 27. Hematology oncology consulted. Receiving iron infusions and 1 unit of PRBC. Subjective: Patient seen and examined at bedside. No acute events overnight. Denies any further epistaxis. Pertinent positives and negatives as discussed above, a complete review of systems was performed and all other systems are negative. Vitals Signs Reviewed. General: nontoxic, no distress, appears at stated age Derm: warm, dry Head: atraumatic, normocephalic, symmetric Eyes: EOMI, no lid lag, anicteric sclera Mouth: no lip lesion, mucus membranes moist Cardiovascular: S1S2 reg, no murmur Lungs: CTA bilateral, no rhonchi, no rales , no accessory muscle use Abdominal: soft, nontender to palpation, no guarding, no appreciable organomegaly Ext: no gross muscle atrophy, no edema, no contractures Neuro: CN II-XI grossly intact, no focal neuro deficits Psych: Alert, oriented, appropriate affect Data Reviewed Today: Pertinent Labs: WBC 14.1, hemoglobin 6.7, platelet 18, sodium 134, potassium 4.3, creatinine 0.9, blood glucose injury between 84-101 Imaging: No new imaging Assessment and Plan: Critically ill. Active: Acute symptomatic blood loss anemia Refractory epistaxis, resolved Acute thrombocytopenia Recurrent ovarian cancer, on active chemotherapy, status post hysterectomy and bilateral nephrectomy, and lymph node dissection -Status post 1 of PRBCs, and 1 dose of platelets -Pending another unit of PRBCs today -Discussed management with hematology, and IV iron infusions then possibly discharge him -Repeat CBC tomorrow -Avoid NSAIDs, aspirin, pharmacologic DVT prophylaxis Type 2 diabetes, A1c 6.2 -Continue farxiga, and sliding scale insulin, monitor for hypoglycemia Chronic: Systolic cardiomyopathy with EF 25-30%, not in exacerbation SIADH GERD Hypertension DVT ppx: SCDs Code status: Full code Anticipated discharge place: Pending clinical course Objective - Vital Signs Vital signs: Vital Signs Temp 98.7 F 07/04/23 13:38 Pulse 73 07/04/23 13:38 Resp 18 07/04/23 13:38 BP 143/64 07/04/23 13:38 Pulse Ox 99 07/04/23 13:38 FiO2 Intake & Output 07/03/23 07/04/23 07/04/23 18:59 06:59 18:59 Intake Total 0 Balance 0 Weight 57.606 kg Intake: Blood Product 0 Rc Irr As1 Unit 0 [id number] Other: # Voids 3 - Labs CBC & Chem 7: 07/04/23 07:59 07/04/23 07:59 Labs: Abnormal Lab Results - Last 24 Hours (Table) 07/02/23 07/03/23 07/04/23 Range/Units 15:50 17:02 07:59 WBC 14.81 H (4.50-10.00) X 10*3/uL RBC 2.22 L (4.10-5.20) X 10*6/uL Hgb 6.7 A* (12.0-15.0) g/dL Hct 20.5 L (37.2-46.3) % RDW 16.3 H (11.5-14.5) % Plt Count 18 A* (140-440) X 10*3/uL Monocytes # (Manual) 3.70 H (0.20-1.00) X 10*3/uL NRBC/100 WBC Diff 0.06 H (0.00-0.01) X 10*3/uL Immature Plt Fraction 12.6 H (1.1-6.1) % Hypochromasia (manual) 2+ A Macrocytosis (manual) 2+ A Target Cells 2+ A Acanthocytes (Spur) 2+ A Sodium (135-145) mmol/L POC Glucose (mg/dL) 190 H (70-110) mg/dL Crossmatch See Detail 07/04/23 Range/Units 07:59 WBC (4.50-10.00) X 10*3/uL RBC (4.10-5.20) X 10*6/uL Hgb (12.0-15.0) g/dL Hct (37.2-46.3) % RDW (11.5-14.5) % Plt Count (140-440) X 10*3/uL Monocytes # (Manual) (0.20-1.00) X 10*3/uL NRBC/100 WBC Diff (0.00-0.01) X 10*3/uL Immature Plt Fraction (1.1-6.1) % Hypochromasia (manual) Macrocytosis (manual) Target Cells Acanthocytes (Spur) Sodium 134 L (135-145) mmol/L POC Glucose (mg/dL) (70-110) mg/dL Crossmatch
[2023-07-04 16:01] VITALS: RESP 16
--- NOTE | 2023-07-04 16:11 | P.CONS ---
History of Present Illness - Reason for Consult Consult date: 07/04/23 hx ovarian cancer Requesting physician: Juan Carlos Grajeda - Chief Complaint epistaxis - History of Present Illness Patient is a 72-year-old female with a significant history of ovarian cancer. She is a patient of Dr. Rossi at [facility]. She had initially presented to her PCP with upper abdominal pain, intermittently, occasionally related with eating, and bloating, in mid 11/2016. She had an US on 11/18/16 revealing abnormal thickening of the gallbladder, but also intra abdominal fluid. She had a CT scan on 11/26/16 showing mass like fullness of the right ovary, 5.5 x 3.7 cm, ascites, omental caking and scattered omental nodules, with mildly prominent gastrohepatic nodes at 1.1cm. Baseline CA125 was 896. She was referred to [facility], Dr Lacey, at [facility], and had resection on 12/13/16, and was diagnosed with stage III ovarian cancer. She started adjuvant Carbo + dose dense Taxol in January 2017. She was seen by Dr. Traylor in January 2017 to establish care, so as she wanted her treatments locally, but never followed up in clinic since. Patient reports she is currently on treatment with Carbo/gemzar/Avastin, and last received treatment 2 weeks ago. Patient presented to emergency room with epistaxis. Patient reports bleeding was heavy. Denies any injury. She is not on any blood thinners. Denies blood in stool and urine. On admission CBC revealed hemoglobin 6.3 and platelets 2000. She subsequently received 1 unit of PRBCs and platelets. Pt reports that she has been having to receive frequent blood transfusions outpt while on treatment. Today counts have improved, hemoglobin 7.4, platelets 27,000. Patient has had no epistaxis for last 24 hours. Review of Systems 10 point ROS is negative except as stated in the HPI Past Medical History Past Medical History: Cancer, Hypertension, Osteoarthritis (OA) Additional Past Medical History / Comment(s): Hx ovarian CA, constipation, urinary leakage, anemia History of Any Multi-Drug Resistant Organisms: None Reported Past Surgical History: Appendectomy, Bladder Surgery, Hysterectomy Additional Past Surgical History / Comment(s): bladder suspension, lymph nodes, spleen and part of bowel removed with hysterectomy Past Anesthesia/Blood Transfusion Reactions: No Reported Reaction Past Psychological History: No Psychological Hx Reported Smoking Status: Former smoker Past Alcohol Use History: Occasional Past Drug Use History: None Reported - Past Family History Brother(s) Family Medical History: Cancer Mother Family Medical History: Cancer Additional Family Medical History / Comment(s): Bone cancer Father History Unknown: Yes Family Medical History: Cancer Medications and Allergies Home Medications Medication Instructions Recorded Confirmed Type Gabapentin 300 mg PO DAILY PRN 02/13/23 07/02/23 History Pantoprazole Sodium [Protonix] 20 mg PO BID 02/13/23 07/02/23 History Rosuvastatin Calcium 5 mg PO DAILY 02/13/23 07/02/23 History Dapagliflozin Propanediol [Farxiga] 10 mg PO DAILY #30 tab 02/17/23 07/02/23 Rx ALPRAZolam [Xanax] 0.25 mg PO Q8H PRN 07/02/23 07/02/23 History Aspirin EC [Ecotrin Low Dose] 81 mg PO DAILY 07/02/23 07/02/23 History Iron 142mg (45fe) Tablet 1 tab PO DAILY 07/02/23 07/02/23 History Magnesium Oxide [Mag-Ox] 400 mg PO DAILY 07/02/23 07/02/23 History Sacubitril/Valsartan [Entresto 49 1 tab PO BID 07/02/23 07/02/23 History mg-51 mg Tablet] Spironolactone [Aldactone] 12.5 mg PO DAILY 07/02/23 07/02/23 History carvediloL [Coreg] 6.25 mg PO BID-W/MEALS 07/02/23 07/02/23 History Allergies Allergy/AdvReac Type Severity Reaction Status Date / Time No Known Allergies Allergy Verified 07/02/23 17:48 Physical Exam Vitals: Vital Signs Temp Pulse Pulse Resp BP BP Pulse Ox 07/04/23 13:38 98.7 F 73 18 143/64 99 07/04/23 13:18 99.1 F 73 16 146/68 100 07/04/23 13:08 98.7 F 77 14 132/68 100 07/04/23 11:18 71 100 07/04/23 07:07 98.6 F 80 16 130/60 81 L 07/04/23 02:00 99.1 F 79 16 128/81 99 07/03/23 20:36 99.2 F 80 16 123/68 100 07/03/23 20:00 16 Intake and Output 07/04/23 07/04/23 07/04/23 06:59 14:59 22:59 Intake Total 0 Balance 0 Intake: Blood Product 0 Rc Irr As1 Unit 0 [id number] Other: # Voids 3 - Constitutional General appearance: average body habitus, no acute distress - EENT no epistaxis noted Eyes: anicteric sclerae, EOMI ENT: hearing grossly normal - Respiratory Respiratory: bilateral: CTA - Cardiovascular Rhythm: regular Heart sounds: normal: S1, S2 - Gastrointestinal General gastrointestinal: soft, no tenderness - Integumentary Integumentary: no cyanotic - Neurologic grossly intact - Musculoskeletal Musculoskeletal: strength equal bilaterally - Psychiatric Psychiatric: A&O x's 3, appropriate affect Results CBC & Chem 7: 07/04/23 07:59 07/04/23 07:59 Labs: Abnormal Lab Results - Last 24 Hours (Table) 07/02/23 07/03/23 07/04/23 Range/Units 15:50 17:02 07:59 WBC 14.81 H (4.50-10.00) X 10*3/uL RBC 2.22 L (4.10-5.20) X 10*6/uL Hgb 6.7 A* (12.0-15.0) g/dL Hct 20.5 L (37.2-46.3) % RDW 16.3 H (11.5-14.5) % Plt Count 18 A* (140-440) X 10*3/uL Monocytes # (Manual) 3.70 H (0.20-1.00) X 10*3/uL NRBC/100 WBC Diff 0.06 H (0.00-0.01) X 10*3/uL Immature Plt Fraction 12.6 H (1.1-6.1) % Hypochromasia (manual) 2+ A Macrocytosis (manual) 2+ A Target Cells 2+ A Acanthocytes (Spur) 2+ A Sodium (135-145) mmol/L POC Glucose (mg/dL) 190 H (70-110) mg/dL Crossmatch See Detail 07/04/23 Range/Units 07:59 WBC (4.50-10.00) X 10*3/uL RBC (4.10-5.20) X 10*6/uL Hgb (12.0-15.0) g/dL Hct (37.2-46.3) % RDW (11.5-14.5) % Plt Count (140-440) X 10*3/uL Monocytes # (Manual) (0.20-1.00) X 10*3/uL NRBC/100 WBC Diff (0.00-0.01) X 10*3/uL Immature Plt Fraction (1.1-6.1) % Hypochromasia (manual) Macrocytosis (manual) Target Cells Acanthocytes (Spur) Sodium 134 L (135-145) mmol/L POC Glucose (mg/dL) (70-110) mg/dL Crossmatch Assessment and Plan (1) Antineoplastic chemotherapy induced pancytopenia Current Visit: Yes Status: Acute Priority: High Code(s): D61.810 - ANTINEOPLASTIC CHEMOTHERAPY INDUCED PANCYTOPENIA; T45.1X5A - ADVERSE EFFECT OF ANTINEOPLASTIC AND IMMUNOSUP DRUGS, INIT SNOMED Code(s): 976873942835378 (2) Epistaxis Current Visit: Yes Status: Acute Priority: High Code(s): R04.0 - EPISTAXIS SNOMED Code(s): 638291468 (3) Ovarian cancer Current Visit: Yes Status: Acute Priority: High Code(s): C56.9 - MALIGNANT NEOPLASM OF UNSPECIFIED OVARY SNOMED Code(s): 697140148 Plan: Epistaxis: -Now resolved -Secondary to severe thrombocytopenia r/t chemo. Also known side effect of Avastin is epistaxis Pancytopenia: -Secondary to chemotherapy -Upon admission CBC revealed hemoglobin 6.3 and platelets 2000. She subsequently received 1 unit of PRBCs and platelets. Pt reports that she has been having to receive frequent blood transfusions outpt while on treatment. Today counts have improved, hemoglobin 7.4, platelets 27,000. Epistaxis resolved -Will continue to monitor. Please transfuse for hemoglobin less than 7 or if symptomatic and for platelets less than 10,000 or if symptomatic Ovarian Cancer: -Follows with Dr. Rossi at [facility] -Currently on treatment with Carbo/gemzar/Avastin, and last received treatment 2 weeks ago -Patient is due for next cycle this , will likely need to hold treatment this week. Patient instructed to f/u with Dr. Rossi for reevaluation prior to proceeding with treatment Attests: I have seen and examined pt, performed H&P, developed impression and plan of care. Discussed with dictator. Agree with documentation, dictated as a scribe
[2023-07-04] MEDS: SODIUM FERRIC GLUCONAT-SUCROSE 125 MG in SODIUM CHLORIDE 0.9% 100 ML IVPB SCH (17:18)
[2023-07-04 17:27] LABS: Glucose,Whole Blood 88 mg/dL (70-110)
[2023-07-04 19:58] LABS: Glucose,Whole Blood 99 mg/dL (70-110)
[2023-07-05 06:37] LABS: Anisocytosis Slight; HCT 26.5 % (34.0-46.0); MCH 31.2 pg (25.0-35.0); MCHC 34.6 g/dL (31.0-37.0); MCV 90.4 fL (80.0-100.0); Mean Platelet Volume 12.5; RBC 2.93 m/uL (3.80-5.40); RDW 16.8 % (11.5-15.5); WBC 14.7 k/uL (3.8-10.6)
[2023-07-05 06:55] LABS: HGB 9.1 gm/dL (11.4-16.0); Platelet Count 22 k/uL (150-450)
[2023-07-05 07:11] LABS: Glucose,Whole Blood 88 mg/dL (70-110)
[2023-07-05] MEDS: INSULIN ASPART (NovoLOG) 100 UNIT/ML VIAL SQ SCH ×2 (07:16→13:49)
[2023-07-05 08:00] VITALS: BP 142/58; PULSE 74; TEMP 98.6
[2023-07-05] MEDS: SODIUM FERRIC GLUCONAT-SUCROSE 125 MG in SODIUM CHLORIDE 0.9% 100 ML IVPB SCH (08:13)
[2023-07-05] MEDS: carvediloL 6.25 MG TAB PO SCH (08:14)
[2023-07-05] MEDS: PANTOPRAZOLE 40 MG TABLET PO SCH (08:14)
[2023-07-05] MEDS: ATORVASTATIN 10 MG TAB PO SCH (08:14)
[2023-07-05] MEDS: SACUBITRIL/VALSARTAN 49 MG-51 MG TABLET PO SCH (08:14)
[2023-07-05] MEDS: DAPAGLIFLOZIN PROPANEDIOL 10 MG TABLET PO SCH (08:14)
[2023-07-05] MEDS: SPIRONOLACTONE 25 MG TAB PO SCH (08:29)
[2023-07-05 10:31] LABS: Eosinophils # (M) 0.15 k/uL (0-0.7); Lymphocytes # (M) 1.91 k/uL (1.0-4.8); Metamyelocytes # (M) 0.29 k/uL (0); Metamyelocytes % 2 %; Monocytes # (M) 2.94 k/uL (0-1.0); Myelocytes # (M) 0.15 k/uL (0); Myelocytes % 1 %; Neutrophils # (M) 9.41 k/uL (1.3-7.7); Neutrophils % (M) 64 %; Nucleated Red Blood Cells 0 /100 WBC (0-0); Total Cells Counted 200
[2023-07-05 10:33] LABS: Poikilocytosis (M) Present; RBC Fragments Present
[2023-07-05 11:57] LABS: Glucose,Whole Blood 183 mg/dL (70-110)
--- NOTE | 2023-07-05 12:20 | P.DS ---
Providers Date of admission: 07/02/23 17:33 Expected date of discharge: 07/05/23 Attending physician: Sonia Calabrese DO Consults: 07/03/23 16:55 Consult Physician Routine Consulting Provider: Milo Traylor Consult Reason/Comments: Ovarian Cancer Do you want consulting provider notified?: Yes Primary care physician: Eliseo Carrera MD Hospital Course: Discharge Diagnosis: Acute symptomatic blood loss anemia Refractory epistaxis Acute thrombocytopenia Recurrent ovarian cancer, on active chemotherapy, status post hysterectomy and bilateral nephrectomy, and lymph node dissection Type 2 diabetes, A1c 6.2 Hospital Course: 72-year-old female with recurrent ovarian cancer over the past 6 years on chemotherapy last dose was 2 weeks ago, systolic heart failure with EF 25-30%, hypertension, GERD, dyslipidemia presenting with refractory epistaxis. Vital signs within normal limits. Initial lab work showed hemoglobin of 6.3, platelet count of 2, sodium 1:30, bicarbonate 19, creatinine 0.76. She received 1 unit of PRBCs and 1 platelets. Hemoglobin improved to 7.4, platelet count at 27. Hematology/oncology consulted. Epistaxis resolved. Pancytopenia likely in the setting of chemotherapy. Patient received a total of 2 units of PRBCs and 1 platelets. She also received 2 IV iron infusions. She is currently stable and being discharged home. Follow-up with her oncologist. Patient seen and examined at bedside. Vital signs reviewed and stable. General: nontoxic, no distress, appears at stated age Derm: warm, dry Head: atraumatic, normocephalic, symmetric Eyes: EOMI, no lid lag, anicteric sclera Mouth: no lip lesion, mucus membranes moist Cardiovascular: S1S2 reg, no murmur Lungs: CTA bilateral, no rhonchi, no rales , no accessory muscle use Abdominal: soft, nontender to palpation, no guarding, no appreciable organomegaly Ext: no gross muscle atrophy, no edema, no contractures Neuro: CN II-XI grossly intact, no focal neuro deficits Psych: Alert, oriented, appropriate affect A total of 33 minutes of time were spent preparing this complex discharge summary. Patient was discharged on 07/05/23 at 11:35. Patient Condition at Discharge: Stable Plan - Discharge Summary Discharge Rx Participant: No New Discharge Prescriptions: Continue Rosuvastatin Calcium 5 mg PO DAILY Pantoprazole Sodium [Protonix] 20 mg PO BID carvediloL [Coreg] 6.25 mg PO BID-W/MEALS ALPRAZolam [Xanax] 0.25 mg PO Q8H PRN PRN Reason: Anxiety Spironolactone [Aldactone] 12.5 mg PO DAILY Gabapentin 300 mg PO DAILY PRN PRN Reason: Pain Dapagliflozin Propanediol [Farxiga] 10 mg PO DAILY #30 tab Sacubitril/Valsartan [Entresto 49 mg-51 mg Tablet] 1 tab PO BID Magnesium Oxide [Mag-Ox] 400 mg PO DAILY Iron 142mg (45fe) Tablet 1 tab PO DAILY Discontinued Aspirin EC [Ecotrin Low Dose] 81 mg PO DAILY Discharge Medication List Gabapentin 300 mg PO DAILY PRN 02/13/23 [History] Pantoprazole Sodium [Protonix] 20 mg PO BID 02/13/23 [History] Rosuvastatin Calcium 5 mg PO DAILY 02/13/23 [History] Dapagliflozin Propanediol [Farxiga] 10 mg PO DAILY #30 tab 02/17/23 [Rx] ALPRAZolam [Xanax] 0.25 mg PO Q8H PRN 07/02/23 [History] Iron 142mg (45fe) Tablet 1 tab PO DAILY 07/02/23 [History] Magnesium Oxide [Mag-Ox] 400 mg PO DAILY 07/02/23 [History] Sacubitril/Valsartan [Entresto 49 mg-51 mg Tablet] 1 tab PO BID 07/02/23 [History] Spironolactone [Aldactone] 12.5 mg PO DAILY 07/02/23 [History] carvediloL [Coreg] 6.25 mg PO BID-W/MEALS 07/02/23 [History] Follow up Appointment(s)/Referral(s): Eliseo Carrera MD [Primary Care Provider] - 1-2 days (The office is on lunch please call and make follow up appointment.) Patient Instructions/Handouts: Anemia (DC) Activity/Diet/Wound Care/Special Instructions: Please see your oncologist. Discharge Disposition: HOME SELF-CARE
== END 2023-07-05 14:12 | disposition home or self-care (01) | DRG 150 ==
LOC: EC 11:51 → 3SCARD 17:33 → 5NMEDONC 07-03 10:04
PROVIDERS: ADMIT Internal Medicine; ATTEND Internal Medicine
PROC: 30233N1 Transfusion of Nonautologous Red Blood Cells into Peripheral Vein, Percutaneous Approach (ICD-10-PCS; principal; 2023-07-02)
PROC: 6A550Z2 Pheresis of Platelets, Single (ICD-10-PCS; 2023-07-04)
DX: R04.0 Epistaxis (principal); D61.810 Antineoplastic chemotherapy induced pancytopenia; D61.818 Other pancytopenia; D62 Acute posthemorrhagic anemia; C56.9 Malignant neoplasm of unspecified ovary; I42.8 Other cardiomyopathies; I50.22 Chronic systolic (congestive) heart failure; E22.2 Syndrome of inappropriate secretion of antidiuretic hormone; R18.8 Other ascites; I11.0 Hypertensive heart disease with heart failure; F17.210 Nicotine dependence, cigarettes, uncomplicated; E78.5 Hyperlipidemia, unspecified; Z87.19 Personal history of other diseases of the digestive system; Z90.710 Acquired absence of both cervix and uterus; T45.1X5A Adverse effect of antineoplastic and immunosuppressive drugs, initial encounter; X58.XXXA Exposure to other specified factors, initial encounter; K21.9 Gastro-esophageal reflux disease without esophagitis; Z79.84 Long term (current) use of oral hypoglycemic drugs; Z79.82 Long term (current) use of aspirin; Z85.43 Personal history of malignant neoplasm of ovary; Z79.899 Other long term (current) drug therapy; Z90.5 Acquired absence of kidney; C80.1 Malignant (primary) neoplasm, unspecified
CPT/HCPCS: 36415; 36430; 80048; 80053; 83036; 85025; 85610; 85730; 86850; 86900; 86901; 86920; 99291

== ENCOUNTER → 2023-10-24 | Outpatient (CLI) | payer MEDICARE ==
--- NOTE | 2023-10-26 10:13 | MM ---
Reason for Exam: Screening (asymptomatic). Last screening mammogram was performed 12 month(s) ago. Patient History: Menarche at age 12. First Full-Term at age 23. Left ovary removed at age 66. Right ovary removed at age 66. Hysterectomy at age 66. Postmenopausal. Ovarian cancer, age 66. Previous chemotherapy at age 66. Risk Values: Jenna 5 year model risk: 1.7%. NCI Lifetime model risk: 4.7%. Prior Study Comparison: 10/20/2020 Bilateral Screening Mammogram, [facility]. 10/21/2021 Bilateral Screening Mammogram, [facility]. 10/22/2022 Bilateral MG 3D screening mammo w/cad, [facility]. Tissue Density: The breasts are heterogeneously dense, which may obscure small masses. Findings: Analyzed By CAD. There is no suspicious group of microcalcifications or new suspicious mass. Overall Assessment: Negative, BI-RAD 1 Management: Screening Mammogram of both breasts in [address] [facility] will attempt to contact patient to return for supplemental views and ultrasound if indicated. Patient should continue monthly self-breast exams. A clinical breast exam by your physician is recommended on an annual basis. This exam should not preclude additional follow-up of suspicious palpable abnormalities. Note on Jenna scores and lifetime risk: 1. A Jenna score greater than 3% is considered moderate risk. If this is the case, consider specialist referral to assess eligibility for a risk reducing agent. 2. If overall lifetime risk for the development of breast cancer is 20% or higher, the patient may qualify for future screening with alternating mammogram and breast MRI. Electronically signed and approved by: Guido Carlson DO
== END | disposition home or self-care (01) ==
LOC: RADMAMWWP 07:54
PROVIDERS: ATTEND Internal Medicine
DX: Z12.31 Encounter for screening mammogram for malignant neoplasm of breast (principal); Z78.0 Asymptomatic menopausal state
CPT/HCPCS: 77063; 77067

== ENCOUNTER → 2023-11-04 | Outpatient (CLI) | payer MEDICARE ==
--- NOTE | 2023-11-04 13:44 | XR ---
EXAMINATION TYPE: XR humerus RT DATE OF EXAM: 11/04/2023 COMPARISON: None HISTORY: Pain TECHNIQUE: 2 view right humerus FINDINGS: Joint spaces are preserved. No acute fractures or dislocations evident. Follow up exams can be performed 7-10 days from acute trauma for continued pain. IMPRESSION: 1. No acute osseous abnormality right humerus
== END | disposition home or self-care (01) ==
LOC: RADXRMAIN 09:31
PROVIDERS: ATTEND Internal Medicine
DX: M79.601 Pain in right arm (principal)

== ENCOUNTER → 2023-11-28 | Outpatient (CLI) | payer MEDICARE ==
--- NOTE | 2023-11-30 11:17 | CT ---
EXAMINATION TYPE: CT iac w con DATE OF EXAM: 11/28/2023 COMPARISON: None HISTORY: Pulsatile tinnitus CT DLP: 206 mGycm Automated exposure control for dose reduction was used. CONTRAST: CT scan of the IACs is performed with IV Contrast, patient injected with 100 mL of Isovue 300. FINDINGS: The external auditory canals are patent bilaterally. Mastoid air cells show no evidence of abnormal opacification bilaterally. The middle ear ossicles are symmetric and unremarkable. There is no evidence of suspicious surrounding soft tissue density to suggest cholesteatoma. The scutum is preserved bilaterally. The cochlea and the semicircular canals are symmetric and unremarkable. Ves tibular aqueduct and internal carotid canal appear unremarkable. Temporomandibular joints are mainta ined bilaterally. Mild chronic mucosal thickening of the maxillary sinuses and ethmoid air cells. IMPRESSION: No significant abnormality seen to account for patient's symptoms.
== END | disposition home or self-care (01) ==
LOC: RADPROMAIN 08:04
PROVIDERS: ATTEND Otolaryngology
DX: H93.A3 Pulsatile tinnitus, bilateral (principal)
CPT/HCPCS: 70481; J1642; Q9967

== ENCOUNTER 2024-01-10 08:22 | Inpatient (IN) | payer MEDICARE ==
[2024-01-10 09:30] LABS: Basophils % (A) 0 %; Eosinophils # (A) 0.1 k/uL (0-0.7); Eosinophils % (A) 1 %; HCT 32.5 % (34.0-46.0); Hypochromasia Slight; Lymphocytes # (A) 1.5 k/uL (1.0-4.8); Lymphocytes % (A) 17 %; MCH 31.2 pg (25.0-35.0); MCHC 30.7 g/dL (31.0-37.0); MCV 101.7 fL (80.0-100.0); Macrocytosis Slight; Mean Platelet Volume 10.2; Monocytes # (A) 0.4 k/uL (0-1.0); Monocytes % (A) 5 %; Neutrophils # (A) 6.5 k/uL (1.3-7.7); Neutrophils % (A) 75 %; Platelet Count 119 k/uL (150-450); RBC 3.19 m/uL (3.80-5.40); RDW 14.8 % (11.5-15.5); WBC 8.7 k/uL (3.8-10.6)
[2024-01-10 09:38] LABS: ALT 48 U/L (4-34); AST 45 U/L (14-36); African American GFR (CKD) 68 (>60 ml/min/1.73 sqM); Albumin 3.6 g/dL (3.5-5.0); Alkaline Phosphatase 61 U/L (38-126); Anion Gap 7 mmol/L; Blood Urea Nitrogen 22 mg/dL (7-17); Calcium 8.5 mg/dL (8.4-10.2); Carbon Dioxide 20 mmol/L (22-30); Chloride 105 mmol/L (98-107); Glucose 111 mg/dL (74-99); Non-African American GFR(CKD) 59 (>60 ml/min/1.73 sqM); Potassium 4.3 mmol/L (3.5-5.1); Sodium 132 mmol/L (137-145); Total Bilirubin 1.1 mg/dL (0.2-1.3); Total Protein 6.6 g/dL (6.3-8.2)
--- NOTE | 2024-01-10 09:51 | XR ---
EXAMINATION TYPE: XR chest 2V DATE OF EXAM: 01/10/2024 COMPARISON: 02/13/2023 HISTORY: 73-year-old female shortness of breath, difficulty breathing TECHNIQUE: AP and lateral views FINDINGS: Right anterior chest wall injection port with catheter tip at the lower SVC. Heart mildly enlarged. M ild interstitial/vascular prominence but with improvement compared to prior. No pleural effusion or c onsolidation. IMPRESSION: Mild cardiomegaly. Otherwise, no definite acute process.
[2024-01-10 10:07] LABS: NT-Pro-B-Type Natriuretic Pept 59900 pg/mL
--- NOTE | 2024-01-10 10:16 | ED ---
SOB HPI - General Chief Complaint: Shortness of Breath Stated Complaint: hard time breathing Time Seen by Provider: 01/10/24 08:30 Source: patient Mode of arrival: wheelchair Limitations: no limitations - History of Present Illness Initial Comments: 73-year-old female with past medical history of ovarian cancer who presents emergency department reporting shortness of breath. States she was hospitalized 2 weeks ago at [facility]. She had a CHF exacerbation and had a thoracentesis. She states that she began having increased work of breathing last night. She does not take a diuretic at home. She admits to some lower extremity swelling. Patient originally did not have any chest pain however did develop chest pain throughout her stay in the emergency department. Denies fevers, chills or cough. Pain goes straight through to the back. Denies history of dissection. No numbness, tingling or weakness in her extremities. No other alleviating, precipitating modifying factors - Related Data Home Medications Medication Instructions Recorded Confirmed Pantoprazole Sodium [Protonix] 20 mg PO BID 02/13/23 01/16/24 Rosuvastatin Calcium 5 mg PO DAILY 02/13/23 01/16/24 ALPRAZolam [Xanax] 0.25 mg PO DAILY PRN 07/02/23 01/16/24 Iron 142mg (45fe) Tablet 1 tab PO DAILY 07/02/23 01/16/24 Magnesium Oxide [Mag-Ox] 400 mg PO BID 07/02/23 01/16/24 Spironolactone [Aldactone] 12.5 mg PO DAILY 07/02/23 01/16/24 Sennosides [Senokot] 17.2 mg PO DAILY 01/10/24 01/16/24 Sertraline [Zoloft] 25 mg PO DAILY 01/10/24 01/16/24 Previous Rx's Medication Instructions Recorded Dapagliflozin Propanediol [Farxiga] 5 mg PO DAILY #60 tab 01/15/24 Furosemide [Lasix] 20 mg PO DAILY #60 tab 01/15/24 Metoprolol Succinate (ER) [Toprol 25 mg PO DAILY #60 tab 01/15/24 XL] lisinopriL [Zestril] 2.5 mg PO DAILY #60 tab 01/15/24 Allergies Allergy/AdvReac Type Severity Reaction Status Date / Time No Known Allergies Allergy Verified 01/10/24 11:09 Review of Systems ROS Statement: Those systems with pertinent positive or pertinent negative responses have been documented in the HPI. ROS Other: All systems not noted in ROS Statement are negative. Past Medical History Past Medical History: Cancer, Heart Failure, Hypertension, Osteoarthritis (OA) Additional Past Medical History / Comment(s): Hx ovarian CA, constipation, urinary leakage, anemia History of Any Multi-Drug Resistant Organisms: None Reported Past Surgical History: Appendectomy, Bladder Surgery, Hysterectomy Additional Past Surgical History / Comment(s): bladder suspension, lymph nodes, spleen and part of bowel removed with hysterectomy Past Anesthesia/Blood Transfusion Reactions: No Reported Reaction Past Psychological History: No Psychological Hx Reported Smoking Status: Never smoker Past Alcohol Use History: None Reported Past Drug Use History: None Reported - Past Family History Brother(s) Family Medical History: Cancer Mother Family Medical History: Cancer Additional Family Medical History / Comment(s): Bone cancer Father History Unknown: Yes Family Medical History: Cancer General Exam Limitations: no limitations General appearance: alert, in no apparent distress Head exam: Present: atraumatic, normocephalic, normal inspection Eye exam: Present: normal appearance, PERRL, EOMI. Absent: scleral icterus, conjunctival injection, periorbital swelling ENT exam: Present: normal exam, mucous membranes moist Neck exam: Present: normal inspection. Absent: tenderness, meningismus, lymphadenopathy Respiratory exam: Present: decreased breath sounds (Right base). Absent: respiratory distress, wheezes, rales, rhonchi, stridor Cardiovascular Exam: Present: regular rate, normal rhythm, normal heart sounds. Absent: systolic murmur, diastolic murmur, rubs, gallop, clicks GI/Abdominal exam: Present: soft, normal bowel sounds. Absent: distended, tenderness, guarding, rebound, rigid Extremities exam: Present: normal inspection, full ROM, normal capillary refill. Absent: tenderness, pedal edema, joint swelling, calf tenderness Back exam: Present: normal inspection Neurological exam: Present: alert, oriented X3, CN II-XII intact Psychiatric exam: Present: normal affect, normal mood Skin exam: Present: warm, dry, intact, normal color. Absent: rash Course Vital Signs 01/10/24 01/10/24 01/10/24 08:25 10:35 12:03 Temperature 97.9 F Pulse Rate 83 71 74 Respiratory 24 16 19 Rate Blood Pressure 154/88 146/91 149/87 O2 Sat by Pulse 92 L 96 94 L Oximetry 01/10/24 01/10/24 01/11/24 16:02 22:14 07:56 Temperature Pulse Rate 67 67 71 Respiratory 18 18 18 Rate Blood Pressure 150/83 154/80 O2 Sat by Pulse 97 97 Oximetry 01/11/24 01/11/24 01/11/24 14:22 19:53 21:14 Temperature Pulse Rate 61 61 62 Respiratory 16 20 16 Rate Blood Pressure 115/72 101/67 115/65 O2 Sat by Pulse 97 95 100 Oximetry Medical Decision Making - Medical Decision Making Was pt. sent in by a medical professional or institution (, PA, SANITARY ENGINEERING TEACHER, urgent care, hospital, or penitentiary...) When possible be specific @ -No Did you speak to anyone other than the patient for history (EMS, parent, family, police, friend...)? What history was obtained from this source @ -Spoke with the patient's daughter Did you review nursing and triage notes (agree or disagree)? Why? @ -I reviewed and agree with nursing and triage notes Were old charts reviewed (outside hosp., previous admission, EMS record, old EKG, old radiological studies, urgent care reports/EKG's, penitentiary records)? Report findings @ -No old charts were reviewed Differential Diagnosis (chest pain, altered mental status, abdominal pain women, abdominal pain men, vaginal bleeding, weakness, fever, dyspnea, syncope, headache, dizziness, GI bleed, back pain, seizure, CVA, palpatations, mental health, musculoskeletal)? @ -Differential Chest Pain: Stable Angina, Unstable Angina, STEMI, NSTEMI Aortic Dissection, Pneumothorax, Musculoskeletal, Esophageal Spasm GERD, Cholecystitis, Pancreatitis, Zoster, this is not meant to be an all-inclusive list. EKG interpreted by me (3pts min.). @ -Yes at 839 am demonstrates sinus rhythm with a rate of 77. NE interval 175. QRS 91. QTc of 426. No acute ST segment elevations or depressions Repeat EKG done at 1022 demonstrates sinus rhythm with a rate of 74. NE interval 172. QRS 109. QTc of 430. No acute ST segment elevations or depressions X-rays interpreted by me (1pt min.). @ -Yes and demonstrates pleural effusion CT interpreted by me (1pt min.). @ -Yes and demonstrates pleural effusion with possible PE U/S interpreted by me (1pt. min.). @ -None done What testing was considered but not performed or refused? (CT, X-rays, U/S, labs)? Why? @ -None What meds were considered but not given or refused? Why? @ -None Did you discuss the management of the patient with other professionals (professionals i.e. DrKenisha, PA, SANITARY ENGINEERING TEACHER, lab, RT, psych nurse, social sciences professor, spreader box operator, teacher, family preservation officer, casework manager)? Give summary @ -Spoke with Dr. Grajeda for admission Was smoking cessation discussed for >3mins.? @ -No Was critical care preformed (if so, how long)? @ -Yes, 35 minutes for congestive heart failure exacerbation with possible PE Were there social determinants of health that impacted care today? How? (Homelessness, low income, unemployed, alcoholism, drug addiction, tr ansportation, low edu. Level, literacy, decrease access to med. care, fci, rehab)? @ -No Was there de-escalation of care discussed even if they declined (Discuss DNR or withdrawal of care, Hospice)? DNR status @ -No What co-morbidities impacted this encounter? (DM, HTN, Smoking, COPD, CAD, Cancer, CVA, ARF, Chemo, Hep., AIDS, mental health diagnosis, sleep apnea, morbid obesity)? @ -Ovarian cancer Was patient admitted / discharged? Hospital course, mention meds given and route, prescriptions, significant lab abnormalities, going to OR and other pertinent info. @ -Upon arrival patient seen and evaluated in room 2. Thorough history and physical exam was performed. IV access was established and laboratory studies are conducted. Chest x-ray was performed. Patient reports to chest pain radiating straight through to her back. She is sent for CT which demonstrates no dissection. Patient has moderate pleural effusion with possible PE. Patient is unsure of her previous diagnosis and therefore heparin was restarted until paperwork can be obtained from outside hospital. Patient will be admitted to Dr. Grajeda who accepted admission Undiagnosed new problem with uncertain prognosis? @ -No Drug Therapy requiring intensive monitoring for toxicity (Heparin, Nitro, Insulin, Cardizem)? @ -Heparin Were any procedures done? @ -No Diagnosis/symptom? @ -Acute respiratory insufficiency, acute exacerbation of CHF, moderate pleural effusion, possible PE Acute, or Chronic, or Acute on Chronic? @ -Acute on chronic Uncomplicated (without systemic symptoms) or Complicated (systemic symptoms)? @ -Complicated Side effects of treatment? @ -No Exacerbation, Progression, or Severe Exacerbation? @ -Yes Poses a threat to life or bodily function? How? (Chest pain, [place], PR, pneumonia, PE, COPD, DKA, ARF, appy, cholecystitis, CVA, Diverticulitis, Homicidal, Suicidal, threat to staff... and all critical care pts) @ -Yes as patient has heart failure with possible pulmonary embolism - Lab Data Result diagrams: 01/11/24 12:30 01/15/24 07:31 Lab Results 01/10/24 01/10/24 01/10/24 Range/Units 09:13 09:13 09:13 WBC 8.7 (3.8-10.6) k/uL RBC 3.19 L (3.80-5.40) m/uL Hgb 10.0 L (11.4-16.0) gm/dL Hct 32.5 L (34.0-46.0) % MCV 101.7 H (80.0-100.0) fL MCH 31.2 (25.0-35.0) pg MCHC 30.7 L (31.0-37.0) g/dL RDW 14.8 (11.5-15.5) % Plt Count 119 L (150-450) k/uL MPV 10.2 Neutrophils % 75 % Lymphocytes % 17 % Monocytes % 5 % Eosinophils % 1 % Basophils % 0 % Neutrophils # 6.5 (1.3-7.7) k/uL Lymphocytes # 1.5 (1.0-4.8) k/uL Monocytes # 0.4 (0-1.0) k/uL Eosinophils # 0.1 (0-0.7) k/uL Basophils # 0.0 (0-0.2) k/uL Differential Comment Manual Slide Review Performed Hypochromasia Slight Poikilocytosis (manual Present Macrocytosis Slight PT (10.0-12.5) sec INR (<1.2) APTT (22.0-30.0) sec Sodium 132 L (137-145) mmol/L Potassium 4.3 (3.5-5.1) mmol/L Chloride 105 (98-107) mmol/L Carbon Dioxide 20 L (22-30) mmol/L Anion Gap 7 mmol/L BUN 22 H (7-17) mg/dL Creatinine 0.97 (0.52-1.04) mg/dL Est GFR (CKD-EPI)AfAm 68 (>60 ml/min/1.73 sqM) Est GFR (CKD-EPI)NonAf 59 (>60 ml/min/1.73 sqM) Glucose 111 H (74-99) mg/dL Plasma Lactic Acid Lennox 1.3 (0.7-2.0) mmol/L Calcium 8.5 (8.4-10.2) mg/dL Total Bilirubin 1.1 (0.2-1.3) mg/dL AST 45 H (14-36) U/L ALT 48 H (4-34) U/L Alkaline Phosphatase 61 (38-126) U/L Troponin I (0.000-0.034) ng/mL NT-Pro-B Natriuret Pep 12183 pg/mL Total Protein 6.6 (6.3-8.2) g/dL Albumin 3.6 (3.5-5.0) g/dL 01/10/24 01/10/24 01/10/24 Range/Units 09:13 15:02 15:02 WBC (3.8-10.6) k/uL RBC (3.80-5.40) m/uL Hgb (11.4-16.0) gm/dL Hct (34.0-46.0) % MCV (80.0-100.0) fL MCH (25.0-35.0) pg MCHC (31.0-37.0) g/dL RDW (11.5-15.5) % Plt Count (150-450) k/uL MPV Neutrophils % % Lymphocytes % % Monocytes % % Eosinophils % % Basophils % % Neutrophils # (1.3-7.7) k/uL Lymphocytes # (1.0-4.8) k/uL Monocytes # (0-1.0) k/uL Eosinophils # (0-0.7) k/uL Basophils # (0-0.2) k/uL Differential Comment Manual Slide Review Hypochromasia Poikilocytosis (manual Macrocytosis PT 12.8 H (10.0-12.5) sec INR 1.2 H (<1.2) APTT 194.8 H* (22.0-30.0) sec Sodium (137-145) mmol/L Potassium (3.5-5.1) mmol/L Chloride (98-107) mmol/L Carbon Dioxide (22-30) mmol/L Anion Gap mmol/L BUN (7-17) mg/dL Creatinine (0.52-1.04) mg/dL Est GFR (CKD-EPI)AfAm (>60 ml/min/1.73 sqM) Est GFR (CKD-EPI)NonAf (>60 ml/min/1.73 sqM) Glucose (74-99) mg/dL Plasma Lactic Acid Lennox (0.7-2.0) mmol/L Calcium (8.4-10.2) mg/dL Total Bilirubin (0.2-1.3) mg/dL AST (14-36) U/L ALT (4-34) U/L Alkaline Phosphatase (38-126) U/L Troponin I 0.026 0.037 H* (0.000-0.034) ng/mL NT-Pro-B Natriuret Pep pg/mL Total Protein (6.3-8.2) g/dL Albumin (3.5-5.0) g/dL 01/10/24 Range/Units 18:40 WBC (3.8-10.6) k/uL RBC (3.80-5.40) m/uL Hgb (11.4-16.0) gm/dL Hct (34.0-46.0) % MCV (80.0-100.0) fL MCH (25.0-35.0) pg MCHC (31.0-37.0) g/dL RDW (11.5-15.5) % Plt Count (150-450) k/uL MPV Neutrophils % % Lymphocytes % % Monocytes % % Eosinophils % % Basophils % % Neutrophils # (1.3-7.7) k/uL Lymphocytes # (1.0-4.8) k/uL Monocytes # (0-1.0) k/uL Eosinophils # (0-0.7) k/uL Basophils # (0-0.2) k/uL Differential Comment Manual Slide Review Hypochromasia Poikilocytosis (manual Macrocytosis PT (10.0-12.5) sec INR (<1.2) APTT (22.0-30.0) sec Sodium (137-145) mmol/L Potassium (3.5-5.1) mmol/L Chloride (98-107) mmol/L Carbon Dioxide (22-30) mmol/L Anion Gap mmol/L BUN (7-17) mg/dL Creatinine (0.52-1.04) mg/dL Est GFR (CKD-EPI)AfAm (>60 ml/min/1.73 sqM) Est GFR (CKD-EPI)NonAf (>60 ml/min/1.73 sqM) Glucose (74-99) mg/dL Plasma Lactic Acid Lennox (0.7-2.0) mmol/L Calcium (8.4-10.2) mg/dL Total Bilirubin (0.2-1.3) mg/dL AST (14-36) U/L ALT (4-34) U/L Alkaline Phosphatase (38-126) U/L Troponin I 0.036 H* (0.000-0.034) ng/mL NT-Pro-B Natriuret Pep pg/mL Total Protein (6.3-8.2) g/dL Albumin (3.5-5.0) g/dL Disposition Clinical Impression: Ovarian cancer, Pleural effusion, Chest pain, Shortness of breath, Pulmonary embolism Disposition: ADMITTED IP TO THIS [facility] Condition: Stable Is patient prescribed a controlled substance at d/c from ED?: No Time of Disposition: 11:55 Decision to Admit Reason: Admit from EC Decision Date: 01/10/24 Decision Time: 11:55
[2024-01-10] MEDS: MORPHINE SULFATE 4 MG/ML SYRINGE IVP STA (10:33)
[2024-01-10 10:46] LABS: Poikilocytosis (M) Present
--- NOTE | 2024-01-10 11:35 | CT ---
EXAMINATION TYPE: CT chest angio for PE CT DLP: 215.9 mGycm, Automated exposure control for dose reduction was used. DATE OF EXAM: 01/10/2024 11:02 AM COMPARISON: 02/13/2023 CLINICAL INDICATION:Female, 73 years old with history of chest pain, short of breath; Chest pain with SOB TECHNIQUE/CONTRAST: CTA scan of the thorax is performed without and with IV Contrast, patient injected with 100 ml mL of Isovue 370, MIP images are created and reviewed these are created on a separate workstation.. FINDINGS: Pulmonary Artery: Questionable filling defects in the right lower lobe and area of compression due to moderate right pleural effusion. Series 403 image 40 and series 401 image 95. There is no evidence a dditional for a filling defect within the pulmonary vasculature to suggest acute pulmonary embolism. The pulmonary artery is of normal size. Lungs/Pleura: Moderate pleural effusion with associated atelectasis. No evidence of focal consolidati on, left pleural effusion or pneumothorax. Airway: Large airways are patent. Heart: Heart is within normal limits for size. Mild coronary artery atherosclerosis. Vasculature: No evidence of aortic aneurysm. Mediastinum: No gross evidence of adenopathy. Musculoskeletal: No acute osseous abnormalities Soft Tissues/lymph nodes: Unremarkable. Lower neck: No significant findings. Upper Abdomen: No significant findings. IMPRESSION: 1. Cortical filling defects in the right lower lobe extending to the area of lung being compressed by moderate right pleural effusion. Findings could represent pulmonary embolus. No additional filling d efects visualized 2. Moderate pleural fusion with associated atelectasis.
[2024-01-10] MEDS ORDERED: NALOXONE 0.4 MG/ML 1 ML VIAL IV PRN (11:55)
[2024-01-10] MEDS ORDERED: HEPARIN SODIUM 1,000 UN/ML (10ML VL) IV PRN (12:07)
[2024-01-10] MEDS: HEPARIN SODIUM 1,000 UN/ML (10ML VL) IV ONE (12:32)
[2024-01-10] MEDS: FUROSEMIDE 10 MG/ML 10 ML VIAL IV STA (12:33)
[2024-01-10] MEDS: HEPARIN SOD,PORK IN 0.45% NACL 25,000 UNIT in 0.45% NACL 1 250ML.BAG IV SCH (12:33)
[2024-01-10 15:47] LABS: INR 1.2 (<1.2); Prothrombin Time 12.8 sec (10.0-12.5)
--- NOTE | 2024-01-10 16:00 | P.HPIM ---
History of Present Illness H&P Date: 01/10/24 Patient is a 73-year-old female with history of recurrent ovarian cancer, systolic heart failure with EF 25 to 30%, hypertension, GERD, dyslipidemia presenting with shortness of breath. She claims that her shortness of breath worsened over 2 weeks ago. She was recently admitted to [facility], and was noted to have pleural effusion which was drained. She was also noted to have a filling defect on CTA on 12/18, was started on heparin drip. Repeat CTA next day did not show the filling defect, likely secondary to a lymph node. Heparin drip was discontinued at that time. She has had progressive orthopnea with some lower extremity swelling, she normally able to sleep upright. She also has some lightheadedness, complaining of some abdominal and back pain as well. She denies any fevers or chills. She has some nonproductive cough. Denies any urinary or bowel complaints. Denies any nausea vomiting. Terms of her ovarian cancer, she is currently on maintenance therapy every 3 weeks. In the ED, temperature was 97.9, pulse 83, respiratory rate 24, blood pressure 154/88, saturating at 92% on room air. WBC 8.7, hemoglobin 10.0, platelet 119, sodium 132, creatinine 0.97, bicarb 20, anion gap 7, AST 45, ALT 48, troponin 0.026, proBNP 59,000, total bili 1.1. EKG showed sinus rhythm with nonspecific ST-T wave changes. Chest x-ray independently interpreted did not show any acute process. Chest CTA shows cortical filling defect in the right lower lobe could represent pulmonary embolism, moderate pleural effusion with associated atelectasis. Patient being admitted for acute shortness of breath in the setting of pleural effusion and suspected pulmonary embolism. Started on heparin drip. Pulmonology consulted. Pertinent positives and negatives as discussed in HPI, a complete review of systems was performed and all other systems are negative. Patient seen and examined at bedside. Vital signs reviewed General: nontoxic, no distress, appears at stated age Derm: warm, dry Head: atraumatic, normocephalic, symmetric Eyes: EOMI, no lid lag, anicteric sclera, pupils equal round reactive to light ENT: Nose and ears atraumatic Neck: No thyromegaly, supple Mouth: no lip lesion, mucus membranes moist Cardiovascular: S1S2 reg, no murmur, no edema Lungs: Bibasilar Rales, more prominent on the right, no wheeze, no accessory muscle use Abdominal: soft, nontender to palpation, no guarding, no appreciable organomegaly Ext: no gross muscle atrophy, muscle strength muscle strength 5 out of 5 in all 4 extremities, no contractures Neuro: CN II-XII grossly intact Psych: Alert, oriented, appropriate affect Assessment/Plan: Active: Acute systolic CHF exacerbation Moderate right-sided pleural effusion Right lower lobe pulmonary embolism less likely, as it was previously ruled out 2 weeks ago -Pulmonology consulted, pending recommendations -May need thoracentesis -Heparin drip discontinued -Was given 60 mg IV Lasix in the ED, continue 40 IV Lasix twice daily, monitor electrolytes and renal function -Continue telemetry monitoring -Intake and output -Daily weights Chronic: History of ovarian cancer, currently on maintenance therapy Hypertension Dyslipidemia GERD Depression The patient is admitted with an anticipated less than 2 midnight stay as observation status for evaluation of acute dyspnea. Surrogate decision-maker: Daughter CODE STATUS: Full code DVT prophylaxis: Heparin drip Anticipated discharge date: Pending clinical course Anticipated discharge place: Pending clinical course A total of 55 minutes was spent on the care of this complex patient more than 50% of the time was spent in counseling and care coordination. Past Medical History Past Medical History: Cancer, Heart Failure, Hypertension, Osteoarthritis (OA) Additional Past Medical History / Comment(s): Hx ovarian CA, constipation, urinary leakage, anemia History of Any Multi-Drug Resistant Organisms: None Reported Past Surgical History: Appendectomy, Bladder Surgery, Hysterectomy Additional Past Surgical History / Comment(s): bladder suspension, lymph nodes, spleen and part of bowel removed with hysterectomy Past Anesthesia/Blood Transfusion Reactions: No Reported Reaction Past Psychological History: No Psychological Hx Reported Smoking Status: Never smoker Past Alcohol Use History: None Reported Past Drug Use History: None Reported - Past Family History Brother(s) Family Medical History: Cancer Mother Family Medical History: Cancer Additional Family Medical History / Comment(s): Bone cancer Father History Unknown: Yes Family Medical History: Cancer Medications and Allergies Home Medications Medication Instructions Recorded Confirmed Type Pantoprazole Sodium [Protonix] 20 mg PO BID 02/13/23 01/10/24 History Rosuvastatin Calcium 5 mg PO DAILY 02/13/23 01/10/24 History Dapagliflozin Propanediol [Farxiga] 10 mg PO DAILY #30 tab 02/17/23 01/10/24 Rx ALPRAZolam [Xanax] 0.25 mg PO DAILY PRN 07/02/23 01/10/24 History Iron 142mg (45fe) Tablet 1 tab PO DAILY 07/02/23 01/10/24 History Magnesium Oxide [Mag-Ox] 400 mg PO BID 07/02/23 01/10/24 History Spironolactone [Aldactone] 12.5 mg PO DAILY 07/02/23 01/10/24 History carvediloL [Coreg] 6.25 mg PO BID-W/MEALS 07/02/23 01/10/24 History Sacubitril/Valsartan [Entresto 24 1 tab PO BID 01/10/24 01/10/24 History mg-26 mg Tablet] Sennosides [Senokot] 17.2 mg PO DAILY 01/10/24 01/10/24 History Sertraline [Zoloft] 25 mg PO DAILY 01/10/24 01/10/24 History Allergies Allergy/AdvReac Type Severity Reaction Status Date / Time No Known Allergies Allergy Verified 01/10/24 11:09 Physical Exam Vitals: Vital Signs Temp Pulse Resp BP Pulse Ox 01/10/24 12:03 74 19 149/87 94 L 01/10/24 10:35 71 16 146/91 96 01/10/24 08:25 97.9 F 83 24 154/88 92 L Intake and Output 01/10/24 01/10/24 01/10/24 06:59 14:59 22:59 Other: Weight 55.792 kg Results CBC & Chem 7: 01/10/24 09:13 01/10/24 09:13 Labs: Abnormal Lab Results - Last 24 Hours (Table) 01/10/24 01/10/24 Range/Units 09:13 09:13 RBC 3.19 L (3.80-5.40) m/uL Hgb 10.0 L (11.4-16.0) gm/dL Hct 32.5 L (34.0-46.0) % MCV 101.7 H (80.0-100.0) fL MCHC 30.7 L (31.0-37.0) g/dL Plt Count 119 L (150-450) k/uL Sodium 132 L (137-145) mmol/L Carbon Dioxide 20 L (22-30) mmol/L BUN 22 H (7-17) mg/dL Glucose 111 H (74-99) mg/dL AST 45 H (14-36) U/L ALT 48 H (4-34) U/L
[2024-01-10 16:04] LABS: Partial Thromboplastin Time 194.8 sec (22.0-30.0)
[2024-01-10] MEDS: MORPHINE SULFATE 4 MG/ML SYRINGE IV PRN (16:12)
[2024-01-10] MEDS: carvediloL 6.25 MG TAB PO SCH (16:52)
[2024-01-10] MEDS: FUROSEMIDE 10 MG/ML 4 ML VIAL IV SCH (22:21)
[2024-01-10] MEDS: SACUBITRIL/VALSARTAN 24 MG-26 MG TABLET PO SCH (23:23)
--- NOTE | 2024-01-11 06:56 | P.CNPUL ---
History of Present Illness Consult date: 01/11/24 Requesting physician: Sultana Edmond Reason for consult: other (Pleural effusion, questionable pulmonary embolism) Chief complaint: Shortness of breath History of present illness: Patient is a 73-year-old white female with past medical history significant for ovarian cancer status post total hysterectomy and chemotherapy, congestive heart failure, hypertension, hyperlipidemia. Of note, patient was recently hospitalized at [facility] approximately 2 weeks ago, she had a right- sided pleural effusion, and did have a thoracentesis. She was told that the fluid was because of heart failure. No reported history of metastasis within the chest. An echocardiogram done February, at our facility estimates a severely reduced ejection fraction of 25 to 30% as well as severe pulmonary hypertension and moderate to severe mitral regurgitation. While inpatient at [facility], she was reportedly also worked up for possible pulmonary embolism, which was apparently later ruled out. I do not have access to these records. Patient returns to our emergency department yesterday morning c omplaining of progressively worsening shortness of breath over the last couple weeks. She states that her shortness of breath is particularly bad when exerting herself or when lying flat. She wakes up in the middle night gasping for air. No associated lower extremity edema. She does not normally take Lasix outpatient. She has been experiencing some left-sided chest pain, which comes and goes, described as nonradiating, and associated with her shortness of breath. No heart palpitations or syncopal events. Admits becoming lightheadedness occasionally when standing. She does have a intermittent dry cough. No other infectious symptoms such as fever, sputum production, hemoptysis. Initial chest x-ray showed mild cardiomegaly and mild vascular congestion. No focal infiltrates, pneumothoraces, or obvious large pleural effusions. NT proBNP was significantly elevated at 59,900. There was a follow- up chest CTA identifying a moderate size right-sided pleural effusion with associated atelectasis. There was also questionable filling defects in the right lower lobe extending to the area of being compressed by the moderate right-sided pleural effusions. Unable to rule out pulmonary embolism. CBC on arrival: WBC count 8.7, hemoglobin 10, hematocrit 32.5, platelets 119,000. CMP on arrival: Sodium 132, potassium 4.3, chloride 105, serum bicarb 20, BUN 22, creatinine 0.97, glucose 111. LFTs mildly elevated. Lactic acid 1.3. Troponins 0.026, 0.037, and 0.036 respectively. Flat, not likely indicative of ACS. EKG shows normal sinus rhythm without any obvious acute ischemic changes. She is currently in the emergency department, room 3. She is resting comfortably on room air. No respiratory distress while at rest. She does endorse shortness of breath with any kind of exertion. Patient was previously started on a IV heparin infusion per protocol, later discontinued by admitting physician. Hemodynamically stable. Review of Systems REVIEW OF SYSTEMS: CONSTITUTIONAL: Denies any recent significant weight loss or weight gain. EYES: Denies change in vision. EARS, NOSE, MOUTH, THROAT: Denies headaches, denies sore throat. CARDIOVASCULAR: See HPI. RESPIRATORY: See HPI GASTROINTESTINAL: Denies change in appetite, abdominal pain, nausea and vomiting, or diarrhea GENITOURINARY: Denies hematuria, denies infections. MUSKULOSKELETAL: Denies pain, denies swelling. INTEGUMENTARY: Denies rash, denies eczema. NEUROLOGICAL: Denies recent memory loss, no recent seizure activity. PSYCHIATRIC: Denies anxiety, denies depression. HEMATOLOGIC/LYMPHATIC: Denies anemia, denies enlarged lymph node Past Medical History Past Medical History: Cancer, Heart Failure, Hypertension, Osteoarthritis (OA) Additional Past Medical History / Comment(s): Hx ovarian CA, constipation, urinary leakage, anemia History of Any Multi-Drug Resistant Organisms: None Reported Past Surgical History: Appendectomy, Bladder Surgery, Hysterectomy Additional Past Surgical History / Comment(s): bladder suspension, lymph nodes, spleen and part of bowel removed with hysterectomy Past Anesthesia/Blood Transfusion Reactions: No Reported Reaction Past Psychological History: No Psychological Hx Reported Smoking Status: Never smoker Past Alcohol Use History: None Reported Past Drug Use History: None Reported - Past Family History Brother(s) Family Medical History: Cancer Mother Family Medical History: Cancer Additional Family Medical History / Comment(s): Bone cancer Father History Unknown: Yes Family Medical History: Cancer Medications and Allergies Home Medications Medication Instructions Recorded Confirmed Type Pantoprazole Sodium [Protonix] 20 mg PO BID 02/13/23 01/10/24 History Rosuvastatin Calcium 5 mg PO DAILY 02/13/23 01/10/24 History Dapagliflozin Propanediol [Farxiga] 10 mg PO DAILY #30 tab 07/13/23 06/04/24 Rx ALPRAZolam [Xanax] 0.25 mg PO DAILY PRN 07/02/23 01/10/24 History Iron 142mg (45fe) Tablet 1 tab PO DAILY 07/02/23 01/10/24 History Magnesium Oxide [Mag-Ox] 400 mg PO BID 07/02/23 01/10/24 History Spironolactone [Aldactone] 12.5 mg PO DAILY 07/02/23 01/10/24 History carvediloL [Coreg] 6.25 mg PO BID-W/MEALS 07/02/23 01/10/24 History Sacubitril/Valsartan [Entresto 24 1 tab PO BID 01/10/24 01/10/24 History mg-26 mg Tablet] Sennosides [Senokot] 17.2 mg PO DAILY 01/10/24 01/10/24 History Sertraline [Zoloft] 25 mg PO DAILY 01/10/24 01/10/24 History Allergies Allergy/AdvReac Type Severity Reaction Status Date / Time No Known Allergies Allergy Verified 01/10/24 11:09 Physical Exam Vitals: Vital Signs Temp Pulse Resp BP Pulse Ox 01/10/24 22:14 67 18 01/10/24 16:02 67 18 150/83 97 01/10/24 12:03 74 19 149/87 94 L 01/10/24 10:35 71 16 146/91 96 01/10/24 08:25 97.9 F 83 24 154/88 92 L Intake and Output 01/10/24 01/10/24 01/11/24 14:59 22:59 06:59 Other: Weight 55.792 kg GENERAL EXAM: Alert, 73-year-old white female, on room air, comfortable in no apparent distress. HEAD: Normocephalic and atraumatic EYES: Normal reaction of pupils, equal size. NOSE: Clear with pink turbinates. THROAT: No erythema or exudates. NECK: No masses, no JVD. CHEST: No chest wall deformity. LUNGS: Equal air entry with diminished right basilar lung sounds and inspiratory crackles heard at the left base. No conversational dyspnea or accessory muscle use while at rest CVS: S1 and S2 normal with no soft systolic murmur murmur, regular rhythm. No other extra heart sounds ABDOMEN: No hepatosplenomegaly, active bowel sounds, no guarding or rigidity. SPINE: No scoliosis or deformity SKIN: No rashes CENTRAL NERVOUS SYSTEM: No focal deficits, tone is normal in all 4 extremities. EXTREMITIES: There is no peripheral edema, clubbing, or cyanosis. Peripheral pulses are intact. Results - Laboratory Findings CBC and BMP: 01/10/24 09:13 01/10/24 09:13 PT/INR, D-dimer PT 12.8 sec (10.0-12.5) H 01/10/24 15:02 INR 1.2 (<1.2) H 01/10/24 15:02 Abnormal lab findings: Abnormal Labs 01/10/24 01/10/24 01/10/24 09:13 09:13 15:02 RBC 3.19 L Hgb 10.0 L Hct 32.5 L MCV 101.7 H MCHC 30.7 L Plt Count 119 L PT INR APTT Sodium 132 L Carbon Dioxide 20 L BUN 22 H Glucose 111 H AST 45 H ALT 48 H Troponin I 0.037 H* 01/10/24 01/10/24 15:02 18:40 RBC Hgb Hct MCV MCHC Plt Count PT 12.8 H INR 1.2 H APTT 194.8 H* Sodium Carbon Dioxide BUN Glucose AST ALT Troponin I 0.036 H* - Diagnostic Findings Chest x-ray: image reviewed CT scan - chest: image reviewed Assessment and Plan Assessment: Acute dyspnea, likely secondary to exacerbation of systolic congestive heart failure and recurrent moderate right-sided pleural effusion. Chest CTA identified a questionable filling defect in the right lower lobe extending to the area of being compressed by the moderate right-sided pleural effusions. Unable to completely rule out pulmonary embolism, however, was felt to be less likely. Patient was initially started on IV heparin infusion per protocol, this has since been discontinued History of bilateral pleural effusions, with recent right-sided thoracentesis at outside facility Atypical chest pain, on the contralateral side Elevated troponins, flat not consistent with ACS History of ovarian cancer status post chemotherapy, follows at [facility] with her oncologist Dr. Dsouza History of total hysterectomy History of severe nonischemic cardiomyopathy, most recent available echocardiogram done February, estimates a severely reduced ejection fraction of 25 to 30%, as well as severe pulmonary hypertension, and moderate to severe mitral regurgitation. History of hypertension History of hyperlipidemia Plan: Patient's medications, labs, imaging reviewed Symptoms more likely explained by CHF exacerbation and patient's moderate right- sided pleural effusion. Obtain chest ultrasound with markings for possible thoracentesis. In the meantime agree with diuresis in the form of IV Lasix 40 mg twice daily. Follow-up echocardiogram is pending Patient's IV heparin infusion was previously stopped. Hemodynamically stable, currently on room air. We will continue to follow, and additional recommendations are forthcoming I have personally seen and examined the patient, performed the documentation and the assessment and plan as written. Number of minutes spent on the visit:20 Time with Patient: Greater than 30
[2024-01-11] MEDS: SPIRONOLACTONE 25 MG TAB PO SCH (07:42)
[2024-01-11] MEDS: PANTOPRAZOLE 40 MG TABLET PO SCH (07:42)
[2024-01-11] MEDS: ATORVASTATIN 10 MG TAB PO SCH (07:42)
[2024-01-11] MEDS: SENNOSIDES 8.6 MG TAB PO SCH (07:43)
[2024-01-11] MEDS: SERTRALINE 25 MG TAB PO SCH (07:43)
[2024-01-11] MEDS: ENOXAPARIN 40 MG/0.4 ML SYRINGE SQ SCH (07:45)
--- NOTE | 2024-01-11 09:00 | US ---
EXAMINATION TYPE: US chest DATE OF EXAM: 01/11/2024 COMPARISON: CT CLINICAL INDICATION: Female, 73 years old with history of right pleural effusion; right pleural effus ion TECHNIQUE: Targeted ultrasound of the posterior lower right hemithorax EXAM MEASUREMENTS: Right Pleural Effusion pocket size: 6.7 cm Right skin surface to fluid distance: 2.9 cm Right side marked for possible thoracentesis outside the dept. Left side NOT marked for possible thoracentesis outside the dept. Pulmonologists are able to review the images in the patient?s EMR. IMPRESSIONS: Small right pleural effusion.
[2024-01-11] MEDS: DAPAGLIFLOZIN PROPANEDIOL 10 MG TABLET PO SCH (09:03)
--- NOTE | 2024-01-11 10:13 | P.CRDCN ---
History of Present Illness Consult date: 01/11/24 Reason for Consult (text): Elevated troponins, CHF History of present illness: History of present illness: This is a 73-year-old female patient of Dr. Chen with past medical history of dyslipidemia, hypertension, nonischemic cardiomyopathy, left carotid bruit, ovarian cancer on maintenance therapy. We have been asked to evaluate the patie nt for elevated troponins and CHF. Patient states that she has had shortness of breath for a few weeks and worsening. 3 weeks ago she did have a large-volume thoracentesis done at [facility]. She was feeling that the shortness of breath was very similar to when she needed the thoracentesis and decided to come into the hospital. She also is complaining of back pain. She also has ankle edema. She has been on Lasix in the past but she states that her oncologist and Dr. Chen have been working with her medications as her electrolytes have been abnormal and she has currently off Lasix. Patient was given 1 dose of IV Lasix 60 mg and followed by Lasix 40 mg every 12 hours. She is seen today in the emergency center waiting for a bed on the cardiac stepdown unit. Pulmonary medicine is on consult. EKG sinus rhythm with no acute ST changes. Chest x-ray: Mild cardiomegaly. Otherwise no definite acute process. CTA of the chest revealed cortical filling defects in the right lower lobe exte nding to the area of lung being compressed by moderate right pleural effusions findings could represent pulmonary embolus. No additional filling defects visualized. Moderate pleural effusion with associated atelectasis. Chest ultrasound: Small right pleural effusion. Laboratory studies: WBC 8.7, hemoglobin 10, platelet count 119. INR 1.2. Sodium 132, potassium 4.3, BUN 22 and creatinine 0.97. Troponin 0.026, 0.037 and 0.036. AST 45, ALT 48. proBNP 59,900 Home cardiac medications: Iron 1 tablet daily, Coreg 6.25 mg twice daily, Farxiga 10 mg daily, magnesium oxide 400 mg twice daily, rosuvastatin 5 mg daily, Entresto 24 mg / 26 mg 1 tablet twice daily, spironolactone 12.5 mg daily. Echocardiogram performed 02/14/2023 revealed EF of 25 to 30%, severe pulmonary hypertension, moderate to severe mitral regurgitation. Repeat echocardiogram performed on 05/02/2023 in the office revealed EF of 35 to 40%, mild aortic regurgitation, moderate mitral regurgitation, moderate tricuspid regurgitation, PASP 46 mmHg, mild to moderate pulmonic regurgitation. Lexiscan Cardiolite SPECT stress test performed in the office on 04/20/2023 revealed nondiagnostic electrocardiographic stress testing. Abnormal myocardial perfusion imaging with fixed anterior apical wall defect and mild global hypokinesis. Findings suggestive of nonischemic cardiomyopathy. No evidence of stress-induced ischemia. Images were suboptimal because of significant uptake in the subdiaphragmatic area. Review Of Systems: At the time of my exam: CONSTITUTIONAL: Denies fever or chills. HEENT: Denies blurred vision, vision changes, or eye pain. Denies hemoptysis CARDIOVASCULAR: Denies chest pain. Denies orthopnea. Denies PND. Denies palpitations RESPIRATORY: Reports shortness of breath. GASTROINTESTINAL: Denies abdominal pain. Denies nausea or vomiting. HEMATOLOGIC: Denies bleeding disorders. GENITOURINARY: Denies any blood in urine. SKIN: Denies pruitis. Denies rash. Physical examination: Gen: This is a 73-year-old female in no acute distress VS: reviewed, blood pressure 154/80, heart rate 71, pulse ox 97% on room air. HEENT: Head is atraumatic, normocephalic. Pupils equal, round. Sclerae is anicteric. NECK: Supple. No JVD. LUNGS: Diminished at the bases, no wheezing. No intercostal retractions. HEART: Regular rate and rhythm. 2/6 systolic murmur. ABDOMEN: Soft No tenderness. EXTREMITIES: No pedal edema. No calf tenderness. NEUROLOGICAL: Patient is awake, alert and oriented x3. Assessment: Flat troponins not indicative of acute coronary syndrome Acute on chronic systolic heart failure Nonischemic cardiomyopathy Recent large-volume thoracentesis Ovarian cancer Pancytopenia Dyslipidemia Hypertension Plan: Resume patient's home cardiac medications Continue patient on IV Lasix 40 mg twice daily Monitor MILE, daily weights, electrolytes and renal function Obtain 2-D echocardiogram and Doppler study to assess cardiac structure and function Further recommendations to follow based upon clinical course Thank you kindly for this consultation. Nurse practitioner note has been reviewed, I agree with documented findings and plan of care. Patient was seen and examined. Past Medical History Past Medical History: Cancer, Heart Failure, Hypertension, Osteoarthritis (OA) Additional Past Medical History / Comment(s): Hx ovarian CA, constipation, urinary leakage, anemia History of Any Multi-Drug Resistant Organisms: None Reported Past Surgical History: Appendectomy, Bladder Surgery, Hysterectomy Additional Past Surgical History / Comment(s): bladder suspension, lymph nodes, spleen and part of bowel removed with hysterectomy Past Anesthesia/Blood Transfusion Reactions: No Reported Reaction Past Psychological History: No Psychological Hx Reported Smoking Status: Never smoker Past Alcohol Use History: None Reported Past Drug Use History: None Reported - Past Family History Brother(s) Family Medical History: Cancer Mother Family Medical History: Cancer Additional Family Medical History / Comment(s): Bone cancer Father History Unknown: Yes Family Medical History: Cancer Medications and Allergies Home Medications Medication Instructions Recorded Confirmed Type Pantoprazole Sodium [Protonix] 20 mg PO BID 02/13/23 01/10/24 History Rosuvastatin Calcium 5 mg PO DAILY 02/13/23 01/10/24 History Dapagliflozin Propanediol [Farxiga] 10 mg PO DAILY #30 tab 02/17/23 01/10/24 Rx ALPRAZolam [Xanax] 0.25 mg PO DAILY PRN 07/02/23 01/10/24 History Iron 142mg (45fe) Tablet 1 tab PO DAILY 07/02/23 01/10/24 History Magnesium Oxide [Mag-Ox] 400 mg PO BID 07/02/23 01/10/24 History Spironolactone [Aldactone] 12.5 mg PO DAILY 07/02/23 01/10/24 History carvediloL [Coreg] 6.25 mg PO BID-W/MEALS 07/02/23 01/10/24 History Sacubitril/Valsartan [Entresto 24 1 tab PO BID 01/10/24 01/10/24 History mg-26 mg Tablet] Sennosides [Senokot] 17.2 mg PO DAILY 01/10/24 01/10/24 History Sertraline [Zoloft] 25 mg PO DAILY 01/10/24 01/10/24 History Allergies Allergy/AdvReac Type Severity Reaction Status Date / Time No Known Allergies Allergy Verified 01/10/24 11:09 Physical Exam Vitals: Vital Signs Temp Pulse Resp BP Pulse Ox 01/11/24 07:56 71 18 154/80 97 01/10/24 22:14 67 18 01/10/24 16:02 67 18 150/83 97 01/10/24 12:03 74 19 149/87 94 L 01/10/24 10:35 71 16 146/91 96 01/10/24 08:25 97.9 F 83 24 154/88 92 L Results 01/10/24 09:13 01/10/24 09:13 Cardiac Enzymes 01/10/24 01/10/24 01/10/24 Range/Units 09:13 09:13 15:02 AST 45 H (14-36) U/L Troponin I 0.026 0.037 H* (0.000-0.034) ng/mL 01/10/24 Range/Units 18:40 AST (14-36) U/L Troponin I 0.036 H* (0.000-0.034) ng/mL Coagulation 01/10/24 Range/Units 15:02 PT 12.8 H (10.0-12.5) sec APTT 194.8 H* (22.0-30.0) sec CBC 01/10/24 Range/Units 09:13 WBC 8.7 (3.8-10.6) k/uL RBC 3.19 L (3.80-5.40) m/uL Hgb 10.0 L (11.4-16.0) gm/dL Hct 32.5 L (34.0-46.0) % Plt Count 119 L (150-450) k/uL Comprehensive Metabolic Panel 01/10/24 Range/Units 09:13 Sodium 132 L (137-145) mmol/L Potassium 4.3 (3.5-5.1) mmol/L Chloride 105 (98-107) mmol/L Carbon Dioxide 20 L (22-30) mmol/L BUN 22 H (7-17) mg/dL Creatinine 0.97 (0.52-1.04) mg/dL Glucose 111 H (74-99) mg/dL Calcium 8.5 (8.4-10.2) mg/dL AST 45 H (14-36) U/L ALT 48 H (4-34) U/L Alkaline Phosphatase 61 (38-126) U/L Total Protein 6.6 (6.3-8.2) g/dL Albumin 3.6 (3.5-5.0) g/dL Current Medications Generic Name Dose Route Start Last Admin Trade Name Freq PRN Reason Stop Dose Admin Alprazolam 0.25 mg 01/10/24 15:17 Alprazolam 0.25 Mg Tab PO DAILY PRN Anxiety Atorvastatin Calcium 10 mg 01/11/24 09:00 01/11/24 07:42 Atorvastatin 10 Mg Tab PO 10 mg DAILY WILIAM Administration Carvedilol 6.25 mg 01/10/24 17:30 01/10/24 16:52 Carvedilol 6.25 Mg Tab PO 6.25 mg BID-W/MEALS WILIAM Administration Enoxaparin Sodium 40 mg 01/11/24 09:00 01/11/24 07:45 Enoxaparin 40 Mg/0.4 Ml Syringe SQ 40 mg DAILY WILIAM Administration Furosemide 40 mg 01/10/24 21:00 01/11/24 07:44 Furosemide 10 Mg/Ml 4 Ml Vial IV 40 mg Q12HR WILIAM Administration Morphine Sulfate 4 mg 01/10/24 12:00 01/10/24 23:24 Morphine Sulfate 4 Mg/Ml Syringe IV 4 mg Q4HR PRN Administration Severe Pain (Scale 7 to 10) Naloxone HCl 0.2 mg 01/10/24 11:55 Naloxone 0.4 Mg/Ml 1 Ml Vial IV Q2M PRN Opioid Reversal Pantoprazole Sodium 40 mg 01/11/24 07:30 01/11/24 07:42 Pantoprazole 40 Mg Tablet PO 40 mg [id number] WILIAM Administration Sacubitril/Valsartan 1 each 01/10/24 21:00 01/11/24 07:46 Sacubitril/Valsartan 24 Mg-26 Mg Tablet PO 1 each BID WILIAM Administration Senna 17.2 mg 01/11/24 09:00 01/11/24 07:43 Sennosides 8.6 Mg Tab PO 17.2 mg DAILY WILIAM Administration Sertraline HCl 25 mg 01/11/24 09:00 01/11/24 07:43 Sertraline 25 Mg Tab PO 25 mg DAILY WILIAM Administration Spironolactone 12.5 mg 01/11/24 09:00 01/11/24 07:42 Spironolactone 25 Mg Tab PO 12.5 mg DAILY WILIAM Administration 01/10/24 09:13 01/10/24 09:13
[2024-01-11 13:13] LABS: Basophils # (A) 0.1 k/uL (0-0.2); Basophils % (A) 1 %; Eosinophils # (A) 0.4 k/uL (0-0.7); Eosinophils % (A) 5 %; HCT 37.8 % (34.0-46.0); HGB 11.8 gm/dL (11.4-16.0); Hypochromasia Slight; Lymphocytes # (A) 2.1 k/uL (1.0-4.8); Lymphocytes % (A) 25 %; MCH 31.4 pg (25.0-35.0); MCHC 31.3 g/dL (31.0-37.0); MCV 100.2 fL (80.0-100.0); Macrocytosis Slight; Mean Platelet Volume 10.2; Monocytes # (A) 0.7 k/uL (0-1.0); Monocytes % (A) 8 %; Neutrophils # (A) 4.8 k/uL (1.3-7.7); Neutrophils % (A) 59 %; Platelet Count 172 k/uL (150-450); RBC 3.77 m/uL (3.80-5.40); RDW 14.5 % (11.5-15.5); WBC 8.2 k/uL (3.8-10.6)
[2024-01-11 13:33] LABS: African American GFR (CKD) 47 (>60 ml/min/1.73 sqM); Anion Gap 7 mmol/L; Blood Urea Nitrogen 29 mg/dL (7-17); Calcium 9.1 mg/dL (8.4-10.2); Carbon Dioxide 32 mmol/L (22-30); Chloride 93 mmol/L (98-107); Glucose 166 mg/dL (74-99); Non-African American GFR(CKD) 41 (>60 ml/min/1.73 sqM); Sodium 132 mmol/L (137-145)
[2024-01-11 14:01] LABS: Magnesium 1.4 mg/dL (1.6-2.3); Potassium 3.8 mmol/L (3.5-5.1)
--- NOTE | 2024-01-11 14:34 | P.PN ---
Subjective Progress Note Date: 01/11/24 Hospital Course: Patient is a 73-year-old female with history of recurrent ovarian cancer, syst olic heart failure with EF 25 to 30%, hypertension, GERD, dyslipidemia presenting with shortness of breath. In the ED, temperature was 97.9, pulse 83, respiratory rate 24, blood pressure 154/88, saturating at 92% on room air. WBC 8.7, hemoglobin 10.0, platelet 119, sodium 132, creatinine 0.97, bicarb 20, anion gap 7, AST 45, ALT 48, troponin 0.026, proBNP 59,000, total bili 1.1. EKG showed sinus rhythm with nonspecific ST-T wave changes. Chest x-ray independently interpreted did not show any acute process. Chest CTA shows cortical filling defect in the right lower lobe could represent pulmonary embolism, moderate pleural effusion with associated atelectasis. Patient being admitted for acute shortness of breath in the setting of pleural effusion and suspected pulmonary embolism. Started on heparin drip. Pulmonology consulted. She was recently admitted to [facility], and was noted to have pleural effusion which was drained. She was also noted to have a filling defect on CTA on 12/18, was started on heparin drip. Repeat CTA next day did not show the filling defect, likely secondary to a lymph node. Heparin drip was discontinued at that time. Heparin drip again discontinued. Likely has acute CHF exacerbation. Has mildly elevated troponin. Cardiology also consulted. On IV Lasix. Subjective: Patient seen and examined at bedside. No acute events overnight. Breathing s lightly improved. Pertinent positives and negatives as discussed above, a complete review of systems was performed and all other systems are negative. Vitals Signs Reviewed. General: nontoxic, no distress, appears at stated age Derm: warm, dry Head: atraumatic, normocephalic, symmetric Eyes: EOMI, no lid lag, anicteric sclera, pupils equal round reactive to light ENT: Nose and ears atraumatic Neck: No thyromegaly, supple Mouth: no lip lesion, mucus membranes moist Cardiovascular: S1S2 reg, no murmur, no edema Lungs: Bibasilar Rales, more prominent on the right, no wheeze, no accessory mu scle use Abdominal: soft, nontender to palpation, no guarding, no appreciable organomegaly Ext: no gross muscle atrophy, muscle strength muscle strength 5 out of 5 in all 4 extremities, no contractures Neuro: CN II-XII grossly intact Psych: Alert, oriented, appropriate affect Data Reviewed Today: Pertinent Labs: Hemoglobin 11.8, sodium 132, bicarb 32, creatinine 1.32, magnesium 1.4 Imaging: Chest ultrasound small right pleural effusion Assessment and Plan: Active: Acute systolic CHF exacerbation Moderate right-sided pleural effusion Right lower lobe pulmonary embolism less likely, as it was previously ruled out 2 weeks ago Acute kidney injury Hypomagnesemia Elevated troponin, unlikely to be ACS -Pulmonology note reviewed, continue diuretics, pending chest ultrasound for possible thoracentesis -Cardiology note reviewed, continue diuretics, echocardiogram pending -Continuing IV Lasix 40 mg every 12 hours, monitor electrolytes and renal function -Continue telemetry monitoring -Intake and output -Daily weights -Discontinued Entresto due to RAVEN -Renal ultrasound ordered -2 g of IV magnesium given today Chronic: History of ovarian cancer, currently on maintenance therapy Hypertension Dyslipidemia GERD Depression DVT ppx: Lovenox Code status: Full code Anticipated discharge place: Pending clinical course Anticipated discharge time: Pending clinical course Objective - Vital Signs Vital signs: Vital Signs Temp 97.9 F 01/10/24 08:25 Pulse 61 01/11/24 14:22 Resp 16 01/11/24 14:22 BP 115/72 01/11/24 14:22 Pulse Ox 97 01/11/24 14:22 FiO2 Intake & Output 01/10/24 01/11/24 01/11/24 18:59 06:59 18:59 Weight 55.792 kg - Labs CBC & Chem 7: 01/11/24 12:30 01/11/24 12:30 Labs: Abnormal Lab Results - Last 24 Hours (Table) 01/10/24 01/10/24 01/10/24 Range/Units 15:02 15:02 18:40 RBC (3.80-5.40) m/uL MCV (80.0-100.0) fL PT 12.8 H (10.0-12.5) sec INR 1.2 H (<1.2) APTT 194.8 H* (22.0-30.0) sec Sodium (137-145) mmol/L Chloride (98-107) mmol/L Carbon Dioxide (22-30) mmol/L BUN (7-17) mg/dL Creatinine (0.52-1.04) mg/dL Glucose (74-99) mg/dL Magnesium (1.6-2.3) mg/dL Troponin I 0.037 H* 0.036 H* (0.000-0.034) ng/mL 01/11/24 01/11/24 Range/Units 12:30 12:30 RBC 3.77 L (3.80-5.40) m/uL MCV 100.2 H (80.0-100.0) fL PT (10.0-12.5) sec INR (<1.2) APTT (22.0-30.0) sec Sodium 132 L (137-145) mmol/L Chloride 93 L (98-107) mmol/L Carbon Dioxide 32 H (22-30) mmol/L BUN 29 H (7-17) mg/dL Creatinine 1.32 H (0.52-1.04) mg/dL Glucose 166 H (74-99) mg/dL Magnesium 1.4 L (1.6-2.3) mg/dL Troponin I (0.000-0.034) ng/mL
[2024-01-11] MEDS: MAGNESIUM SULFATE-D5W PMX 1 GM in DEXTROSE/WATER 1 100ML.BAG IVPB SCH (15:09)
--- NOTE | 2024-01-11 16:18 | US ---
EXAMINATION TYPE: US kidneys/renal and bladder DATE OF EXAM: 01/11/2024 COMPARISON: NONE CLINICAL INDICATION: Female, 73 years old with history of maame; EXAM MEASUREMENTS: Right Kidney: 10.0 x 4.3 x 4.1 cm Left Kidney: 9.9 x 4.5 x 4.7 cm Right Kidney: No hydronephrosis or masses seen Left Kidney: No hydronephrosis or masses seen Bladder: Non-distended There is no evidence for hydronephrosis at this point in time. No nephrolithiasis is seen. No nataliya s are identified. The urinary bladder is anechoic. Bilateral ureteral jets are seen. IMPRESSION: No evidence for obstructive uropathy.
--- NOTE | 2024-01-11 17:13 | CA ---
Transthoracic Echo Report Name: Veena Pimentel Age: 73 Gender: F : 1950 Exam Date: 01/11/2024 16:08 Exam Location: [facility] Ht (in): 62 Wt (lb): 123 Ordering Physician: Juan Carlos Grajeda MD Attending/Referring Phys: Hand Dry Cleaner Precious Manjarrez RDCS Procedure CPT: Indications: elevated trop Cardiac Hx: Technical Quality: Good Contrast 1: Definity Total Dose (mL): 2 Contrast 2: Total Dose (mL): MEASUREMENTS (Male / Female) Normal Values 2D ECHO LV Diastolic Diameter PLAX 5.2 cm 4.2 - 5.9 / 3.9 - 5.3 cm LV Systolic Diameter PLAX 4.3 cm IVS Diastolic Thickness 0.8 cm 0.6 - 1.0 / 0.6 - 0.9 cm LVPW Diastolic Thickness 0.9 cm 0.6 - 1.0 / 0.6 - 0.9 cm LV Relative Wall Thickness 0.3 RV Internal Dim ED PLAX 2.6 cm LVOT Diameter 1.8 cm LV Diastolic Volume MOD BP 171.2 cm??? 67 - 155 / 56 - 104 cm??? LV Systolic Volume MOD BP 123.5 cm??? 22 - 58 / 19 - 49 cm??? LV Ejection Fraction MOD BP 27.9 % >= 55 % LV Cardiac Index MOD BP 1826.4 cm???/min???m??? LV Diastolic Volume MOD 4C 185.3 cm??? LV Systolic Volume MOD 4C 125.3 cm??? LV Ejection Fraction MOD 4C 32.4 % LV Cardiac Index MOD 4C 2298.0 cm???/min???m??? LV Diastolic Length 4C 8.0 cm LV Systolic Length 4C 6.9 cm LV Diastolic Volume MOD 2C 155.5 cm??? LV Systolic Volume MOD 2C 113.7 cm??? LV Ejection Fraction MOD 2C 26.9 % LV Cardiac Index MOD 2C 1601.1 cm???/min???m??? LV Diastolic Length 2C 8.1 cm LV Systolic Length 2C 7.4 cm LA Volume 69.8 cm??? 18 - 58 / 22 - 52 cm??? LA Volume Index 44.6 cm???/m??? 16 - 28 cm???/m??? Ascending Aorta Diameter 3.2 cm DOPPLER AV Peak Velocity 155.7 cm/s AV Peak Gradient 9.7 mmHg AV Mean Velocity 101.3 cm/s AV Mean Gradient 4.6 mmHg AV Velocity Time Integral 32.8 cm LVOT Peak Velocity 99.5 cm/s LVOT Peak Gradient 4.0 mmHg LVOT Velocity Time Integral 18.7 cm LVOT Stroke Volume 49.7 cm??? LVOT Stroke Volume Index 32.0 ml/m??? LVOT Cardiac Index 1902.5 cm???/min???m??? AV Area Cont Eq vti 1.5 cm??? AV Area Cont Eq pk 1.7 cm??? MV Area PHT 4.9 cm??? Mitral E Point Velocity 77.9 cm/s Mitral A Point Velocity 62.9 cm/s Mitral E to A Ratio 1.2 MV Deceleration Time 153.3 ms TR Peak Velocity 210.6 cm/s TR Peak Gradient 17.7 mmHg PV Peak Velocity 65.3 cm/s PV Peak Gradient 1.7 mmHg FINDINGS Left Ventricle Left ventricular ejection fraction is estimated at 25-30 %. Severely increased left ventricular diastolic volume. Severely increased left ventricular systolic volume. Severely decreased left ventricular ejection fraction. Left ventricular wall thickness normal. Moderate to severely reduced global function. Right Ventricle Normal right ventricular size with mildly reduced function. Right Atrium Mild right atrial dilatation. Left Atrium Moderately increased left atrial volume. Mildly increased left atrial area. Mitral Valve Mitral valve thickened. No evidence for mitral valve prolapse. No mitral stenosis. [id number] mitral regurgitation. Aortic Valve Trileaflet aortic valve. No aortic stenosis. Trace to mild aortic regurgitation. Tricuspid Valve Structurally normal tricuspid valve. No tricuspid stenosis. Mild tricuspid regurgitation. Pulmonic Valve Structurally normal pulmonic valve. No pulmonic stenosis. Trace pulmonic regurgitation. Pericardium Minimal pericardial effusion located near the right atrium. Aorta Normal size aortic root and proximal ascending aorta. CONCLUSIONS Severe LV systolic dysfunction mild to moderate mitral regurgitation Mild aortic regurgitation Previewed by: Dr. Christopher Arenas MD (Electronically Signed) Final Date: 11 January 2024 17:12
[2024-01-12 09:08] LABS: African American GFR (CKD) 49 (>60 ml/min/1.73 sqM); Anion Gap 12 mmol/L; Blood Urea Nitrogen 29 mg/dL (7-17); Calcium 9.6 mg/dL (8.4-10.2); Carbon Dioxide 25 mmol/L (22-30); Chloride 95 mmol/L (98-107); Glucose 101 mg/dL (74-99); Magnesium 1.9 mg/dL (1.6-2.3); Non-African American GFR(CKD) 42 (>60 ml/min/1.73 sqM); Potassium 3.8 mmol/L (3.5-5.1); Sodium 132 mmol/L (137-145)
--- NOTE | 2024-01-12 12:09 | P.PN ---
Subjective Progress Note Date: 01/12/24 Principal diagnosis: Pleural effusion. Patient is a 73-year-old white female with past medical history significant for ovarian cancer status post total hysterectomy and chemotherapy, congestive heart failure, hypertension, hyperlipidemia. Of note, patient was recently hospitali zed at [facility] approximately 2 weeks ago, she had a right-sided pleural effusion, and did have a thoracentesis. She was told that the fluid was because of heart failure. No reported history of metastasis within the chest. An echocardiogram done February, at our facility estimates a severely reduced ejection fraction of 25 to 30% as well as severe pulmonary hypertension and moderate to severe mitral regurgitation. While inpatient at [facility], she was reportedly also worked up for possible pulmonary embolism, which was apparently later ruled out. I do not have access to these records. Patient returns to our emergency department yesterday morning complaining of progressiv jamal worsening shortness of breath over the last couple weeks. She states that her shortness of breath is particularly bad when exerting herself or when lying flat. She wakes up in the middle night gasping for air. No associated lower extremity edema. She does not normally take Lasix outpatient. She has been experiencing some left-sided chest pain, which comes and goes, described as nonradiating, and associated with her shortness of breath. No heart palpitations or syncopal events. Admits becoming lightheadedness occasionally when standing. She does have a intermittent dry cough. No other infectious symptoms such as fever, sputum production, hemoptysis. Initial chest x-ray showed mild cardiomegaly and mild vascular congestion. No focal infiltrates, pneumothoraces, or obvious large pleural effusions. NT proBNP was significantly elevated at 59,900. There was a follow-up chest CTA identifying a moderate size right-sided pleural effusion with associated atelectasis. There was also questionable filling defects in the right lower lobe extending to the area of being compressed by the moderate right-sided pleural effusions. Unable to rule out pulmonary embolism. CBC on arrival: WBC count 8.7, hemoglobin 10, hematocrit 32.5, platelets 119,000. CMP on arrival: Sodium 132, potassium 4.3, chloride 105, serum bicarb 20, BUN 22, creatinine 0.97, glucose 111. LFTs mildly elevated. Lactic acid 1.3. Troponins 0.026, 0.037, and 0.036 respectively. Flat, not likely indicative of ACS. EKG shows normal sinus rhythm without any obvious acute ischemic changes. She is currently in the emergency department, room 3. She is resting comfortably on room air. No respiratory distress while at rest. She does endorse shortness of breath with any kind of exertion. Patient was previously started on a IV heparin infusion per protocol, later discontinued by admitting physician. Hemodynamically stable. Progress note dated January 12, 2024. The patient is seen today in room 361. She is currently on room air. Not receiving any IV fluids. She has a very small pleural effusion. Not worth doing a thoracentesis in my opinion. She is not having any shortness of breath. The patient was seen in consultation yesterday. Please see the extensive note above. Current laboratory data includes a sodium 132, potassium 3.8, chlorides 95, CO2 25, anion gap 12, BUN 29, creatinine 1.28. Glucose was 101. Calcium 9.6, magnesium 1.9. The patient's N-terminal proBNP on admission was 59,000, 900. Objective - Vital Signs Vital signs: Vital Signs Temp 98.3 F 01/12/24 08:30 Pulse 74 01/12/24 12:00 Resp 16 01/12/24 12:00 BP 111/68 01/12/24 12:00 Pulse Ox 98 01/12/24 12:00 FiO2 Intake & Output 01/11/24 01/12/24 01/12/24 18:59 06:59 18:59 Weight 55.792 kg 49.5 kg Other: Voiding Method Toilet Toilet - Exam No acute distress, oriented 3. Patient is currently on room air. No respiratory distress. HEENT examination is grossly unremarkable. Mucous membranes are moist. No oral lesions. Neck supple. Full range of motion. No adenopathy thyromegaly or neck vein distention. Cardiovascular examination reveals regular rhythm rate. S1-S2 normal. No S3 or S4. No discernible murmur noted. Heart rate 74 bpm. Lungs reveal clear breath sounds. Breath sounds are equal bilaterally. No adventitious lung sounds including wheezes rhonchi or crackles. Room air saturation is 98%. Abdomen soft bowel sounds are heard. No masses or tenderness. Extremities are intact. No cyanosis clubbing or edema. Skin is without rash or lesion. Neurologic examination is brief but nonfocal. - Labs CBC & Chem 7: 01/11/24 12:30 01/12/24 07:18 Labs: Abnormal Lab Results - Last 24 Hours (Table) 01/11/24 01/11/24 01/12/24 Range/Units 12:30 12:30 07:18 RBC 3.77 L (3.80-5.40) m/uL MCV 100.2 H (80.0-100.0) fL Sodium 132 L 132 L (137-145) mmol/L Chloride 93 L 95 L (98-107) mmol/L Carbon Dioxide 32 H (22-30) mmol/L BUN 29 H 29 H (7-17) mg/dL Creatinine 1.32 H 1.28 H (0.52-1.04) mg/dL Glucose 166 H 101 H (74-99) mg/dL Magnesium 1.4 L (1.6-2.3) mg/dL Assessment and Plan Assessment: Acute dyspnea, likely secondary to exacerbation of systolic congestive heart failure and recurrent small /moderate right-sided pleural effusion. History of bilateral pleural effusions, with recent right-sided thoracentesis. Atypical chest pain. Elevated troponins, not consistent with ACS. History of ovarian cancer status post chemotherapy. History of total hysterectomy. History of severe nonischemic cardiomyopathy. Ejection fraction of 25 to 30%, as well as severe pulmonary hypertension, and moderate to severe mitral regurgitation. History of hypertension. History of hyperlipidemia. Plan: Plan dated January 12, 2024. The patient's ultrasound showed a small to moderate effusion. The patient does not need a thoracentesis at this time. She is currently asymptomatic. She is on room air. She is not having any respiratory issues or problems. In the future, if she does, at that time, we will do the thoracentesis. Labs, x-rays, medications are reviewed. Prognosis is guarded. We will continue to follow the patient, and make recommendations. Time with Patient: Less than 30
--- NOTE | 2024-01-12 13:49 | P.PN ---
Subjective Progress Note Date: 01/12/24 Hospital Course: Patient is a 73-year-old female with history of recurrent ovarian cancer, syst olic heart failure with EF 25 to 30%, hypertension, GERD, dyslipidemia presenting with shortness of breath. In the ED, temperature was 97.9, pulse 83, respiratory rate 24, blood pressure 154/88, saturating at 92% on room air. WBC 8.7, hemoglobin 10.0, platelet 119, sodium 132, creatinine 0.97, bicarb 20, anion gap 7, AST 45, ALT 48, troponin 0.026, proBNP 59,000, total bili 1.1. EKG showed sinus rhythm with nonspecific ST-T wave changes. Chest x-ray independently interpreted did not show any acute process. Chest CTA shows cortical filling defect in the right lower lobe could represent pulmonary embolism, moderate pleural effusion with associated atelectasis. Patient being admitted for acute shortness of breath in the setting of pleural effusion and suspected pulmonary embolism. Started on heparin drip. Pulmonology consulted. She was recently admitted to [facility], and was noted to have pleural effusion which was drained. She was also noted to have a filling defect on CTA on 12/18, was started on heparin drip. Repeat CTA next day did not show the filling defect, likely secondary to a lymph node. Heparin drip was discontinued at that time. Heparin drip again discontinued. Likely has acute CHF exacerbation. Has mildly elevated troponin. Cardiology also consulted. On IV Lasix. Subjective: Patient seen and examined at bedside. No acute events overnight. Breathing s lightly improved. Pertinent positives and negatives as discussed above, a complete review of systems was performed and all other systems are negative. Vitals Signs Reviewed. General: nontoxic, no distress, appears at stated age Derm: warm, dry Head: atraumatic, normocephalic, symmetric Eyes: EOMI, no lid lag, anicteric sclera, pupils equal round reactive to light ENT: Nose and ears atraumatic Neck: No thyromegaly, supple Mouth: no lip lesion, mucus membranes moist Cardiovascular: S1S2 reg, no murmur, no edema Lungs: Bibasilar Rales, more prominent on the right, no wheeze, no accessory mu scle use Abdominal: soft, nontender to palpation, no guarding, no appreciable organomegaly Ext: no gross muscle atrophy, muscle strength muscle strength 5 out of 5 in all 4 extremities, no contractures Neuro: CN II-XII grossly intact Psych: Alert, oriented, appropriate affect Data Reviewed Today: Pertinent Labs: Sodium 132, potassium 3.8, creatinine 1.28, magnesium 1.9 Imaging: Echo showed LVEF 25-30%, mild to mod regurgitation Assessment and Plan: Active: Acute systolic CHF exacerbation Moderate right-sided pleural effusion Right lower lobe pulmonary embolism less likely, as it was previously ruled out 2 weeks ago Acute kidney injury, stable Hypomagnesemia, resolved Elevated troponin, unlikely to be ACS -Adriana management with pulmonology, no plans for thoracentesis at this point. -Cardiology following -Continuing IV Lasix 40 mg every 12 hours, monitor electrolytes and renal functi on, continue IV for another day, transition to oral Lasix tomorrow -Renal function is now stable, maintain off of Entresto -Continue telemetry monitoring -Intake and output -Daily weights Chronic: History of ovarian cancer, currently on maintenance therapy Hypertension Dyslipidemia GERD Depression DVT ppx: Lovenox Code status: Full code Anticipated discharge place: Pending clinical course Anticipated discharge time: Pending clinical course Objective - Vital Signs Vital signs: Vital Signs Temp 98.3 F 01/12/24 08:30 Pulse 74 01/12/24 12:00 Resp 16 01/12/24 12:00 BP 111/68 01/12/24 12:00 Pulse Ox 98 01/12/24 12:00 FiO2 Intake & Output 01/11/24 01/12/24 01/12/24 18:59 06:59 18:59 Output Total 400 Balance -400 Weight 55.792 kg 49.5 kg Output: Urine 400 Other: Voiding Method Toilet Toilet - Labs CBC & Chem 7: 01/11/24 12:30 01/12/24 07:18 Labs: Abnormal Lab Results - Last 24 Hours (Table) 01/11/24 01/12/24 Range/Units 12:30 07:18 Sodium 132 L 132 L (137-145) mmol/L Chloride 93 L 95 L (98-107) mmol/L Carbon Dioxide 32 H (22-30) mmol/L BUN 29 H 29 H (7-17) mg/dL Creatinine 1.32 H 1.28 H (0.52-1.04) mg/dL Glucose 166 H 101 H (74-99) mg/dL Magnesium 1.4 L (1.6-2.3) mg/dL
--- NOTE | 2024-01-12 14:41 | P.PN ---
Subjective Progress Note Date: 01/12/24 Reason for Consult (text): Elevated troponins, CHF History of present illness: This is a 73-year-old female patient of Dr. Chen with past medical history of dyslipidemia, hypertension, nonischemic cardiomyopathy, left carotid bruit, ovarian cancer on maintenance therapy. We have been asked to evaluate the patient for elevated troponins and CHF. Patient states that she has had shortness of breath for a few weeks and worsening. 3 weeks ago she did have a large-volume thoracentesis done at [facility]. She was feeling that the shortness of breath was very similar to when she needed the thoracentesis and decided to come into the hospital. She also is complaining of back pain. She also has ankle edema. She has been on Lasix in the past but she states that her oncologist and Dr. Chen have been working with her medications as her electrolytes have been abnormal and she has currently off Lasix. Patient was given 1 dose of IV Lasix 60 mg and followed by Lasix 40 mg every 12 hours. She is seen today in the emergency center waiting for a bed on the cardiac stepdown unit. Pulmonary medicine is on consult. EKG sinus rhythm with no acute ST changes. Chest x-ray: Mild cardiomegaly. Otherwise no definite acute process. CTA of the chest revealed cortical filling defects in the right lower lobe extending to the area of lung being compressed by moderate right pleural effusions findings could represent pulmonary embolus. No additional filling defects visualized. Moderate pleural effusion with associated atelectasis. Chest ultrasound: Small right pleural effusion. Laboratory studies: WBC 8.7, hemoglobin 10, platelet count 119. INR 1.2. Sodium 132, potassium 4.3, BUN 22 and creatinine 0.97. Troponin 0.026, 0.037 and 0.036. AST 45, ALT 48. proBNP 59,900 Home cardiac medications: Iron 1 tablet daily, Coreg 6.25 mg twice daily, Farxiga 10 mg daily, magnesium oxide 400 mg twice daily, rosuvastatin 5 mg daily, Entresto 24 mg / 26 mg 1 tablet twice daily, spironolactone 12.5 mg daily. Echocardiogram performed 02/14/2023 revealed EF of 25 to 30%, severe pulmonary hypertension, moderate to severe mitral regurgitation. Repeat echocardiogram performed on 05/02/2023 in the office revealed EF of 35 to 40%, mild aortic regurgitation, moderate mitral regurgitation, moderate tricuspid regurgitation, PASP 46 mmHg, mild to moderate pulmonic regurgitation. Lexiscan Cardiolite SPECT stress test performed in the office on 04/20/2023 re vealed nondiagnostic electrocardiographic stress testing. Abnormal myocardial perfusion imaging with fixed anterior apical wall defect and mild global hypokinesis. Findings suggestive of nonischemic cardiomyopathy. No evidence of stress-induced ischemia. Images were suboptimal because of significant uptake in the subdiaphragmatic area. 01/11 Patient is seen today in follow-up on the cardiac stepdown unit. Patient has been maintained on IV Lasix 40 mg twice daily. Repeat blood work reveals sodium 132, potassium 3.8, BUN 29 creatinine 1.28. Patient states that her breathing is better. No chest pain. Echocardiogram reveals severe LV systolic dysfunction with EF of 25 to 30%, mild to moderate mitral regurgitation, mild aortic regurgitation. Results of echocardiogram reviewed with the patient and family at bedside. Physical examination: Gen: This is a 73-year-old female in no acute distress VS: reviewed HEENT: Head is atraumatic, normocephalic. Pupils equal, round. Sclerae is anict lauren. NECK: Supple. No JVD. LUNGS: Diminished at the bases, no wheezing. No intercostal retractions. HEART: Regular rate and rhythm. 2/6 systolic murmur. ABDOMEN: Soft No tenderness. EXTREMITIES: No pedal edema. No calf tenderness. NEUROLOGICAL: Patient is awake, alert and oriented x3. Assessment: Flat troponins not indicative of acute coronary syndrome Acute on chronic systolic heart failure Nonischemic cardiomyopathy Recent large-volume thoracentesis Ovarian cancer Pancytopenia Dyslipidemia Hypertension Plan: Continue patient's home cardiac medications Continue patient on IV Lasix decreased to 20 mg twice daily Monitor MILE, daily weights, electrolytes and renal function Further recommendations to follow based upon clinical course Nurse practitioner note has been reviewed, I agree with documented findings and plan of care. Patient was seen and examined. Objective - Vital Signs Vital signs: Vital Signs Temp 98.3 F 01/12/24 08:30 Pulse 74 01/12/24 13:58 Resp 16 01/12/24 13:58 BP 111/68 01/12/24 12:00 Pulse Ox 98 01/12/24 12:00 FiO2 Intake & Output 01/11/24 01/12/24 01/12/24 18:59 06:59 18:59 Output Total 400 Balance -400 Weight 55.792 kg 49.5 kg Output: Urine 400 Other: Voiding Method Toilet Toilet - Labs CBC & Chem 7: 01/11/24 12:30 01/12/24 07:18 Labs: Abnormal Lab Results - Last 24 Hours (Table) 01/12/24 Range/Units 07:18 Sodium 132 L (137-145) mmol/L Chloride 95 L (98-107) mmol/L BUN 29 H (7-17) mg/dL Creatinine 1.28 H (0.52-1.04) mg/dL Glucose 101 H (74-99) mg/dL
[2024-01-12] MEDS: ALPRAZolam 0.25 MG TAB PO PRN (19:59)
[2024-01-12] MEDS: FUROSEMIDE 10 MG/ML 2 ML VIAL IV SCH (19:59)
[2024-01-13 03:28] VITALS: RESP 16
[2024-01-13] MEDS: SACUBITRIL/VALSARTAN 24 MG-26 MG TABLET PO SCH (09:04)
[2024-01-13] MEDS: FUROSEMIDE 20 MG TAB PO SCH (09:15)
[2024-01-13] MEDS: METOPROLOL SUCCINATE (ER) 25 MG TAB.ER.24H PO SCH (09:15)
[2024-01-13 10:16] LABS: African American GFR (CKD) 31 (>60 ml/min/1.73 sqM); Anion Gap 5 mmol/L; Blood Urea Nitrogen 42 mg/dL (7-17); Calcium 9.2 mg/dL (8.4-10.2); Carbon Dioxide 34 mmol/L (22-30); Chloride 88 mmol/L (98-107); Glucose 168 mg/dL (74-99); Magnesium 1.6 mg/dL (1.6-2.3); Non-African American GFR(CKD) 27 (>60 ml/min/1.73 sqM); Potassium 3.9 mmol/L (3.5-5.1); Sodium 127 mmol/L (137-145)
--- NOTE | 2024-01-13 11:17 | P.PN ---
Subjective Progress Note Date: 01/13/24 Hospital Course: Patient is a 73-year-old female with history of recurrent ovarian cancer, syst olic heart failure with EF 25 to 30%, hypertension, GERD, dyslipidemia presenting with shortness of breath. In the ED, temperature was 97.9, pulse 83, respiratory rate 24, blood pressure 154/88, saturating at 92% on room air. WBC 8.7, hemoglobin 10.0, platelet 119, sodium 132, creatinine 0.97, bicarb 20, anion gap 7, AST 45, ALT 48, troponin 0.026, proBNP 59,000, total bili 1.1. EKG showed sinus rhythm with nonspecific ST-T wave changes. Chest x-ray independently interpreted did not show any acute process. Chest CTA shows cortical filling defect in the right lower lobe could represent pulmonary embolism, moderate pleural effusion with associated atelectasis. Patient being admitted for acute shortness of breath in the setting of pleural effusion and suspected pulmonary embolism. Started on heparin drip. Pulmonology consulted. She was recently admitted to [facility], and was noted to have pleural effusion which was drained. She was also noted to have a filling defect on CTA on 12/18, was started on heparin drip. Repeat CTA next day did not show the filling defect, likely secondary to a lymph node. Heparin drip was discontinued at that time. Heparin drip again discontinued. Likely has acute CHF exacerbation. Has mildly elevated troponin. Cardiology also consulted. Was on IV Lasix. Likely over diuresed. Now having hyponatremia, and RAVEN. Subjective: Patient seen and examined at bedside. No acute events overnight. Breathing has improved. Making adequate urine. She is complaining of some lightheadedness and low blood pressures. Pertinent positives and negatives as discussed above, a complete review of systems was performed and all other systems are negative. Vitals Signs Reviewed. General: nontoxic, no distress, appears at stated age Derm: warm, dry Head: atraumatic, normocephalic, symmetric Eyes: EOMI, no lid lag, anicteric sclera, pupils equal round reactive to light ENT: Nose and ears atraumatic Neck: No thyromegaly, supple Mouth: no lip lesion, mucus membranes moist Cardiovascular: S1S2 reg, no murmur, no edema Lungs: Bibasilar Rales, more prominent on the right, no wheeze, no accessory muscle use Abdominal: soft, nontender to palpation, no guarding, no appreciable organomegaly Ext: no gross muscle atrophy, muscle strength muscle strength 5 out of 5 in all 4 extremities, no contractures Neuro: CN II-XII grossly intact Psych: Alert, oriented, appropriate affect Data Reviewed Today: Pertinent Labs: Sodium 127, bicarb 34, creatinine 1.87, magnesium 1.6 Imaging: No new imaging Assessment and Plan: Active: Acute systolic CHF exacerbation, symptoms improved Moderate right-sided pleural effusion Right lower lobe pulmonary embolism less likely, as it was previously ruled out 2 weeks ago Acute kidney injury Hypovolemic hyponatremia Contraction metabolic alkalosis Hypomagnesemia, resolved Elevated troponin, unlikely to be ACS -Patient has symptomatic from hypotension, likely overdiuresis given hyponatremia and metabolic alkalosis -We will hold off diuretics for now, carvedilol changed to metoprolol succinate 25 mg daily, Farxiga decreased to 5 mg daily, hold Entresto and Aldactone -If blood pressure improves, will restart medications for heart failure -Cardiology and pulmonology following -Repeat BMP tomorrow -Continue telemetry monitoring -Intake and output -Daily weights Chronic: History of ovarian cancer, currently on maintenance therapy Hypertension Dyslipidemia GERD Depression DVT ppx: Subcu heparin Code status: Full code Anticipated discharge place: Pending clinical course Anticipated discharge time: Pending clinical course Objective - Vital Signs Vital signs: Vital Signs Temp 98.3 F 01/13/24 03:27 Pulse 67 01/13/24 09:43 Resp 16 01/13/24 09:43 BP 90/56 01/13/24 08:57 Pulse Ox 98 01/13/24 08:57 FiO2 Intake & Output 01/12/24 01/13/24 01/13/24 18:59 06:59 18:59 Intake Total 120 120 118 Output Total 750 Balance -630 120 118 Weight 49.5 kg 49.6 kg Intake: Oral 120 120 118 Output: Urine 750 Other: Voiding Method Toilet Toilet Toilet - Labs CBC & Chem 7: 01/11/24 12:30 01/13/24 09:20 Labs: Abnormal Lab Results - Last 24 Hours (Table) 01/13/24 Range/Units 09:20 Sodium 127 L (137-145) mmol/L Chloride 88 L (98-107) mmol/L Carbon Dioxide 34 H (22-30) mmol/L BUN 42 H (7-17) mg/dL Creatinine 1.87 H (0.52-1.04) mg/dL Glucose 168 H (74-99) mg/dL
--- NOTE | 2024-01-13 12:59 | P.PN ---
Subjective Progress Note Date: 01/13/24 Principal diagnosis: Pleural effusion. Patient is a 73-year-old white female with past medical history significant for ovarian cancer status post total hysterectomy and chemotherapy, congestive heart failure, hypertension, hyperlipidemia. Of note, patient was recently hospitali zed at [facility] approximately 2 weeks ago, she had a right-sided pleural effusion, and did have a thoracentesis. She was told that the fluid was because of heart failure. No reported history of metastasis within the chest. An echocardiogram done February, at our facility estimates a severely reduced ejection fraction of 25 to 30% as well as severe pulmonary hypertension and moderate to severe mitral regurgitation. While inpatient at [facility], she was reportedly also worked up for possible pulmonary embolism, which was apparently later ruled out. I do not have access to these records. Patient returns to our emergency department yesterday morning complaining of progressiv jamal worsening shortness of breath over the last couple weeks. She states that her shortness of breath is particularly bad when exerting herself or when lying flat. She wakes up in the middle night gasping for air. No associated lower extremity edema. She does not normally take Lasix outpatient. She has been experiencing some left-sided chest pain, which comes and goes, described as nonradiating, and associated with her shortness of breath. No heart palpitations or syncopal events. Admits becoming lightheadedness occasionally when standing. She does have a intermittent dry cough. No other infectious symptoms such as fever, sputum production, hemoptysis. Initial chest x-ray showed mild cardiomegaly and mild vascular congestion. No focal infiltrates, pneumothoraces, or obvious large pleural effusions. NT proBNP was significantly elevated at 59,900. There was a follow-up chest CTA identifying a moderate size right-sided pleural effusion with associated atelectasis. There was also questionable filling defects in the right lower lobe extending to the area of being compressed by the moderate right-sided pleural effusions. Unable to rule out pulmonary embolism. CBC on arrival: WBC count 8.7, hemoglobin 10, hematocrit 32.5, platelets 119,000. CMP on arrival: Sodium 132, potassium 4.3, chloride 105, serum bicarb 20, BUN 22, creatinine 0.97, glucose 111. LFTs mildly elevated. Lactic acid 1.3. Troponins 0.026, 0.037, and 0.036 respectively. Flat, not likely indicative of ACS. EKG shows normal sinus rhythm without any obvious acute ischemic changes. She is currently in the emergency department, room 3. She is resting comfortably on room air. No respiratory distress while at rest. She does endorse shortness of breath with any kind of exertion. Patient was previously started on a IV heparin infusion per protocol, later discontinued by admitting physician. Hemodynamically stable. Progress note dated January 12, 2024. The patient is seen today in room 361. She is currently on room air. Not receiving any IV fluids. She has a very small pleural effusion. Not worth doing a thoracentesis in my opinion. She is not having any shortness of breath. The patient was seen in consultation yesterday. Please see the extensive note above. Current laboratory data includes a sodium 132, potassium 3.8, chlorides 95, CO2 25, anion gap 12, BUN 29, creatinine 1.28. Glucose was 101. Calcium 9.6, magnesium 1.9. The patient's N-terminal proBNP on admission was 59,900. Progress note dated January 13, 2024. This is a 73-year-old female seen today in room 361. She was admitted with a diagnosis of CHF, and a small right-sided pleural effusion. She did not require thoracentesis. The patient is currently on room air. She is not receiving any IV fluids. Clinically, she is very stable. Current labs include a sodium 127, potassium 3.9, chlorides 88, CO2 34, BUN 42, and creatinine 1.87. Glucose is 168. Calcium 9.2. Magnesium 1.6. Objective - Vital Signs Vital signs: Vital Signs Temp 98.3 F 01/13/24 03:27 Pulse 65 01/13/24 11:35 Resp 16 01/13/24 11:35 BP 106/64 01/13/24 11:35 Pulse Ox 94 L 01/13/24 11:35 FiO2 Intake & Output 01/12/24 01/13/24 01/13/24 18:59 06:59 18:59 Intake Total 120 120 118 Output Total 750 Balance -630 120 118 Weight 49.5 kg 49.6 kg Intake: Oral 120 120 118 Output: Urine 750 Other: Voiding Method Toilet Toilet Toilet - Exam No acute distress, oriented 3. Patient is currently on room air. No respiratory distress. HEENT examination is grossly unremarkable. Mucous membranes are moist. No oral lesions. Neck supple. Full range of motion. No adenopathy thyromegaly or neck vein distention. Cardiovascular examination reveals regular rhythm rate. S1-S2 normal. No S3 or S4. No discernible murmur noted. Heart rate 65 bpm. Lungs reveal clear breath sounds. Breath sounds are equal bilaterally. No adventitious lung sounds including wheezes rhonchi or crackles. Room air saturation is 95 %. Abdomen soft bowel sounds are heard. No masses or tenderness. Extremities are intact. No cyanosis clubbing or edema. Skin is without rash or lesion. Neurologic examination is brief but nonfocal. - Labs CBC & Chem 7: 01/11/24 12:30 01/13/24 09:20 Labs: Abnormal Lab Results - Last 24 Hours (Table) 01/13/24 Range/Units 09:20 Sodium 127 L (137-145) mmol/L Chloride 88 L (98-107) mmol/L Carbon Dioxide 34 H (22-30) mmol/L BUN 42 H (7-17) mg/dL Creatinine 1.87 H (0.52-1.04) mg/dL Glucose 168 H (74-99) mg/dL Assessment and Plan Assessment: Acute dyspnea, likely secondary to exacerbation of systolic congestive heart failure and recurrent small /moderate right-sided pleural effusion. History of bilateral pleural effusions, with recent right-sided thoracentesis. Atypical chest pain. Elevated troponins, not consistent with ACS. History of ovarian cancer status post chemotherapy. History of total hysterectomy. History of severe nonischemic cardiomyopathy. Ejection fraction of 25 to 30%, as well as severe pulmonary hypertension, and moderate to severe mitral regurgitation. History of hypertension. History of hyperlipidemia. Plan: Plan dated January 12, 2024. The patient's ultrasound showed a small to moderate effusion. The patient does not need a thoracentesis at this time. She is currently asymptomatic. She is on room air. She is not having any respiratory issues or problems. In the future, if she does, at that time, we will do the thoracentesis. Labs, x-rays, medications are reviewed. Prognosis is guarded. We will continue to follow the patient, and make recommendations. Plan dated January 13, 2024. The patient is seen today room 361. The patient is currently on room air. She is not receiving any IV fluids. The patient has a very small right-sided pleural effusion. No need for thoracentesis at this time. We will continue to follow make recommendations along the way. Prognosis is certainly guarded. Time with Patient: Less than 30
--- NOTE | 2024-01-13 13:05 | P.PN ---
Subjective Progress Note Date: 01/13/24 Reason for Consult (text): Elevated troponins, CHF History of present illness: This is a 73-year-old female patient of Dr. Chen with past medical history of dyslipidemia, hypertension, nonischemic cardiomyopathy, left carotid bruit, ovarian cancer on maintenance therapy. We have been asked to evaluate the patient for elevated troponins and CHF. Patient states that she has had shortness of breath for a few weeks and worsening. 3 weeks ago she did have a large-volume thoracentesis done at [facility]. She was feeling that the shortness of breath was very similar to when she needed the thoracentesis and decided to come into the hospital. She also is complaining of back pain. She also has ankle edema. She has been on Lasix in the past but she states that her oncologist and Dr. Chen have been working with her medications as her electrolytes have been abnormal and she has currently off Lasix. Patient was given 1 dose of IV Lasix 60 mg and followed by Lasix 40 mg every 12 hours. She is seen today in the emergency center waiting for a bed on the cardiac stepdown unit. Pulmonary medicine is on consult. EKG sinus rhythm with no acute ST changes. Chest x-ray: Mild cardiomegaly. Otherwise no definite acute process. CTA of the chest revealed cortical filling defects in the right lower lobe extending to the area of lung being compressed by moderate right pleural effusions findings could represent pulmonary embolus. No additional filling defects visualized. Moderate pleural effusion with associated atelectasis. Chest ultrasound: Small right pleural effusion. Laboratory studies: WBC 8.7, hemoglobin 10, platelet count 119. INR 1.2. Sodium 132, potassium 4.3, BUN 22 and creatinine 0.97. Troponin 0.026, 0.037 and 0.036. AST 45, ALT 48. proBNP 59,900 Home cardiac medications: Iron 1 tablet daily, Coreg 6.25 mg twice daily, Farxiga 10 mg daily, magnesium oxide 400 mg twice daily, rosuvastatin 5 mg daily, Entresto 24 mg / 26 mg 1 tablet twice daily, spironolactone 12.5 mg daily. Echocardiogram performed 02/14/2023 revealed EF of 25 to 30%, severe pulmonary hypertension, moderate to severe mitral regurgitation. Repeat echocardiogram performed on 05/02/2023 in the office revealed EF of 35 to 40%, mild aortic regurgitation, moderate mitral regurgitation, moderate tricuspid regurgitation, PASP 46 mmHg, mild to moderate pulmonic regurgitation. Lexiscan Cardiolite SPECT stress test performed in the office on 04/20/2023 re vealed nondiagnostic electrocardiographic stress testing. Abnormal myocardial perfusion imaging with fixed anterior apical wall defect and mild global hypokinesis. Findings suggestive of nonischemic cardiomyopathy. No evidence of stress-induced ischemia. Images were suboptimal because of significant uptake in the subdiaphragmatic area. 01/11 Patient is seen today in follow-up on the cardiac stepdown unit. Patient has been maintained on IV Lasix 40 mg twice daily. Repeat blood work reveals sodium 132, potassium 3.8, BUN 29 creatinine 1.28. Patient states that her breathing is better. No chest pain. Echocardiogram reveals severe LV systolic dysfunction with EF of 25 to 30%, mild to moderate mitral regurgitation, mild aortic regurgitation. Results of echocardiogram reviewed with the patient and family at bedside. 01/12 Patient has been maintained on IV Lasix decreased yesterday to 20 mg twice daily. She states that her breathing is much better today. She is off oxygen. Weight is down 6 kg. Blood pressure 106/64, heart rate 65, pulse ox 94% on room air. Repeat blood work reveals sodium 127, potassium 3.9, BUN 42 creatinine 1.87. Physical examination: Gen: This is a 73-year-old female in no acute distress VS: reviewed HEENT: Head is atraumatic, normocephalic. Pupils equal, round. Sclerae is anicteric. LUNGS: Clear to auscultation, no wheezing. No intercostal retractions. HEART: Regular rate and rhythm. 2/6 systolic murmur. ABDOMEN: Soft No tenderness. EXTREMITIES: No pedal edema. No calf tenderness. NEUROLOGICAL: Patient is awake, alert and oriented x3. Assessment: Flat troponins not indicative of acute coronary syndrome Acute on chronic systolic heart failure Nonischemic cardiomyopathy Recent large-volume thoracentesis Ovarian cancer Pancytopenia Dyslipidemia Hypertension Plan: Continue patient's home cardiac medications Transition IV Lasix to oral 20 mg twice daily, resume Entresto Monitor MILE, daily weights, electrolytes and renal function Patient is cleared for discharge from cardiology and may follow-up with Dr. Chen in 1 to 2 weeks. Nurse practitioner note has been reviewed, I agree with documented findings and plan of care. Patient was seen and examined. Objective - Vital Signs Vital signs: Vital Signs Temp 98.3 F 01/13/24 03:27 Pulse 60 01/13/24 03:27 Resp 16 01/13/24 03:27 BP 104/60 01/13/24 03:27 Pulse Ox 99 01/13/24 03:27 FiO2 Intake & Output 01/12/24 01/13/24 01/13/24 18:59 06:59 18:59 Intake Total 120 120 Output Total 750 Balance -630 120 Weight 49.5 kg 49.6 kg Intake: Oral 120 120 Output: Urine 750 Other: Voiding Method Toilet Toilet - Labs CBC & Chem 7: 01/11/24 12:30 01/13/24 09:20 Labs: Abnormal Lab Results - Last 24 Hours (Table) 01/12/24 Range/Units 07:18 Sodium 132 L (137-145) mmol/L Chloride 95 L (98-107) mmol/L BUN 29 H (7-17) mg/dL Creatinine 1.28 H (0.52-1.04) mg/dL Glucose 101 H (74-99) mg/dL
[2024-01-13] MEDS: HEPARIN SODIUM,PORCINE 5,000 UNIT/ML 1 ML VIAL SQ SCH (16:29)
[2024-01-14] MEDS: DAPAGLIFLOZIN PROPANEDIOL 5 MG TABLET PO SCH (08:34)
--- NOTE | 2024-01-14 09:12 | P.PN ---
Subjective Progress Note Date: 01/14/24 Principal diagnosis: Cardiomyopathy The patient is a pleasant 73-year-old female patient with a past medical history significant for history of ovarian cancer and nonischemic cardiomyopathy was admitted to the hospital with heart failure January 14, 2024 The patient was seen and evaluated this morning. She is feeling somewhat better. She seems to be euvolemic. Lasix was held yesterday because of the low sodium and low blood pressure. Also her TASHA inhibitor was held yesterday. We are awaiting for the result of the blood work from this morning. The physical examination is remarkable for regular rhythm with a distant heart sounds and clear breathing sounds bilaterally and no edema was noted Assessment Nonischemic cardiomyopathy Marginally low blood pressure Electrolytes imbalance Plan Continue the current medical regimen Follow-up with the blood work Consider starting the patient on small dose of oral diuretics Follow-up with the patient Objective - Vital Signs Vital signs: Vital Signs Temp 98.0 F 01/14/24 03:13 Pulse 56 L 01/14/24 03:13 Resp 16 01/14/24 03:13 BP 118/71 01/14/24 03:13 Pulse Ox 97 01/14/24 03:13 FiO2 Intake & Output 01/13/24 01/14/24 01/14/24 18:59 06:59 18:59 Intake Total 354 Balance 354 Weight 50.1 kg Intake: Oral 354 Other: Voiding Method Toilet Toilet - Labs CBC & Chem 7: 01/11/24 12:30 01/13/24 09:20 Labs: Abnormal Lab Results - Last 24 Hours (Table) 01/13/24 Range/Units 09:20 Sodium 127 L (137-145) mmol/L Chloride 88 L (98-107) mmol/L Carbon Dioxide 34 H (22-30) mmol/L BUN 42 H (7-17) mg/dL Creatinine 1.87 H (0.52-1.04) mg/dL Glucose 168 H (74-99) mg/dL
[2024-01-14 10:11] LABS: African American GFR (CKD) 45 (>60 ml/min/1.73 sqM); Anion Gap 8 mmol/L; Blood Urea Nitrogen 49 mg/dL (7-17); Calcium 9.1 mg/dL (8.4-10.2); Carbon Dioxide 31 mmol/L (22-30); Chloride 87 mmol/L (98-107); Glucose 234 mg/dL (74-99); Magnesium 1.7 mg/dL (1.6-2.3); Non-African American GFR(CKD) 39 (>60 ml/min/1.73 sqM); Sodium 126 mmol/L (137-145)
[2024-01-14 10:13] LABS: Potassium 4.6 mmol/L (3.5-5.1)
--- NOTE | 2024-01-14 12:55 | P.PN ---
Subjective Progress Note Date: 01/14/24 Principal diagnosis: Pleural effusion. Patient is a 73-year-old white female with past medical history significant for ovarian cancer status post total hysterectomy and chemotherapy, congestive heart failure, hypertension, hyperlipidemia. Of note, patient was recently hospitali zed at [facility] approximately 2 weeks ago, she had a right-sided pleural effusion, and did have a thoracentesis. She was told that the fluid was because of heart failure. No reported history of metastasis within the chest. An echocardiogram done February, at our facility estimates a severely reduced ejection fraction of 25 to 30% as well as severe pulmonary hypertension and moderate to severe mitral regurgitation. While inpatient at [facility], she was reportedly also worked up for possible pulmonary embolism, which was apparently later ruled out. I do not have access to these records. Patient returns to our emergency department yesterday morning complaining of progressiv jamal worsening shortness of breath over the last couple weeks. She states that her shortness of breath is particularly bad when exerting herself or when lying flat. She wakes up in the middle night gasping for air. No associated lower extremity edema. She does not normally take Lasix outpatient. She has been experiencing some left-sided chest pain, which comes and goes, described as nonradiating, and associated with her shortness of breath. No heart palpitations or syncopal events. Admits becoming lightheadedness occasionally when standing. She does have a intermittent dry cough. No other infectious symptoms such as fever, sputum production, hemoptysis. Initial chest x-ray showed mild cardiomegaly and mild vascular congestion. No focal infiltrates, pneumothoraces, or obvious large pleural effusions. NT proBNP was significantly elevated at 59,900. There was a follow-up chest CTA identifying a moderate size right-sided pleural effusion with associated atelectasis. There was also questionable filling defects in the right lower lobe extending to the area of being compressed by the moderate right-sided pleural effusions. Unable to rule out pulmonary embolism. CBC on arrival: WBC count 8.7, hemoglobin 10, hematocrit 32.5, platelets 119,000. CMP on arrival: Sodium 132, potassium 4.3, chloride 105, serum bicarb 20, BUN 22, creatinine 0.97, glucose 111. LFTs mildly elevated. Lactic acid 1.3. Troponins 0.026, 0.037, and 0.036 respectively. Flat, not likely indicative of ACS. EKG shows normal sinus rhythm without any obvious acute ischemic changes. She is currently in the emergency department, room 3. She is resting comfortably on room air. No respiratory distress while at rest. She does endorse shortness of breath with any kind of exertion. Patient was previously started on a IV heparin infusion per protocol, later discontinued by admitting physician. Hemodynamically stable. Progress note dated January 12, 2024. The patient is seen today in room 361. She is currently on room air. Not receiving any IV fluids. She has a very small pleural effusion. Not worth doing a thoracentesis in my opinion. She is not having any shortness of breath. The patient was seen in consultation yesterday. Please see the extensive note above. Current laboratory data includes a sodium 132, potassium 3.8, chlorides 95, CO2 25, anion gap 12, BUN 29, creatinine 1.28. Glucose was 101. Calcium 9.6, magnesium 1.9. The patient's N-terminal proBNP on admission was 59,900. Progress note dated January 13, 2024. This is a 73-year-old female seen today in room 361. She was admitted with a diagnosis of CHF, and a small right-sided pleural effusion. She did not require thoracentesis. The patient is currently on room air. She is not receiving any IV fluids. Clinically, she is very stable. Current labs include a sodium 127, potassium 3.9, chlorides 88, CO2 34, BUN 42, and creatinine 1.87. Glucose is 168. Calcium 9.2. Magnesium 1.6. Progress note dated January 14, 2024. The patient is seen today in room 361. She is currently on room air. She is not receiving any IV fluids. The patient has no respiratory issues. She denies any shortness of breath, cough, wheezing, chest tightness, or phlegm production. The patient also denies any chest pain or pressure. Current labs today include a sodium 126, potassium 4.6, chlorides 87, CO2 31, BUN 49, creatinine 1.37. Glucose is 234. Objective - Vital Signs Vital signs: Vital Signs Temp 97.6 F 01/14/24 08:00 Pulse 64 01/14/24 08:00 Resp 16 01/14/24 08:00 BP 117/66 01/14/24 08:00 Pulse Ox 97 01/14/24 08:00 FiO2 Intake & Output 01/13/24 01/14/24 01/14/24 18:59 06:59 18:59 Intake Total 354 1198 Output Total 550 Balance 354 648 Weight 50.1 kg Intake: Oral 354 1198 Output: Urine 550 Other: Voiding Method Toilet Toilet Toilet - Exam No acute distress, oriented 3. Patient is currently on room air. No respi ratory distress. HEENT examination is grossly unremarkable. Mucous membranes are moist. No oral lesions. Neck supple. Full range of motion. No adenopathy thyromegaly or neck vein distention. Cardiovascular examination reveals regular rhythm rate. S1-S2 normal. No S3 or S4. No discernible murmur noted. Heart rate 64 bpm. Lungs reveal clear breath sounds. Breath sounds are equal bilaterally. No adventitious lung sounds including wheezes rhonchi or crackles. Room air saturation is 97 %. Abdomen soft bowel sounds are heard. No masses or tenderness. Extremities are intact. No cyanosis clubbing or edema. Skin is without rash or lesion. Neurologic examination is brief but nonfocal. - Labs CBC & Chem 7: 01/11/24 12:30 01/14/24 08:20 Labs: Abnormal Lab Results - Last 24 Hours (Table) 01/14/24 Range/Units 08:20 Sodium 126 L (137-145) mmol/L Chloride 87 L (98-107) mmol/L Carbon Dioxide 31 H (22-30) mmol/L BUN 49 H (7-17) mg/dL Creatinine 1.37 H (0.52-1.04) mg/dL Glucose 234 H (74-99) mg/dL Assessment and Plan Assessment: Acute dyspnea, likely secondary to exacerbation of systolic congestive heart failure and recurrent small /moderate right-sided pleural effusion. History of bilateral pleural effusions, with recent right-sided thoracentesis. Atypical chest pain. Elevated troponins, not consistent with ACS. History of ovarian cancer status post chemotherapy. History of total hysterectomy. History of severe nonischemic cardiomyopathy. Ejection fraction of 25 to 30%, as well as severe pulmonary hypertension, and moderate to severe mitral regurgitation. History of hypertension. History of hyperlipidemia. Plan: Plan dated January 12, 2024. The patient's ultrasound showed a small to moderate effusion. The patient does not need a thoracentesis at this time. She is currently asymptomatic. She is on room air. She is not having any respiratory issues or problems. In the future, if she does, at that time, we will do the thoracentesis. Labs, x-rays, medications are reviewed. Prognosis is guarded. We will continue to follow the patient, and make recommendations. Plan dated January 13, 2024. The patient is seen today room 361. The patient is currently on room air. She is not receiving any IV fluids. The patient has a very small right-sided pleural effusion. No need for thoracentesis at this time. We will continue to follow make recommendations along the way. Prognosis is certainly guarded. Plan dated January 14, 2024. The patient is seen today in room 361. She has a small right-sided pleural effusion. The patient does not require thoracentesis at this time. In the future, she may. Labs, x-rays, medications are reviewed. The patient is on room air. The patient is not receiving any IV fluids. Will continue to follow the patient, make recommendations. Prognosis is guarded. Time with Patient: Less than 30
--- NOTE | 2024-01-14 15:09 | P.PN ---
Subjective Progress Note Date: 01/14/24 Hospital Course: Patient is a 73-year-old female with history of recurrent ovarian cancer, syst olic heart failure with EF 25 to 30%, hypertension, GERD, dyslipidemia presenting with shortness of breath. In the ED, temperature was 97.9, pulse 83, respiratory rate 24, blood pressure 154/88, saturating at 92% on room air. WBC 8.7, hemoglobin 10.0, platelet 119, sodium 132, creatinine 0.97, bicarb 20, anion gap 7, AST 45, ALT 48, troponin 0.026, proBNP 59,000, total bili 1.1. EKG showed sinus rhythm with nonspecific ST-T wave changes. Chest x-ray independently interpreted did not show any acute process. Chest CTA shows cortical filling defect in the right lower lobe could represent pulmonary embolism, moderate pleural effusion with associated atelectasis. Patient being admitted for acute shortness of breath in the setting of pleural effusion and suspected pulmonary embolism. Started on heparin drip. Pulmonology consulted. She was recently admitted to [facility], and was noted to have pleural effusion which was drained. She was also noted to have a filling defect on CTA on 12/18, was started on heparin drip. Repeat CTA next day did not show the filling defect, likely secondary to a lymph node. Heparin drip was discontinued at that time. Heparin drip again discontinued. Likely has acute CHF exacerbation. Has mildly elevated troponin. Cardiology also consulted. Was on IV Lasix. Likely over diuresed. Now having hyponatremia, and RAVEN. RAVEN resolving. Still hyponat remic. Studies pending. Subjective: Patient seen and examined at bedside. No acute events overnight. Breathing has improved. Making adequate urine. Pertinent positives and negatives as discussed above, a complete review of systems was performed and all other systems are negative. Vitals Signs Reviewed. General: nontoxic, no distress, appears at stated age Derm: warm, dry Head: atraumatic, normocephalic, symmetric Eyes: EOMI, no lid lag, anicteric sclera, pupils equal round reactive to light ENT: Nose and ears atraumatic Neck: No thyromegaly, supple Mouth: no lip lesion, mucus membranes moist Cardiovascular: S1S2 reg, no murmur, no edema Lungs: Bibasilar Rales, more prominent on the right, no wheeze, no accessory muscle use Abdominal: soft, nontender to palpation, no guarding, no appreciable organomegaly Ext: no gross muscle atrophy, muscle strength muscle strength 5 out of 5 in all 4 extremities, no contractures Neuro: CN II-XII grossly intact Psych: Alert, oriented, appropriate affect Data Reviewed Today: Pertinent Labs: Sodium 126, bicarb 31, creatinine 1.37, magnesium 1.7 Imaging: No new imaging Assessment and Plan: Active: Acute systolic CHF exacerbation, symptoms improved Moderate right-sided pleural effusion Right lower lobe pulmonary embolism less likely, as it was previously ruled out 2 weeks ago Acute kidney injury, resolving Hypovolemic hyponatremia, stable Contraction metabolic alkalosis, improving Hypomagnesemia, resolved Elevated troponin, unlikely to be ACS -Discussed management with cardiology, restarted on lisinopril 2.5 mg daily -Continue metoprolol succinate 25 mg daily -Waiting for repeat sodium, if stable or improving, patient to be discharged home with small dose of diuretics -Pulmonology note reviewed, continue current therapy -Repeat BMP pending -Continue telemetry monitoring -Intake and output -Daily weights Chronic: History of ovarian cancer, currently on maintenance therapy Hypertension Dyslipidemia GERD Depression DVT ppx: Subcu heparin Code status: Full code Anticipated discharge place: Pending clinical course Anticipated discharge time: Pending clinical course Objective - Vital Signs Vital signs: Vital Signs Temp 97.6 F 01/14/24 08:00 Pulse 70 01/14/24 14:00 Resp 16 01/14/24 14:00 BP 127/75 01/14/24 12:00 Pulse Ox 97 01/14/24 12:00 FiO2 Intake & Output 01/13/24 01/14/24 01/14/24 18:59 06:59 18:59 Intake Total 354 1316 Output Total 550 Balance 354 766 Weight 50.1 kg Intake: Oral 354 1316 Output: Urine 550 Other: Voiding Method Toilet Toilet Toilet - Labs CBC & Chem 7: 01/11/24 12:30 01/14/24 08:20 Labs: Abnormal Lab Results - Last 24 Hours (Table) 01/14/24 Range/Units 08:20 Sodium 126 L (137-145) mmol/L Chloride 87 L (98-107) mmol/L Carbon Dioxide 31 H (22-30) mmol/L BUN 49 H (7-17) mg/dL Creatinine 1.37 H (0.52-1.04) mg/dL Glucose 234 H (74-99) mg/dL
[2024-01-15] MEDS: SPIRONOLACTONE 25 MG TAB PO SCH (08:52)
[2024-01-15 08:59] LABS: African American GFR (CKD) 52 (>60 ml/min/1.73 sqM); Anion Gap 6 mmol/L; Blood Urea Nitrogen 39 mg/dL (7-17); Calcium 9.6 mg/dL (8.4-10.2); Carbon Dioxide 32 mmol/L (22-30); Chloride 92 mmol/L (98-107); Glucose 101 mg/dL (74-99); Magnesium 1.8 mg/dL (1.6-2.3); Non-African American GFR(CKD) 45 (>60 ml/min/1.73 sqM); Potassium 4.3 mmol/L (3.5-5.1); Sodium 130 mmol/L (137-145)
--- NOTE | 2024-01-15 09:05 | P.PN ---
Subjective Progress Note Date: 01/15/24 Principal diagnosis: Cardiomyopathy The patient is a pleasant 73-year-old female patient with a past medical history significant for history of ovarian cancer and nonischemic cardiomyopathy was admitted to the hospital with heart failure January 14, 2024 The patient was seen and evaluated this morning. She is feeling somewhat better. She seems to be euvolemic. Lasix was held yesterday because of the low sodium and low blood pressure. Also her TASHA inhibitor was held yesterday. We are awaiting for the result of the blood work from this morning. The physical examination is remarkable for regular rhythm with a distant heart sounds and clear breathing sounds bilaterally and no edema was noted January 15, 2024 The patient was seen and evaluated this morning. She is feeling clinically better. She seems to be euvolemic. Her sodium has improved. She is tolerating the current dose of beta-dave and lisinopril and Aldactone was added which I would agree on. Examination is remarkable for stable vital signs with regular rate and rhythm and clear breathing sounds bilaterally and no edema was noted. Overall the patient is euvolemic and potentially can be discharged home. Assessment Nonischemic cardiomyopathy Marginally low blood pressure Electrolytes imbalance Plan Continue the current medical regimen potential discharge in the next 24 to 48 hours Objective - Vital Signs Vital signs: Vital Signs Temp 98.2 F 01/15/24 03:04 Pulse 59 L 01/15/24 03:04 Resp 16 01/15/24 03:04 BP 121/68 01/15/24 03:04 Pulse Ox 98 01/15/24 03:04 FiO2 Intake & Output 01/14/24 01/15/24 01/15/24 18:59 06:59 18:59 Intake Total 1556 Output Total 550 Balance 1006 Weight 49.8 kg Intake: Oral 1556 Output: Urine 550 Other: Voiding Method Toilet Toilet - Labs CBC & Chem 7: 01/11/24 12:30 01/15/24 07:31 Labs: Abnormal Lab Results - Last 24 Hours (Table) 01/14/24 01/14/24 01/14/24 Range/Units 08:20 12:20 12:20 Sodium 126 L (137-145) mmol/L Chloride 87 L (98-107) mmol/L Carbon Dioxide 31 H (22-30) mmol/L BUN 49 H (7-17) mg/dL Creatinine 1.37 H (0.52-1.04) mg/dL Glucose 234 H (74-99) mg/dL Urine Osmolality 313 L (400-1100) mOsm/kg Ur Random Sodium <20 L (40-220) mmol/L 01/14/24 01/15/24 Range/Units 15:01 07:31 Sodium 126 L 130 L (137-145) mmol/L Chloride 92 L (98-107) mmol/L Carbon Dioxide 32 H (22-30) mmol/L BUN 39 H (7-17) mg/dL Creatinine 1.21 H (0.52-1.04) mg/dL Glucose 101 H (74-99) mg/dL Urine Osmolality (400-1100) mOsm/kg Ur Random Sodium (40-220) mmol/L
--- NOTE | 2024-01-15 10:08 | P.DS ---
Providers Date of admission: 01/11/24 08:33 Expected date of discharge: 01/15/24 Attending physician: Juan Carlos Grajeda MD Consults: 01/10/24 12:00 Consult Physician Urgent Consulting Provider: Guido Hurtado Consult Reason/Comments: acute chest pain, pleural effusion, pulmonary embolism Do you want consulting provider notified?: Yes 01/10/24 17:03 Consult Physician Routine Consulting Provider: Riley Barcenas Consult Reason/Comments: elevated trop, CHF Do you want consulting provider notified?: Yes Primary care physician: Eliseo Carrera Hospital Course: Discharge Diagnosis: Acute systolic CHF exacerbation Moderate right-sided pleural effusion Right lower lobe pulmonary embolism less likely, as it was previously ruled out 2 weeks ago Acute kidney injury Hypovolemic hyponatremia Contraction metabolic alkalosis Hypomagnesemia Hospital Course: Patient is a 73-year-old female with history of recurrent ovarian cancer, systolic heart failure with EF 25 to 30%, hypertension, GERD, dyslipidemia presenting with shortness of breath. In the ED, temperature was 97.9, pulse 83, respiratory rate 24, blood pressure 154/88, saturating at 92% on room air. WBC 8.7, hemoglobin 10.0, platelet 119, sodium 132, creatinine 0.97, bicarb 20, anion gap 7, AST 45, ALT 48, troponin 0.026, proBNP 59,000, total bili 1.1. EKG showed sinus rhythm with nonspecific ST-T wave changes. Chest x-ray independently interpreted did not show any acute process. Chest CTA shows cortical filling defect in the right lower lobe could represent pulmonary embolism, moderate pleural effusion with associated atelectasis. Patient being admitted for acute shortness of breath in the setting of pleural effusion and suspected pulmonary embolism. Started on heparin drip. Pulmonology consulted. She was recently admitted to [facility], and was noted to have pleural effusion which was drained. She was also noted to have a filling defect on CTA on 12/18, was started on heparin drip. Repeat CTA next day did not show the filling defect, likely secondary to a lymph node. Heparin drip was discontinued at that time. Heparin drip again discontinued. Likely has acute CHF exacerbation. Has mildly elevated troponin. Cardiology also consulted. Was on IV Lasix. Patient developed hyponatremia and RAVEN, likely from overdiuresis. IV Lasix was held. Sodium and renal function improved. Patient being discharged home with guideline directed medical therapy for heart failure, as well as small dose of oral diuretics. Follow-up with cardiology outpatient. Patient seen and examined at bedside. Vital signs reviewed and stable. General: Nontoxic, no distress, appears at stated age Derm: Warm, dry Head: Atraumatic, normocephalic, symmetric Eyes: EOMI, no lid lag, anicteric sclera Mouth: No lip lesion, mucus membranes moist Cardiovascular: S1S2 reg, no murmur Lungs: CTA bilateral, no rhonchi, no rales, no accessory muscle use Abdominal: Soft, nontender to palpation, no guarding, no appreciable organomegaly Ext: No gross muscle atrophy, no edema, no contractures Neuro: CN II-XI grossly intact, no focal neuro deficits Psych: Alert, oriented, appropriate affect A total of 33 minutes of time were spent preparing this complex discharge summary. Patient was discharged on 01/15/2024 at 939. Patient Condition at Discharge: Stable Plan - Discharge Summary New Discharge Prescriptions: New Metoprolol Succinate (ER) [Toprol XL] 25 mg PO DAILY #60 tab lisinopriL [Zestril] 2.5 mg PO DAILY #60 tab Dapagliflozin Propanediol [Farxiga] 5 mg PO DAILY #60 tab Furosemide [Lasix] 20 mg PO DAILY #60 tab Continue Rosuvastatin Calcium 5 mg PO DAILY Pantoprazole Sodium [Protonix] 20 mg PO BID ALPRAZolam [Xanax] 0.25 mg PO DAILY PRN PRN Reason: Anxiety Spironolactone [Aldactone] 12.5 mg PO DAILY Sertraline [Zoloft] 25 mg PO DAILY Sennosides [Senokot] 17.2 mg PO DAILY Magnesium Oxide [Mag-Ox] 400 mg PO BID Iron 142mg (45fe) Tablet 1 tab PO DAILY Discontinued carvediloL [Coreg] 6.25 mg PO BID-W/MEALS Dapagliflozin Propanediol [Farxiga] 10 mg PO DAILY #30 tab Sacubitril/Valsartan [Entresto 24 mg-26 mg Tablet] 1 tab PO BID Discharge Medication List Pantoprazole Sodium [Protonix] 20 mg PO BID 02/13/23 [History] Rosuvastatin Calcium 5 mg PO DAILY 02/13/23 [History] ALPRAZolam [Xanax] 0.25 mg PO DAILY PRN 07/02/23 [History] Iron 142mg (45fe) Tablet 1 tab PO DAILY 07/02/23 [History] Magnesium Oxide [Mag-Ox] 400 mg PO BID 07/02/23 [History] Spironolactone [Aldactone] 12.5 mg PO DAILY 07/02/23 [History] Sennosides [Senokot] 17.2 mg PO DAILY 01/10/24 [History] Sertraline [Zoloft] 25 mg PO DAILY 01/10/24 [History] Dapagliflozin Propanediol [Farxiga] 5 mg PO DAILY #60 tab 01/15/24 [Rx] Furosemide [Lasix] 20 mg PO DAILY #60 tab 01/15/24 [Rx] Metoprolol Succinate (ER) [Toprol XL] 25 mg PO DAILY #60 tab 01/15/24 [Rx] lisinopriL [Zestril] 2.5 mg PO DAILY #60 tab 01/15/24 [Rx] Follow up Appointment(s)/Referral(s): Eliseo Carrera DO [Primary Care Provider] - 1-2 days (Call office to set up follow up appointment to be seen in 1-2 days ) Christopher Arenas MD [STAFF PHYSICIAN] - 1 Week (follow up with Dr. Chen in 1 week. Call to set up appointment ) Patient Instructions/Handouts: Heart Failure (DC) Activity/Diet/Wound Care/Special Instructions: Please see your PCP and cardiology. You may need repeat blood work in 1 week to check your electrolytes. Discharge Disposition: HOME SELF-CARE
[2024-01-15 10:10] VITALS: BP 116/69; PULSE 64; TEMP 98
== END 2024-01-15 11:39 | disposition home or self-care (01) | DRG 291 ==
LOC: EC 08:22 → 3SCARD 11:55 → OBSVTOIN 01-11 08:33 → 3SCARD 01-11 20:38
PROVIDERS: ADMIT Student in an Organized Health Care Education/Training Program; ATTEND Student in an Organized Health Care Education/Training Program
DX: I11.0 Hypertensive heart disease with heart failure (principal); I50.23 Acute on chronic systolic (congestive) heart failure; E87.1 Hypo-osmolality and hyponatremia; N17.9 Acute kidney failure, unspecified; J98.11 Atelectasis; E87.3 Alkalosis; D61.818 Other pancytopenia; C56.9 Malignant neoplasm of unspecified ovary; T50.1X5A Adverse effect of loop [high-ceiling] diuretics, initial encounter; M19.90 Unspecified osteoarthritis, unspecified site; E86.1 Hypovolemia; E83.42 Hypomagnesemia; R79.89 Other specified abnormal findings of blood chemistry; I42.8 Other cardiomyopathies; R07.89 Other chest pain; E78.5 Hyperlipidemia, unspecified; I37.1 Nonrheumatic pulmonary valve insufficiency; I27.20 Pulmonary hypertension, unspecified; Z92.21 Personal history of antineoplastic chemotherapy; Z85.43 Personal history of malignant neoplasm of ovary; Z79.899 Other long term (current) drug therapy; Z79.84 Long term (current) use of oral hypoglycemic drugs
CPT/HCPCS: 36415; 71046; 71275; 76604; 76770; 80048; 80053; 83605; 83735; 83880; 83930; 83935; 84295; 84300; 84484; 85025; 85610; 85730; 93005; 93306; 96365; 96366; 96367; 96372; 96375; 96376; 99291

== ENCOUNTER → 2024-07-03 | Outpatient (CLI) | payer MEDICARE ==
--- NOTE | 2024-07-03 09:38 | US ---
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 TECHNIQUE: Grayscale, color Doppler and spectral Doppler evaluation of the bilateral carotid systems and vertebral arteries. Indirect Doppler criteria was utilized. FINDINGS: EXAM MEASUREMENTS: RIGHT: Peak Systolic Velocity (PSV) cm/sec ----- Right CCA: 59 ----- Right ICA: 85.2 ----- Right ECA: 64.8 ICA/CCA ratio: 1.4 RIGHT: End Diastole cm/sec ----- Right CCA: 12.5 ----- Right ICA: 24.1 ----- Right ECA: 0 LEFT: Peak Systolic Velocity (PSV) cm/sec ----- Left CCA: 53.2 ----- Left ICA: 108.4 ----- Left ECA: 85.2 ICA/CCA ratio: 2.0 LEFT: End Diastole cm/sec ----- Left CCA: 9.6 ----- Left ICA: 28.5 ----- Left ECA: 0 VERTEBRALS (direction of flow): Right Vertebral: Antegrade Left Vertebral: Antegrade Rhythm: Normal ELECTRICAL PROSPECTING OPERATOR NOTES: No significant stenosis seen Color Doppler imaging shows patency with blood flow throughout the carotid artery. Spectral waveforms are within normal limits. Mild atherosclerotic plaque at the bilateral carotid bulbs. IMPRESSION: No ultrasound evidence for hemodynamically significant stenosis of the bilateral visualized carotid a rterial systems. Criteria for Assigning % of Stenosis / Diameter reduction (Estimation based on the indirect measurements of the internal carotid artery velocities (ICA PSV). 1. Normal (no stenosis)=ICA PSV < 125 cm/s: ratio < 2.0: ICA EDV<40 cm/s. 2. Less than 50% stenosis=ICA PSV < 125 cm/s: ratio < 2.0: ICA EDV<40 cm/s. 3. 50 to 69% stenosis=ICA PSV of 125 to 230 cm/s: ration 2.0 ? 4.0: ICA EDV 40-100 cm/s. 4. Greater than 70% stenosis to near occlusion= ICA PSV > 230 cm/s: ratio > 4.0: ICA EDV > 100 cm/s. 5. Near occlusion= ICA PSV velocities may be low or undetectable: variable ratio and ICA EDV. 6. Total occlusion=unable to detect flow. [facility], , 07/03/2024 9:36 AM
== END | disposition home or self-care (01) ==
LOC: RADUSWWP 07:29
PROVIDERS: ATTEND Internal Medicine
DX: I65.23 Occlusion and stenosis of bilateral carotid arteries (principal)
CPT/HCPCS: 93880

== ENCOUNTER 2024-12-09 04:48 | Observation (INO) | payer MEDICARE ==
--- NOTE | 2024-12-09 04:59 | ED ---
Chest Pain HPI - General Chief Complaint: Chest Pain Stated Complaint: Whole right arm pain Time Seen by Provider: 12/09/24 04:59 Source: patient, family, RN notes reviewed, old records reviewed Mode of arrival: ambulatory Limitations: no limitations - History of Present Illness Initial Comments: This is a 74 female to the ER with chest pain. Patient has history of ovarian cancer right-sided Mediport coming in with right-sided chest pain severe starting last night. She does have shortness of breath always has shortness of breath mild nausea no vomiting no travel history no sick contacts no other complaints MD Complaint: chest pain, other (Right-sided chest pain severe) -: days(s) Onset: during rest, during exertion Pain Location: right chest Pain Radiation: RUE, back Severity: severe Severity scale (1-10): 10 Quality: tightness, aching Consistency: constant Improves With: nothing Worsens With: nothing Anginal Symptoms: sense of impending doom Other Symptoms: palpitations Treatments Prior to Arrival: none - Related Data Home Medications Medication Instructions Recorded Confirmed Rosuvastatin Calcium 5 mg PO DAILY 02/13/23 11/15/24 Iron 142mg (45fe) Tablet 1 tab PO DIRECTED 07/02/23 11/15/24 Magnesium Oxide [Mag-Ox] 400 mg PO BID 07/02/23 11/15/24 Spironolactone [Aldactone] 25 mg PO BID 07/02/23 11/15/24 DULoxetine HCL [Cymbalta] 30 mg PO DAILY 10/01/24 11/15/24 Dapagliflozin Propanediol [Farxiga] 10 mg PO DAILY 11/15/24 11/15/24 Furosemide [Lasix] 20 mg PO DAILY 11/15/24 11/15/24 HYDROcodone/APAP 10-325MG [[place] 1 tab PO Q4HR PRN 11/15/24 11/15/24 10-325] Magnesium Hydroxide [Milk of 0 mg PO BID 11/15/24 11/15/24 Magnesia] Pantoprazole Sodium 40 mg PO BID 11/15/24 11/15/24 Sacubitril/Valsartan [Entresto 49 1 each PO BID 11/15/24 11/15/24 mg-51 mg Tablet] Sennosides/Docusate Sodium [Senna 1 each PO TID 11/15/24 11/15/24 Plus 8.6-50 mg Tablet] busPIRone HCL [Buspar] 7.5 mg PO Q12HR 11/15/24 11/15/24 hydrOXYzine HCL [Atarax] 5 mg PO HS 11/15/24 11/15/24 oxyCODONE ER [OxyCONTIN] 10 mg PO Q12HR 11/15/24 11/15/24 Previous Rx's Medication Instructions Recorded Metoprolol Succinate (ER) [Toprol 25 mg PO DAILY #60 tab 01/15/24 XL] Allergies Allergy/AdvReac Type Severity Reaction Status Date / Time No Known Allergies Allergy Verified 12/09/24 04:57 Review of Systems ROS Statement: Those systems with pertinent positive or pertinent negative responses have been documented in the HPI. ROS Other: All systems not noted in ROS Statement are negative. EKG Findings - EKG Comments: EKG Findings:: EKG is sinus 71 DC 167 QRS 95 QTc 490 - EKG Results: EKG: interpreted by DEMARCUS Past Medical History Past Medical History: Cancer, Hypertension, Osteoarthritis (OA) Additional Past Medical History / Comment(s): Hx ovarian CA, constipation, urinary leakage, anemia History of Any Multi-Drug Resistant Organisms: None Reported Past Surgical History: Appendectomy, Bladder Surgery, Hysterectomy Additional Past Surgical History / Comment(s): bladder suspension, lymph nodes, spleen and part of bowel removed with hysterectomy Past Anesthesia/Blood Transfusion Reactions: No Reported Reaction Past Psychological History: No Psychological Hx Reported Smoking Status: Never smoker - Past Family History Brother(s) Family Medical History: Cancer Mother Family Medical History: Cancer Additional Family Medical History / Comment(s): Bone cancer Father History Unknown: Yes Family Medical History: Cancer General Exam General appearance: alert, in no apparent distress, anxious, cachectic Head exam: Present: atraumatic, normocephalic, normal inspection Eye exam: Present: normal appearance, PERRL, EOMI. Absent: scleral icterus, conjunctival injection, periorbital swelling ENT exam: Present: normal exam, mucous membranes moist Neck exam: Present: normal inspection. Absent: tenderness, meningismus, lymphadenopathy Respiratory exam: Present: normal lung sounds bilaterally. Absent: respiratory distress, wheezes, rales, rhonchi, stridor Cardiovascular Exam: Present: regular rate, normal rhythm, normal heart sounds. Absent: systolic murmur, diastolic murmur, rubs, gallop, clicks GI/Abdominal exam: Present: soft, normal bowel sounds. Absent: distended, tenderness, guarding, rebound, rigid Extremities exam: Present: normal inspection, full ROM, normal capillary refill. Absent: tenderness, pedal edema, joint swelling, calf tenderness Back exam: Present: normal inspection Neurological exam: Present: alert, oriented X3, CN II-XII intact Psychiatric exam: Present: normal affect, normal mood Skin exam: Present: warm, dry, intact, normal color. Absent: rash Course Vital Signs 12/09/24 04:55 Temperature 97.8 F Pulse Rate 80 Respiratory 20 Rate Blood Pressure 158/72 O2 Sat by Pulse 97 Oximetry - Reevaluation(s) Reevaluation #1: 12/09/24 05:44 Medical records reviewed Reevaluation #2: 12/09/24 06:54 Pain is well-controlled Reevaluation #4: Was pt. sent in by a medical professional or institution (, PA, LAW SECRETARY, urgent care, hospital, or [facility]...) When possible be specific @ -no Did you speak to anyone other than the patient for history (EMS, parent, family, police, friend...)? What history was obtained from this source @ -no Did you review nursing and triage notes (agree or disagree)? Why? @ -agree Are old charts reviewed (outside hosp., previous admission, EMS record, old EKG, old radiological studies, urgent care reports/EKG's, [facility] records)? Report findings @ -yes Differential Diagnosis (chest pain, altered mental status, abdominal pain women, abdominal pain men, vaginal bleeding, weakness, fever, dyspnea, syncope, heada sujata, dizziness, GI bleed, back pain, seizure, CVA, palpatations, mental health, musculoskeletal)? @ -prior EKG interpreted by me (3pts min.). @ -yes X-rays interpreted by me (1pt min.). @ -yes negative for acute disease CT interpreted by me (1pt min.). @ -no U/S interpreted by me (1pt. min.). @ -no What testing was considered but not performed or refused? (CT, X-rays, U/S, labs)? Why? @ -none What meds were considered but not given or refused? Why? @ -none Did you discuss the management of the patient with other professionals (professionals i.e. , PA, LAW SECRETARY, lab, RT, psych nurse, community mental health social worker, creative manager, teacher, customs officer, case mgr)? Give summary @ -no Was smoking cessation discussed for >3mins.? @ -no Was critical care preformed (if so, how long)? @ -no Were there social determinants of health that impacted care today? How? (Homelessness, low income, unemployed, alcoholism, drug addiction, transportation, low edu. Level, literacy, decrease access to med. care, group home, rehab)? @ -none Was there de-escalation of care discussed even if they declined (Discuss DNR or withdrawal of care, Hospice)? DNR status @ -no What co-morbidities impacted this encounter? (DM, HTN, Smoking, COPD, CAD, Cancer, CVA, ARF, Chemo, Hep., AIDS, mental health diagnosis, sleep apnea, morbid obesity)? @ -none Was patient admitted / discharged? Hospital course, mention meds given and rou te, prescriptions, significant lab abnormalities, going to OR and other pertinent info. @ - Undiagnosed new problem with uncertain prognosis? @ -no Drug Therapy requiring intensive monitoring for toxicity (Heparin, Nitro, Insulin, Cardizem)? @ -no Were any procedures done? @ -no Diagnosis/symptom? @ - Acute, or Chronic, or Acute on Chronic? @ -Acute Uncomplicated (without systemic symptoms) or Complicated (systemic symptoms)? @ -Complicated Side effects of treatment? @ -no Exacerbation, Progression, or Severe Exacerbation? @ -exacerbation Poses a threat to life or bodily function? How? (Chest pain, [place], [place], pneumonia, PE, COPD, DKA, ARF, appy, cholecystitis, CVA, Diverticulitis, Homicidal, Suicidal, threat to staff... and all critical care pts) @ -yes Reevaluation #5: Differential Chest Pain: Stable Angina, Unstable Angina, STEMI, NSTEMI Aortic Dissection, Pneumothorax, Musculoskeletal, Esophageal Spasm GERD, Cholecystitis, Pancreatitis, Zoster, t his is not meant to be an all-inclusive list. Differential Dyspnea: Coronary syndrome, arrhythmia, tamponade, asthma, COPD, pulmonary embolism, pneumonia, pneumothorax, pulmonary effusion, anaphylaxis, diabetic ketoacidosis, flailed chest, pulmonary contusion, diaphragmatic rupture, anemia, neuromuscular, this is not meant to be an all-inclusive list. Chest Pain MDM - MDM 74 female in the ER for evaluation of severe left lower extremity pain and swelling Disposition Clinical Impression: Leg edema, left, Left leg pain Disposition: HOME SELF-CARE Condition: Good Instructions (If sedation given, give patient instructions): Leg Edema (ED) Is patient prescribed a controlled substance at d/c from ED?: No Referrals: Eliseo Carrera DO [Primary Care Provider] - 1-2 days
--- NOTE | 2024-12-09 05:39 | XR ---
EXAMINATION TYPE: XR chest 2V DATE OF EXAM: 12/09/2024 CLINICAL INDICATION: Female, 74 years old with history of Chest Pain, TECHNIQUE: Frontal and lateral views of the chest are obtained. COMPARISON: Chest x-ray January 10, 2024 FINDINGS: Stable right internal jugular Mediport catheter. Overlying EKG leads are redemonstrated. T here is no suspicious new focal air space opacity, pleural effusion, or pneumothorax seen. The cardi ac silhouette size is stable and upper limits of normal. The osseous structures are intact. IMPRESSION: No acute cardiopulmonary process. [facility], , 12/09/2024 5:37 AM
[2024-12-09] MEDS: HYDROmorphone 1 MG/ML 1 ML SYRINGE IVP STA ×2 (05:44→07:58)
[2024-12-09 05:55] LABS: Basophils # (A) 0.13 10*3/uL (0.00-0.10); Basophils % (A) 0.6 %; Eosinophils # (A) 0.15 10*3/uL (0.04-0.35); Eosinophils % (A) 0.6 %; HCT 25.1 % (37.2-46.3); Lymphocytes # (A) 2.18 10*3/uL (0.90-5.00); Lymphocytes % (A) 9.3 %; MCHC 32.3 g/dL (32.0-37.0); MCV 96.2 fL (80.0-97.0); Monocytes # (A) 2.15 10*3/uL (0.20-1.00); Monocytes % (A) 9.1 %; Neutrophils # (A) 18.49 10*3/uL (1.80-7.70); Neutrophils % (A) 78.6 %; Platelet Count 125 10*3/uL (140-440); RBC 2.61 10*6/uL (4.10-5.20); RDW 18.8 % (11.5-14.5); WBC 23.52 10*3/uL (4.50-10.00)
[2024-12-09 06:08] LABS: Partial Thromboplastin Time 59.5 sec (22.0-30.0)
[2024-12-09 06:26] LABS: ALT 14 U/L (4-34); AST 19 U/L (14-36); African American GFR (CKD) 51 (>60 ml/min/1.73 sqM); Albumin 3.7 g/dL (3.5-5.0); Alkaline Phosphatase 110 U/L (38-126); Anion Gap 12 mmol/L; Blood Urea Nitrogen 42 mg/dL (7-17); Calcium 9.5 mg/dL (8.4-10.2); Carbon Dioxide 19 mmol/L (22-30); Chloride 103 mmol/L (98-107); Glucose 140 mg/dL (74-99); Lipase 54 U/L (23-300); Magnesium 1.5 mg/dL (1.6-2.3); Non-African American GFR(CKD) 44 (>60 ml/min/1.73 sqM); Potassium 4.3 mmol/L (3.5-5.1); Sodium 134 mmol/L (137-145); Total Bilirubin 0.4 mg/dL (0.2-1.3); Total Protein 6.6 g/dL (6.3-8.2)
[2024-12-09 06:34] LABS: NT-Pro-B-Type Natriuretic Pept 7850 pg/mL
[2024-12-09 06:35] LABS: HGB 8.1 g/dL (12.0-15.0)
--- NOTE | 2024-12-09 07:18 | CT ---
EXAMINATION TYPE: CT angio chest DATE OF EXAM: 12/09/2024 COMPARISON: CTA chest February 13, 2023 CLINICAL INDICATION: Female, 74 years old with history of cp, Chest pain, right arm pain, TECHNIQUE: CTA scan of the thorax is performed with IV Contrast, patient injected with 45 mL of Isovue 370, pulm onary embolism protocol. MIP Images are created on CT scanner and reviewed. CT DLP: 248.6 mGycm. Automated Exposure Control for Dose Reduction was Utilized. FINDINGS: LUNGS: The lungs are grossly clear, there is no focal consolidation identified. There is pleural-base d elongated low dense 1.9 x 1.2 x 2.2 cm cm mass axial image 69 corresponding to coronal image 110. There is no pleural effusion or pneumothorax seen. The tracheobronchial tree is patent. HEART: Persistent cardiomegaly. At least moderate left atrial and left ventricular dilatation. At [place] st small to moderate coronary artery calcifications. MEDIASTINUM: There is satisfactory enhancement of the pulmonary artery and its branches, there is no CT evidence for pulmonary embolism. There are no greater than 1 cm hilar or mediastinal lymph nodes. No pericardial effusion is seen. Right internal jugular Mediport catheter terminates in SVC. OTHER: Tiny dependent gallstone in gallbladder. Scoliotic curvature in the spine. IMPRESSION: 1. No CT evidence for acute pulmonary embolism. 2. No suspicious acute pulmonary process. 3. Small pleural-based low dense posterior right midlung 1.9 x 1.2 x 2.2 cm mass favors benign etiolo gy. Consider PET CT follow-up to further evaluate [facility], , 12/09/2024 7:15 AM
[2024-12-09 07:31] LABS: Poikilocytosis (M) Present; RBC Fragments Present
[2024-12-09] MEDS: KETOROLAC 15 MG/ML 1 ML VIAL IVP STA (07:59)
[2024-12-09] MEDS: MAGNESIUM SULFATE-D5W PMX 1 GM in DEXTROSE/WATER 1 100ML.BAG IVPB SCH (07:59)
[2024-12-09] MEDS: LIDOCAINE 4% PATCH TOPICAL ONE (09:42)
[2024-12-09] MEDS: CYCLOBENZAPRINE 10 MG TAB PO STA (09:42)
[2024-12-09] MEDS ORDERED: MAG HYDROX/AL HYDROX/SIMETH 30 ML CUP PO PRN (10:21)
[2024-12-09] MEDS ORDERED: ALPRAZolam 0.25 MG TAB PO PRN (10:21)
[2024-12-09] MEDS ORDERED: CALCIUM CARBONATE 500 MG CHEWABLE PO PRN (10:21)
[2024-12-09] MEDS ORDERED: HYDROmorphone 0.5 MG/0.5 ML SYRINGE IVP PRN (10:21)
[2024-12-09] MEDS ORDERED: ONDANSETRON 4 MG/2 ML VIAL IVP PRN (10:21)
[2024-12-09] MEDS ORDERED: NALOXONE 0.4 MG/ML 1 ML VIAL IV PRN (10:21)
[2024-12-09] MEDS ORDERED: traMADol 50 MG TAB PO PRN (10:21)
[2024-12-09] MEDS ORDERED: ACETAMINOPHEN TAB 325 MG TAB PO PRN (10:21)
--- NOTE | 2024-12-09 12:57 | P.HPIM ---
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 Pain started this morning. Pain is 10/10 described as sharp and stabbing. Pain started around the right armpit and travels behind the back. Non tender to palpation. No changes with movement or deep inspiration. No associated shortness of breath. No fever or chills. No nausea or vomiting. No cough or chest pain. No changes in urination or bowel habits. In the ED she underwent extensive evaluation. BP 168/72, HR 68, RR 18, 97% on RA. CBC, Coag panel, CMP significant for WBC 23.53, RBC 2.61, Hg 8.1, Hct 25.1, APTT 59.5, Na 134, bicarb 19, BUN 42, Cr 1.23. BNP 7850. Trop < 0.012 x 2 with EKG showing sinus rhythm with no ST T wave changes. CTA chest showing no PE, small pleural based low dense posterior right midling 1.9x1.2x2.2 cm. Patient is admitted for further workup and management. Pertinent positives and negatives as discussed in HPI, a complete review of systems was performed and all other systems are negative. General: non toxic, no distress, appears at stated age Derm: warm, dry Head: atraumatic, normocephalic, symmetric Eyes: EOMI, no lid lag, anicteric sclera Mouth: no lip lesion, mucus membranes moist Cardiovascular: Normal S1 S2, no murmur, R chest port Lungs: Decreased breath sounds bilateral, no accessory muscle use Ext: no gross muscle atrophy, no edema, no contractures Neuro: no focal neuro deficits Psych: Alert, oriented, appropriate affect Based on my assessment of this patient, this patient meets a high complexity level of care. Intercoastal muscle strain vs intercoastal neuralgia: Monitor for rash (shing les). Reports Dilaudid does not help. Start Lidocaine patch. Hold Gabapentin 100 mg PO QHS and start Lyrica 75 mg PO BID. Restart [place] 10-325 mg PO TID + OxyIR 15 mg PO BID. Zanaflex 2 mg PO TID. Morphine 4 mg IV Q4H PRN. Leukocytosis: Unknown etiology. No signs of active infection. No SIRS or sepsis criteria. Monitor fever profile. Normocytic anemia with thrombocytopenia: Home med includes ferrous sulfate 142 mg PO MWF. Hypomagnesemia: Order 2g Mag sulfate. Repeat in the AM. Chronic kidney disease stage IIIb at baseline Systolic CHF with EF 25-30% not in acute exacerbation: Farxiga 10 mg PO QD. Lasix 20 mg PO QD. Metoprolol 25 mg PO QD. Entresto 49-51 mg PO BID. Aldactone 25 mg PO QD. Anxiety: Buspar 7.5 mg PO BID. Cymbalta 30 mg PO QD. Hypertension: Metoprolol, Entresto and Aldactone as above. GERD: Protonix 40 mg PO BID. Dyslipidemia: Crestor 5 mg PO QD. History of ovarian cancer with metastatic disease to the lung: Follows [facility] in [place]. CODE STATUS: FULL CODE DVT Prophylaxis: Heparin SQ GI Prophylaxis: Protonix PO Designated medical POA if patient is not able to make medical decisions for themselves: Daughter. I have reviewed the following portfolio consultant notes: ED note. I have reviewed the results of the following tests: As above. I have ordered the following tests: As above. I have discussed the care of this patient with the following independent historian: Daughter. BRIDGER. I have independently interpreted the following test below: CXR. I have discussed the management of this patient with the following physician: ED provider. Past Medical History Past Medical History: Cancer, Hypertension, Osteoarthritis (OA) Additional Past Medical History / Comment(s): Hx ovarian CA, constipation, urinary leakage, anemia History of Any Multi-Drug Resistant Organisms: None Reported Past Surgical History: Appendectomy, Bladder Surgery, Hysterectomy Additional Past Surgical History / Comment(s): bladder suspension, lymph nodes, spleen and part of bowel removed with hysterectomy Past Anesthesia/Blood Transfusion Reactions: No Reported Reaction Past Psychological History: No Psychological Hx Reported Smoking Status: Never smoker - Past Family History Brother(s) Family Medical History: Cancer Mother Family Medical History: Cancer Additional Family Medical History / Comment(s): Bone cancer Father History Unknown: Yes Family Medical History: Cancer Medications and Allergies Home Medications Medication Instructions Recorded Confirmed Type Rosuvastatin Calcium 5 mg PO DAILY 02/13/23 11/15/24 History Iron 142mg (45fe) Tablet 1 tab PO DIRECTED 07/02/23 11/15/24 History Magnesium Oxide [Mag-Ox] 400 mg PO BID 07/02/23 11/15/24 History Spironolactone [Aldactone] 25 mg PO BID 07/02/23 11/15/24 History Metoprolol Succinate (ER) [Toprol 25 mg PO DAILY #60 tab 01/15/24 11/15/24 Rx XL] DULoxetine HCL [Cymbalta] 30 mg PO DAILY 10/01/24 11/15/24 History Dapagliflozin Propanediol [Farxiga] 10 mg PO DAILY 11/15/24 11/15/24 History Furosemide [Lasix] 20 mg PO DAILY 11/15/24 11/15/24 History HYDROcodone/APAP 10-325MG [[place] 1 tab PO Q4HR PRN 11/15/24 11/15/24 History 10-325] Magnesium Hydroxide [Milk of 0 mg PO BID 11/15/24 11/15/24 History Magnesia] Pantoprazole Sodium 40 mg PO BID 11/15/24 11/15/24 History Sacubitril/Valsartan [Entresto 49 1 each PO BID 11/15/24 11/15/24 History mg-51 mg Tablet] Sennosides/Docusate Sodium [[place] 1 each PO TID 11/15/24 11/15/24 History Plus 8.6-50 mg Tablet] busPIRone HCL [Buspar] 7.5 mg PO Q12HR 11/15/24 11/15/24 History hydrOXYzine HCL [Atarax] 5 mg PO HS 11/15/24 11/15/24 History oxyCODONE ER [OxyCONTIN] 10 mg PO Q12HR 11/15/24 11/15/24 History Allergies Allergy/AdvReac Type Severity Reaction Status Date / Time No Known Allergies Allergy Verified 12/09/24 12:38 Physical Exam Vitals: Vital Signs Temp Pulse Resp BP Pulse Ox 12/09/24 12:11 71 18 158/73 97 12/09/24 10:56 63 18 155/70 97 12/09/24 09:40 70 18 157/65 97 12/09/24 08:50 62 18 167/73 97 12/09/24 07:54 68 18 168/72 97 12/09/24 04:55 97.8 F 80 20 158/72 97 Intake and Output 12/08/24 12/09/24 12/09/24 22:59 06:59 14:59 Other: Weight 50.802 kg Results CBC & Chem 7: 12/09/24 05:44 12/09/24 05:44 Labs: Abnormal Lab Results - Last 24 Hours (Table) 12/09/24 12/09/24 12/09/24 Range/Units 05:44 05:44 05:44 WBC 23.52 H (4.50-10.00) 10*3/uL RBC 2.61 L (4.10-5.20) 10*6/uL Hgb 8.1 L D (12.0-15.0) g/dL Hct 25.1 L (37.2-46.3) % Plt Count 125 L (140-440) 10*3/uL Immature Gran # 0.42 H (0.00-0.04) 10*3/uL Neutrophils # 18.49 H (1.80-7.70) 10*3/uL Monocytes # 2.15 H (0.20-1.00) 10*3/uL Basophils # 0.13 H (0.00-0.10) 10*3/uL APTT 59.5 H (22.0-30.0) sec Sodium 134 L (137-145) mmol/L Carbon Dioxide 19 L (22-30) mmol/L BUN 42 H (7-17) mg/dL Creatinine 1.23 H (0.52-1.04) mg/dL Glucose 140 H (74-99) mg/dL Magnesium 1.5 L (1.6-2.3) mg/dL
[2024-12-09] MEDS ORDERED: MAGNESIUM SULFATE-D5W PMX 1 GM in DEXTROSE/WATER 1 100ML.BAG IVPB SCH (13:00)
[2024-12-09] MEDS: PREGABALIN 75 MG CAP PO SCH (13:22)
[2024-12-09] MEDS: MORPHINE SULFATE 4 MG/ML SYRINGE IVP PRN (13:22)
[2024-12-09] MEDS: HYDROcodone/APAP 10-325MG 1 EACH TAB PO SCH (15:18)
[2024-12-09] MEDS: tiZANidine 4 MG TAB PO SCH (15:19)
[2024-12-09] MEDS: HYDROmorphone 1 MG/ML 1 ML SYRINGE IVP PRN (17:06)
[2024-12-09] MEDS: PANTOPRAZOLE 40 MG TABLET PO SCH (17:29)
[2024-12-09] MEDS: LACTULOSE 20 GM/30 ML CUP PO SCH (20:32)
[2024-12-09] MEDS: busPIRone HCl 5 MG TAB PO SCH (20:33)
[2024-12-09] MEDS: HEPARIN SODIUM,PORCINE 5,000 UNIT/ML 1 ML VIAL SQ SCH (20:33)
[2024-12-09] MEDS: SACUBITRIL/VALSARTAN 49 MG-51 MG TABLET PO SCH (20:34)
[2024-12-09] MEDS: oxyCODONE ER 15 MG TAB.ER.12H PO SCH (20:34)
[2024-12-09] MEDS: FAMOTIDINE 20 MG TAB PO SCH (20:34)
[2024-12-10 07:47] VITALS: BP 135/69; PULSE 72; RESP 14; TEMP 97.9
[2024-12-10] MEDS: DAPAGLIFLOZIN PROPANEDIOL 10 MG TABLET PO SCH (08:52)
[2024-12-10] MEDS: FUROSEMIDE 20 MG TAB PO SCH (08:54)
[2024-12-10 08:55] LABS: African American GFR (CKD) 49 (>60 ml/min/1.73 sqM); Anion Gap 10 mmol/L; Blood Urea Nitrogen 34 mg/dL (7-17); Calcium 9.5 mg/dL (8.4-10.2); Carbon Dioxide 22 mmol/L (22-30); Chloride 104 mmol/L (98-107); Glucose 113 mg/dL (74-99); Magnesium 2.3 mg/dL (1.6-2.3); Non-African American GFR(CKD) 43 (>60 ml/min/1.73 sqM); Potassium 4.8 mmol/L (3.5-5.1); Sodium 136 mmol/L (137-145)
[2024-12-10] MEDS: FERROUS SULFATE 325 MG TAB PO SCH (08:56)
[2024-12-10] MEDS: DULoxetine HCL 30 MG CAPSULE.DR PO SCH (08:57)
[2024-12-10] MEDS: MAGNESIUM OXIDE 400 MG TAB PO SCH (08:57)
[2024-12-10] MEDS: METOPROLOL SUCCINATE (ER) 25 MG TAB.ER.24H PO SCH (08:57)
[2024-12-10] MEDS: LIDOCAINE 4% PATCH TOPICAL SCH (08:58)
[2024-12-10] MEDS: ATORVASTATIN 10 MG TAB PO SCH (08:58)
[2024-12-10] MEDS: LORATADINE 10 MG TAB PO SCH (08:58)
[2024-12-10] MEDS ORDERED: ENOXAPARIN 40 MG/0.4 ML SYRINGE SQ SCH (09:00)
[2024-12-10 09:06] LABS: Basophils # (A) 0.19 10*3/uL (0.00-0.10); HCT 31.3 % (37.2-46.3); Lymphocytes % (A) 22.7 %; MCH 31.4 pg (27.0-32.0); MCHC 31.9 g/dL (32.0-37.0); MCV 98.4 fL (80.0-97.0); Mean Platelet Volume 12.8 fL (9.5-12.2); Monocytes # (A) 2.02 10*3/uL (0.20-1.00); Monocytes % (A) 10.4 %; Neutrophils # (A) 12.44 10*3/uL (1.80-7.70); Platelet Count 160 10*3/uL (140-440); RBC 3.18 10*6/uL (4.10-5.20); WBC 19.42 10*3/uL (4.50-10.00)
[2024-12-10] MEDS: SPIRONOLACTONE 25 MG TAB PO SCH (09:14)
--- NOTE | 2024-12-10 09:20 | P.DS ---
Providers Date of admission: 12/09/24 10:21 Attending physician: Jess Haynes MD [facility] Course: Discharge Diagnosis: Right-sided chest pain likely secondary to intercostal neuralgia, resolved Leukocytosis, recurrent, no source, no signs of infection Hypomagnesemia, resolved CKD stage IIIb at baseline CHF EF 25 to 30% not in acute exacerbation Anxiety Hypertension GERD Dyslipidemia History of ovarian cancer with metastatic disease to the lung Hospital Course: 74-year-old female with PMH of hypertension, GERD, dyslipidemia, systolic CHF with EF 25-30%, history of ovarian cancer with metastasis to the lung currently undergoing chemotherapy at [facility] in [place] presents the ED for intractable back pain. Pain started this morning. Pain is 10/10 described as sharp and stabbing. Pain started around the right armpit and travels behind the back. Non tender to palpation. No changes with movement or deep inspiration. No associated shortness of breath. No fever or chills. No nausea or vomiting. No cough or chest pain. No changes in urination or bowel habits. In the ED she underwent extensive evaluation. BP 168/72, HR 68, RR 18, 97% on RA. CBC, Coag panel, CMP significant for WBC 23.53, RBC 2.61, Hg 8.1, Hct 25.1, APTT 59.5, Na 134, bicarb 19, BUN 42, Cr 1.23. BNP 7850. Trop < 0.012 x 2 with EKG showing sinus rhythm with no ST T wave changes. CTA chest showing no PE, small pleural based low dens e posterior right midling 1.9x1.2x2.2 cm. Patient is admitted as observation for further workup and management. 5/ in the morning patient reports complete resolution of the pain, she ambulated to the bathroom with no issues, denied any skin rashes, dizziness, lightheadedness, chest pain, shortness of breath, abdominal pain. Patient feels ready for discharge, her vitals remained stable as well as blood work. Patient to follow-up with primary care physician regarding chest pain, leukocytosis, shingles vaccination Patient seen and examined at bedside.[] Vital signs reviewed and stable. General: [nontoxic], [no distress], [appears at stated age] Derm: [warm], [dry] Head: [atraumatic], [normocephalic], [symmetric] Eyes: [EOMI], [no lid lag], [anicteric sclera] Mouth: [no lip lesion], [mucus membranes moist] Cardiovascular: [S1S2 reg], [no murmur], right chest port Lungs: Decreased bilateral breath sounds bibasilarly [CTA bilateral], [no rhonchi, no rales] , [no accessory muscle use] Abdominal: [soft], [ nontender to palpation], [no guarding], [no appreciable organomegaly] Ext: [no gross muscle atrophy], [no edema], [no contractures] Neuro: [ CN II-XI grossly intact], [no focal neuro deficits] Psych: [Alert], [oriented], [appropriate affect] A total of 40 minutes of time were spent preparing this complex discharge summary. Patient was discharged on 12/10/2024. Patient Condition at Discharge: Good Plan - Discharge Summary New Discharge Prescriptions: Continue Rosuvastatin Calcium 5 mg PO DAILY Spironolactone [Aldactone] 25 mg PO DAILY Metoprolol Succinate (ER) [Toprol XL] 25 mg PO DAILY #60 tab hydrOXYzine HCL [Atarax] 10 - 20 mg PO HS PRN PRN Reason: SLEEP Sennosides/Docusate Sodium [Senna Plus 8.6-50 mg Tablet] 2 tab PO BID Pantoprazole Sodium 40 mg PO BID Furosemide [Lasix] 20 mg PO DAILY Ondansetron Odt [Zofran ODT] 4 mg PO Q8H PRN PRN Reason: Nausea tiZANidine [Zanaflex] 2 mg PO Q8HR Lactulose [Constulose] 10 gm PO BID Fluticasone Nasal [place] [Flonase Nasal [place]] 1 spray EA NOSTRIL BID PRN PRN Reason: Allergy Symptoms Ferrous Sulfate [Slow Release Iron] 142 mg PO MOWEFR Magnesium Oxide [Mag-Ox] 400 mg PO DAILY DULoxetine HCL [Cymbalta] 30 mg PO DAILY busPIRone HCL [Buspar] 7.5 mg PO Q12HR Sacubitril/Valsartan [Entresto 49 mg-51 mg Tablet] 1 tab PO BID HYDROcodone/APAP 10-325MG [[place] 10-325] 1 tab PO Q4HR Dapagliflozin Propanediol [Farxiga] 10 mg PO DAILY oxyCODONE ER [OxyCONTIN] 15 mg PO Q12HR Gabapentin [Neurontin] 100 mg PO HS Loratadine [Claritin] 10 mg PO DAILY Discharge Medication List Rosuvastatin Calcium 5 mg PO DAILY 02/13/23 [History] Magnesium Oxide [Mag-Ox] 400 mg PO DAILY 07/02/23 [History] Spironolactone [Aldactone] 25 mg PO DAILY 07/02/23 [History] Metoprolol Succinate (ER) [Toprol XL] 25 mg PO DAILY #60 tab 01/15/24 [Rx] DULoxetine HCL [Cymbalta] 30 mg PO DAILY 10/01/24 [History] Dapagliflozin Propanediol [Farxiga] 10 mg PO DAILY 11/15/24 [History] Furosemide [Lasix] 20 mg PO DAILY 11/15/24 [History] HYDROcodone/APAP 10-325MG [[place] 10-325] 1 tab PO Q4HR 11/15/24 [History] Pantoprazole Sodium 40 mg PO BID 11/15/24 [History] Sacubitril/Valsartan [Entresto 49 mg-51 mg Tablet] 1 tab PO BID 11/15/24 [History] Sennosides/Docusate Sodium [Senna Plus 8.6-50 mg Tablet] 2 tab PO BID 11/15/24 [History] busPIRone HCL [Buspar] 7.5 mg PO Q12HR 11/15/24 [History] hydrOXYzine HCL [Atarax] 10 - 20 mg PO HS PRN 11/15/24 [History] Ferrous Sulfate [Slow Release Iron] 142 mg PO MOWEFR 12/09/24 [History] Fluticasone Nasal [place] [Flonase Nasal [place]] 1 spray EA NOSTRIL BID PRN 12/09/24 [History] Gabapentin [Neurontin] 100 mg PO HS 12/09/24 [History] Lactulose [Constulose] 10 gm PO BID 12/09/24 [History] Loratadine [Claritin] 10 mg PO DAILY 12/09/24 [History] Ondansetron Odt [Zofran ODT] 4 mg PO Q8H PRN 12/09/24 [History] oxyCODONE ER [OxyCONTIN] 15 mg PO Q12HR 12/09/24 [History] tiZANidine [Zanaflex] 2 mg PO Q8HR 12/09/24 [History] Follow up Appointment(s)/Referral(s): Eliseo Carrera DO [Primary Care Provider] - 1-2 days Patient Instructions/Handouts: Leg Edema (ED) Activity/Diet/Wound Care/Special Instructions: Please, follow-up with your primary care physician. Discharge Disposition: HOME SELF-CARE
== END 2024-12-10 12:35 | disposition home or self-care (01) ==
LOC: EC 04:48 → 6NMEDSUR 10:21
PROVIDERS: ADMIT Internal Medicine; ATTEND Internal Medicine
DX: R07.89 Other chest pain (principal); I13.0 Hypertensive heart and chronic kidney disease with heart failure and stage 1 through stage 4 chronic kidney disease, or unspecified chronic kidney disease; I50.22 Chronic systolic (congestive) heart failure; N18.32 Chronic kidney disease, stage 3b; E83.42 Hypomagnesemia; C78.00 Secondary malignant neoplasm of unspecified lung; D64.9 Anemia, unspecified; D69.6 Thrombocytopenia, unspecified; K21.9 Gastro-esophageal reflux disease without esophagitis; E78.5 Hyperlipidemia, unspecified; D72.829 Elevated white blood cell count, unspecified; R00.2 Palpitations; F41.9 Anxiety disorder, unspecified; Z79.84 Long term (current) use of oral hypoglycemic drugs; Z79.891 Long term (current) use of opiate analgesic; Z79.899 Other long term (current) drug therapy; Z85.43 Personal history of malignant neoplasm of ovary
CPT/HCPCS: 96376 ×2; 96372 ×2; 96375 ×2; 96365; 96366; 99285; 36415; 93005; 83880; 80053; 80048; 83690; 83735 ×2; 84484; 85025 ×2; 85610; 85730; 71046; 71275; G0378 ×2; J2270; J1644 ×2; J1171; J3475; J1642; J1885; Q9967

== ENCOUNTER → 2024-12-17 | Outpatient (CLI) | payer MEDICARE ==
--- NOTE | 2024-12-17 08:35 | MM ---
Reason for Exam: Screening (asymptomatic). Last mammogram was performed 1 year(s) and 2 month(s) ago. Patient History: Menarche at age 12. First Full-Term at age 23. Left ovary removed at age 66. Right ovary removed at age 66. Hysterectomy at age 66. Postmenopausal. Ovarian cancer, age 66. Previous chemotherapy at age 66. Risk Values: Jenna 5 year model risk: 1.7%. NCI Lifetime model risk: 4.5%. Prior Study Comparison: 09/19/2017 Bilateral Screening Mammogram, [facility]. 09/20/2018 Bilateral Screening Mammogram, [facility]. 09/21/2019 Bilateral Screening Mammogram, [facility]. 10/20/2020 Bilateral Screening Mammogram, [facility]. 10/21/2021 Bilateral Screening Mammogram, [facility]. 10/22/2022 Bilateral MG 3D screening mammo w/cad, [facility]. 10/24/2023 Bilateral MG 3D screening mammo w/cad, [facility]. Tissue Density: The breasts are heterogeneously dense, which may obscure small masses. Findings: Analyzed By CAD. Mediport in the right axilla is partially imaged. There are a few benign round calcification in the bilateral breasts redemonstrated benign-appearing vascular calcifications in the right breast is again seen. There is stable 5 mm circumscribed mass in the right breast. Bilateral axillary lymph nodes are redemonstrated. There is no suspicious new group of microcalcifications or new suspicious mass in either breast. Overall Assessment: Benign, BI-RAD 2 Management: Screening Mammogram of both breasts in 1 year. Some advise annual bilateral breast ultrasound surveillance in patients with background dense tissue. Patient should continue monthly self-breast exams. A clinical breast exam by your physician is recommended on an annual basis. This exam should not preclude additional follow-up of suspicious palpable abnormalities. Note on Jenna scores and lifetime risk: 1. A Jenna score greater than 3% is considered moderate risk. If this is the case, consider specialist referral to assess eligibility for a risk reducing agent. 2. If overall lifetime risk for the development of breast cancer is 20% or higher, the patient may qualify for future screening with alternating mammogram and breast MRI. [facility], , 12/17/2024 8:32 AM. Electronically signed and approved by: Cuate Diamond M.D.
--- NOTE | 2024-12-17 09:18 | BD ---
EXAMINATION TYPE: Axial Bone Density DATE OF EXAM: 12/17/2024 CLINICAL HISTORY: 74 years old Female. ICD-10 CODE: M85.80 OSTEOPENIA , Additional History: Height: 61.5 Weight: 114 FRAX RISK QUESTIONS: Secondary Osteoporosis: RISK FACTORS HISTORY OF: MEDICATIONS: EXAM MEASUREMENTS: Bone mineral densitometry was performed using the [employer] System. Bone mineral density as measured about the Lumbar spine is: ----- L1-L4(G/cm2): 1.247 T Score Values are as follows: ----- L1: 0.0 ----- L2: -0.3 ----- L3: 1.5 ----- L4: 0.7 ----- L1-L4: 0.6 Z Score Values are as follows: ----- L1: 2.1 ----- L2: 1.9 ----- L3: 3.6 ----- L4: 2.9 ----- L1-L4: 2.7 Bone mineral density has: Decreased -0.3% since study of: 01-13-22 Bone mineral density about the R hip (g/cm2): 0.749 Bone mineral density about the L hip (g/cm2): 0.715 T Score values are as follows: -----R Neck: -2.4 -----L Neck: -2.3 -----R Total: -2.1 -----L Total: -2.3 Z Score values are as follows: -----R Neck: -0.3 -----L Neck: -0.2 -----R Total: -0.1 -----L Total: -0.4 Bone mineral density has: Decreased -6.6% since study of: 01-13-22 FRAX%s: The graph provided illustrates a 13.8% chance for a major osteoporotic fx and a 4.0% chance f or the hips probability for fx in 10 years time. IMPRESSION: Osteopenia (T Score between -2.5 and -1) remains present. There is slightly increased risk of fracture and the patient may be considered for treatment. Re-Screen 2-5 years. NOTE: T-SCORE=SD OF THE YOUNG ADULT MEAN. [facility], , 12/17/2024 9:16 AM
== END | disposition home or self-care (01) ==
LOC: RADMAMWWP 08:05
PROVIDERS: ATTEND Internal Medicine
DX: Z12.31 Encounter for screening mammogram for malignant neoplasm of breast (principal); R92.333 Mammographic heterogeneous density, bilateral breasts; M85.89 Other specified disorders of bone density and structure, multiple sites; Z78.0 Asymptomatic menopausal state
CPT/HCPCS: 77063; 77067; 77080

== ENCOUNTER → 2025-01-03 | Outpatient (CLI) | payer MEDICARE ==
[~2025-01-03] MED LIST changes: -LACTATED RINGERS 1,000 ML IV SCH; -LIDOCAINE 1% (10MG/ML) FOR IV START INTRADERMA PRN; +SODIUM CHLORIDE 0.9% 250 ML in EMPTY BAG 1 BAG IV PRN; +SODIUM CHLORIDE 0.9% 500 ML 500 ML in EMPTY BAG 1 BAG IV PRN
[2025-01-03 08:33] VITALS: BP 149/74; PULSE 80; RESP 16; TEMP 97.8
[2025-01-03 09:21] LABS: ALT 13 U/L (4-34); AST 19 U/L (14-36); African American GFR (CKD) 43 (>60 ml/min/1.73 sqM); Alkaline Phosphatase 118 U/L (38-126); Anion Gap 12 mmol/L; Calcium 9.8 mg/dL (8.4-10.2); Carbon Dioxide 21 mmol/L (22-30); Chloride 103 mmol/L (98-107); Glucose 131 mg/dL (74-99); Non-African American GFR(CKD) 38 (>60 ml/min/1.73 sqM); Potassium 4.4 mmol/L (3.5-5.1); Sodium 136 mmol/L (137-145); Total Bilirubin 0.4 mg/dL (0.2-1.3); Total Protein 6.8 g/dL (6.3-8.2)
[2025-01-03 09:30] LABS: Basophils # (A) 0.05 10*3/uL (0.00-0.10); Basophils % (A) 0.3 %; Eosinophils # (A) 0.17 10*3/uL (0.04-0.35); Eosinophils % (A) 0.9 %; HCT 27.7 % (37.2-46.3); Immature Platelet Fraction 12.5 % (1.1-6.1); Lymphocytes % (A) 11.7 %; MCH 32.7 pg (27.0-32.0); MCHC 32.5 g/dL (32.0-37.0); MCV 100.7 fL (80.0-97.0); Mean Platelet Volume 13.8 fL (9.5-12.2); Monocytes # (A) 1.07 10*3/uL (0.20-1.00); Neutrophils # (A) 14.22 10*3/uL (1.80-7.70); Neutrophils % (A) 79.3 %; Platelet Count 152 10*3/uL (140-440); RBC 2.75 10*6/uL (4.10-5.20); RDW 17.7 % (11.5-14.5); WBC 17.94 10*3/uL (4.50-10.00)
[2025-01-03 09:50] LABS: Poikilocytosis (M) Present; RBC Fragments Present
[2025-01-03 10:00] LABS: Blood Urea Nitrogen 111 mg/dL (7-17)
[2025-01-03 10:37] LABS: Appearance,Urine Cloudy (Clear); Bacteria,Urine Rare /hpf; Bilirubin,Urine Negative (Negative); Blood,Urine Negative (Negative); Color,Urine Colorless; Glucose,Urine (UA) 2+ (Negative); Ketones,Urine Negative (Negative); Leukocyte Esterase,Urine Large (Negative); Mucus,Urine Rare /hpf; Nitrite,Urine Negative (Negative); PH, Urine 5.5 (5.0-8.0); Protein,Urine Trace (Negative); RBC,Urine 1 /hpf (0-5); Specific Gravity,Urine 1.013 (1.001-1.035); Squamous Epithelial Cell,Urine <1 /hpf (0-4); Urobilinogen,Urine <2.0 mg/dL (<2.0); WBC,Urine >182 /hpf (0-5)
[2025-01-03 21:40] LABS: % Iron Saturation 90.39 (12.00-45.00); Iron 254 UG/DL (50-170); Total Iron Binding Capacity 281 UG/DL (228-460)
[2025-01-03 22:17] LABS: Urine Creatinine 26.3 mg/dL (28.0-217.0)
[2025-01-04 12:06] LABS: Free Kappa Lt Chain Qnt, Serum 2.84 mg/dL (0.33-1.94); Free Lambda Lt Chain Qnt, Seru 2.55 mg/dL (0.57-2.63)
[2025-01-05 02:44] LABS: Phosphorus 4.2 mg/dL (2.4-5.1); Uric Acid 5.6 mg/dL (2.9-7.7)
== END ==
LOC: PROCWHC3 08:15
PROVIDERS: ATTEND Internal Medicine
DX: N18.32 Chronic kidney disease, stage 3b (principal); D63.1 Anemia in chronic kidney disease; M10.9 Gout, unspecified; N39.0 Urinary tract infection, site not specified; R80.9 Proteinuria, unspecified; E55.9 Vitamin D deficiency, unspecified; N25.81 Secondary hyperparathyroidism of renal origin; R73.01 Impaired fasting glucose
CPT/HCPCS: 80053; 82728; 83540; 83550; 83735; 84100; 84166; 84550; 85025; 81001; 82306; 83970; 82043; 82570; 83883; 83036; 36591; J1642; 86334

== ENCOUNTER → 2025-01-15 | Outpatient (CLI) | payer MEDICARE ==
[2025-01-15 09:38] VITALS: BP 125/75; PULSE 78; RESP 16; TEMP 98
[2025-01-15 10:58] LABS: ALT 19 U/L (4-34); AST 24 U/L (14-36); African American GFR (CKD) 72 (>60 ml/min/1.73 sqM); Albumin 3.8 g/dL (3.5-5.0); Alkaline Phosphatase 84 U/L (38-126); Anion Gap 7 mmol/L; Blood Urea Nitrogen 43 mg/dL (7-17); Calcium 9.8 mg/dL (8.4-10.2); Carbon Dioxide 23 mmol/L (22-30); Chloride 100 mmol/L (98-107); Glucose 195 mg/dL (74-99); Non-African American GFR(CKD) 63 (>60 ml/min/1.73 sqM); Potassium 4.9 mmol/L (3.5-5.1); Sodium 130 mmol/L (137-145); Total Bilirubin 0.3 mg/dL (0.2-1.3); Total Protein 6.4 g/dL (6.3-8.2)
== END ==
LOC: PROCWHC3 09:28
PROVIDERS: ATTEND Internal Medicine
DX: C56.9 Malignant neoplasm of unspecified ovary (principal)
CPT/HCPCS: 80053; 36591; J1642